=== PATIENT | female | born 1935 | race American Indian/Alaskan Native ===

== ENCOUNTER 2019-06-20 10:15 | Observation (INO) | payer MEDICARE ==
[2019-06-20] MEDS ORDERED: IPRATROPIUM 0.02% NEBU 2.5 ML IH ONE (10:55)
[2019-06-20] MEDS ORDERED: ALBUTEROL 2.5 MG/3 ML NEBU IH ONE ×2 (10:55→14:11)
[2019-06-20] MEDS ORDERED: methylPREDNISolone Sod Succinate 125 MG/2 ML INJ IV ONE (10:56)
[2019-06-20] MEDS ORDERED: MAGNESIUM SULFATE 2 GM/50 ML BAG IV ONE (10:56)
--- NOTE | 2019-06-20 10:58 | XRay Report ---
CHEST 2 VIEWS INDICATION: Short of breath. COMPARISON: None FINDINGS: Support devices: None. Heart: Mild cardiomegaly Lungs/pleura: No acute air space or interstitial disease. No pneumothorax. Additional findings: None. IMPRESSION: Cardiomegaly. Signer Name: Emmett Hernandez Jr, MD Signed: 06/20/2019 10:54 AM Workstation Name: [id number]
--- NOTE | 2019-06-20 11:00 | Emergency Department Report ---
ED Shortness of Breath HPI - General Chief Complaint: Dyspnea/Respdistress Stated Complaint: SOB Time Seen by Provider: 06/20/19 10:51 Source: patient, old records reviewed (No previous record in [facility] available for review) Mode of arrival: Ambulatory Limitations: No Limitations - History of Present Illness Initial Comments: 84-year-old female the past medical history of okf-zctdqtt-qkrsndule diabetes presents to the hospital complains of with wheezing and shortness of breath worsening today. Of last month patient has had intermittent wheezing shortness of breath and was diagnosed with bronchitis by her primary care doctor. She completed a course of 5 days of antibiotics with last dose 4 days ago. Patient continues to have cough productive of clear sputum, wheezing, shortness of breath, but denies fever, leg edema, chest pain, or recent travel. She does not think she was recently prescribed steroids. Patient denies chronic heart or l feroz disease. - Related Data Allergies Allergy/AdvReac Type Severity Reaction Status Date / Time No Known Allergies Allergy Verified 06/20/19 10:21 ED Review of Systems ROS: Stated complaint: SOB Other details as noted in HPI Comment: All other systems reviewed and negative ED Past Medical Hx - Past Medical History Hx Diabetes: Yes - Surgical History Past Surgical History?: No - Social History Smoking Status: Never Smoker Substance Use Type: None ED Physical Exam - General Limitations: No Limitations - Other Other exam information: General: No acute distress Head: Atraumatic Eyes: normal appearance ENT: Moist mucous membranes Neck: Normal appearance, no midline tenderness Chest: Bilateral wheezing, accessory muscle use or tachypnea, intermittent coughing CV: Mildly tachycardic regular rhythm Abdomen: Soft, normal bowel sounds, nontender, nondistended, no rebound or guarding Back: Normal inspection Extremity: Normal inspection, full range of motion, no calf tenderness or leg edema Neuro: Alert O x 3, no facial asymmetry, speech clear, no gross motor sensory deficit Psych: Appropriate behavior Skin: No rash ED Course Vital Signs 06/20/19 06/20/19 06/20/19 10:24 11:02 11:05 Temperature 98.5 F Pulse Rate 102 H Pulse Rate [ 93 H Bilateral] Respiratory 16 Rate Respiratory 16 Rate [Bilateral ] Blood Pressure 166/77 Blood Pressure [Right] O2 Sat by Pulse 95 98 Oximetry 03/13/20 03/13/20 03/13/20 11:15 11:29 11:30 Temperature Pulse Rate 91 H 86 Pulse Rate [ Bilateral] Respiratory 19 18 18 Rate Respiratory Rate [Bilateral ] Blood Pressure 136/65 131/64 Blood Pressure [Right] O2 Sat by Pulse 93 100 93 Oximetry 06/20/19 06/20/19 06/20/19 11:31 11:45 12:00 Temperature 98.2 F Pulse Rate 86 87 88 Pulse Rate [ Bilateral] Respiratory 19 19 18 Rate Respiratory Rate [Bilateral ] Blood Pressure 140/68 134/67 Blood Pressure 136/65 [Right] O2 Sat by Pulse 96 95 93 Oximetry 06/20/19 06/20/19 06/20/19 12:15 12:30 12:45 Temperature Pulse Rate 88 88 85 Pulse Rate [ Bilateral] Respiratory 19 17 17 Rate Respiratory Rate [Bilateral ] Blood Pressure 127/69 135/71 129/71 Blood Pressure [Right] O2 Sat by Pulse 90 92 96 Oximetry 06/20/19 06/20/19 06/20/19 13:05 13:15 13:30 Temperature Pulse Rate 105 H 97 H 103 H Pulse Rate [ Bilateral] Respiratory 21 16 16 Rate Respiratory Rate [Bilateral ] Blood Pressure 129/71 129/71 177/86 Blood Pressure [Right] O2 Sat by Pulse 98 97 Oximetry 06/20/19 14:40 Temperature Pulse Rate Pulse Rate [ 93 H Bilateral] Respiratory Rate Respiratory 16 Rate [Bilateral ] Blood Pressure Blood Pressure [Right] O2 Sat by Pulse Oximetry ED Medical Decision Making - Lab Data Result diagrams: 06/20/19 11:05 06/20/19 11:05 Lab Results 06/20/19 06/20/19 06/20/19 Range/Units 11:05 11:05 11:05 WBC 7.0 (4.5-11.0) K/mm3 RBC 4.41 (3.65-5.03) M/mm3 Hgb 12.9 (10.1-14.3) gm/dl Hct 38.5 (30.3-42.9) % MCV 87 (79-97) fl MCH 29 (28-32) pg MCHC 33 (30-34) % RDW 16.2 H (13.2-15.2) % Plt Count 244 (140-440) K/mm3 [place] % (Auto) Proposal Specialist Add Manual Diff Complete Total Counted 100 Seg Neuts % (Manual) 58.0 (40.0-70.0) % Band Neutrophils % 0 % Lymphocytes % (Manual) 17.0 (13.4-35.0) % Reactive Lymphs % (Man) 0 % Monocytes % (Manual) 20.0 H (0.0-7.3) % Eosinophils % (Manual) 5.0 H (0.0-4.3) % Basophils % (Manual) 0 (0.0-1.8) % Metamyelocytes % 0 % Myelocytes % 0 % Promyelocytes % 0 % Blast Cells % 0 % Nucleated RBC % Not Reportable Seg Neutrophils # Man 4.1 (1.8-7.7) K/mm3 Band Neutrophils # 0.0 K/mm3 Lymphocytes # (Manual) 1.2 (1.2-5.4) K/mm3 Abs React Lymphs (Man) 0.0 K/mm3 Monocytes # (Manual) 1.4 H (0.0-0.8) K/mm3 Eosinophils # (Manual) 0.4 (0.0-0.4) K/mm3 Basophils # (Manual) 0.0 (0.0-0.1) K/mm3 Metamyelocytes # 0.0 K/mm3 Myelocytes # 0.0 K/mm3 Promyelocytes # 0.0 K/mm3 Blast Cells # 0.0 K/mm3 WBC Morphology Not Reportable Hypersegmented Neuts Not Reportable Hyposegmented Neuts Not Reportable Hypogranular Neuts Not Reportable Smudge Cells Not Reportable Toxic Granulation Not Reportable Toxic Vacuolation Not Reportable Dohle Bodies Not Reportable Pelger-Huet Anomaly Not Reportable Cindy Rods Not Reportable Platelet Estimate Consistent w auto Clumped Platelets Not Reportable Plt Clumps, EDTA Not Reportable Large Platelets Not Reportable Giant Platelets Not Reportable Platelet Satelliting Not Reportable Plt Morphology Comment Not Reportable RBC Morphology Not Reportable Dimorphic RBCs Not Reportable Polychromasia Not Reportable Hypochromasia Not Reportable Poikilocytosis Not Reportable Anisocytosis Not Reportable Microcytosis Not Reportable Macrocytosis Not Reportable Spherocytes Not Reportable Pappenheimer Bodies Not Reportable Sickle Cells Not Reportable Target Cells Not Reportable Tear Drop Cells Not Reportable Ovalocytes Not Reportable Helmet Cells Not Reportable [place] Bodies Not Reportable [place] Not Reportable [place] Cells Not Reportable Bite Cells Not Reportable Crenated Cell Not Reportable Elliptocytes Not Reportable Acanthocytes (Spur) Not Reportable Rouleaux Not Reportable Hemoglobin C Crystals Not Reportable Schistocytes Not Reportable Malaria parasites Not Reportable Hitesh Bodies Not Reportable Hem Pathologist Commnt No Sodium 138 (137-145) mmol/L Potassium 4.4 (3.6-5.0) mmol/L Chloride 103.3 (98-107) mmol/L Carbon Dioxide 20 L (22-30) mmol/L Anion Gap 19 mmol/L BUN 7 (7-17) mg/dL Creatinine 0.9 (0.7-1.2) mg/dL Estimated GFR > 60 ml/min BUN/Creatinine Ratio 8 % Glucose 142 H (65-100) mg/dL Calcium 9.1 (8.4-10.2) mg/dL Troponin T (0.00-0.029) ng/mL NT-Pro-B Natriuret Pep 54.38 (0-900) pg/mL 06/20/19 Range/Units 11:05 WBC (4.5-11.0) K/mm3 RBC (3.65-5.03) M/mm3 Hgb (10.1-14.3) gm/dl Hct (30.3-42.9) % MCV (79-97) fl MCH (28-32) pg MCHC (30-34) % RDW (13.2-15.2) % Plt Count (140-440) K/mm3 [place] % (Auto) Add Manual Diff Total Counted Seg Neuts % (Manual) (40.0-70.0) % Band Neutrophils % % Lymphocytes % (Manual) (13.4-35.0) % Reactive Lymphs % (Man) % Monocytes % (Manual) (0.0-7.3) % Eosinophils % (Manual) (0.0-4.3) % Basophils % (Manual) (0.0-1.8) % Metamyelocytes % % Myelocytes % % Promyelocytes % % Blast Cells % % Nucleated RBC % Seg Neutrophils # Man (1.8-7.7) K/mm3 Band Neutrophils # K/mm3 Lymphocytes # (Manual) (1.2-5.4) K/mm3 Abs React Lymphs (Man) K/mm3 Monocytes # (Manual) (0.0-0.8) K/mm3 Eosinophils # (Manual) (0.0-0.4) K/mm3 Basophils # (Manual) (0.0-0.1) K/mm3 Metamyelocytes # K/mm3 Myelocytes # K/mm3 Promyelocytes # K/mm3 Blast Cells # K/mm3 WBC Morphology Hypersegmented Neuts Hyposegmented Neuts Hypogranular Neuts Smudge Cells Toxic Granulation Toxic Vacuolation Dohle Bodies Pelger-Huet Anomaly Cindy Rods Platelet Estimate Clumped Platelets Plt Clumps, EDTA Large Platelets Giant Platelets Platelet Satelliting Plt Morphology Comment RBC Morphology Dimorphic RBCs Polychromasia Hypochromasia Poikilocytosis Anisocytosis Microcytosis Macrocytosis Spherocytes Pappenheimer Bodies Sickle Cells Target Cells Tear Drop Cells Ovalocytes Helmet Cells [place] Bodies [place] Cells Bite Cells Crenated Cell Elliptocytes Acanthocytes (Spur) Rouleaux Hemoglobin C Crystals Schistocytes Malaria parasites Hitesh Bodies Hem Pathologist Commnt Sodium (137-145) mmol/L Potassium (3.6-5.0) mmol/L Chloride (98-107) mmol/L Carbon Dioxide (22-30) mmol/L Anion Gap mmol/L BUN (7-17) mg/dL Creatinine (0.7-1.2) mg/dL Estimated GFR ml/min BUN/Creatinine Ratio % Glucose (65-100) mg/dL Calcium (8.4-10.2) mg/dL Troponin T < 0.010 (0.00-0.029) ng/mL NT-Pro-B Natriuret Pep (0-900) pg/mL - EKG Data -: EKG Interpreted by Me (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 COMPARISON: None FINDINGS: Support devices: None. Heart: Mild cardiomegaly Lungs/pleura: No acute air space or inte rstitial disease. No pneumothorax. Additional findings: None. IMPRESSION: Cardiomegaly. - Medical Decision Making Patient treated in the ED for several hours and received 2 rounds of continuous nebs, steroids, and magnesium and still has significant wheezing and shortness of breath. O2 sat ranges between 93 to 97% on room air. Patient also was recently treated with a Z-Isaiah without improvement and only has an inhaler at home which is not helping with her symptoms. Patient will be admitted to the hospital for further treatment of acute bronchitis with wheezing and shortness of breath. No infiltrate identified on x-ray - Differential Diagnosis Asthma, CHF, bronchitis Critical Care Time: No Critical care attestation.: If time is entered above; I have spent that time in minutes in the direct care of this critically ill patient, excluding procedure time. ED Disposition Clinical Impression: Acute bronchitis, Wheezing, Failure of outpatient treatment Disposition: OP ADMIT IP TO THIS HOSP Is pt being admited?: Yes Condition: Stable Time of Disposition: 15:36 (Dr. Thomas/hospitalist)
[2019-06-20 11:33] LABS: Hematocrit 38.5 % (30.3-42.9); Hemoglobin 12.9 gm/dl (10.1-14.3); Mean Corpuscular HGB Conc 33 % (30-34); Mean Corpuscular Volume 87 fl (79-97); Platelet Count 244 K/mm3 (140-440); Red Blood Count 4.41 M/mm3 (3.65-5.03); Red Cell Distribution Width 16.2 % (13.2-15.2)
[2019-06-20 11:44] LABS: BUN/Creatinine Ratio 8; Blood Urea Nitrogen 7 mg/dL (7-17); Calcium 9.1 mg/dL (8.4-10.2); Hemolysis Index 3
[2019-06-20 13:19] LABS: Basophils % (Manual) 0 % (0.0-1.8); Total Cells Counted 100
[2019-06-20 13:20] LABS: Platelet Estimate Consistent w Auto
[2019-06-20] MEDS ORDERED: BENZONATATE 100 MG CAP PO ONE (14:10)
--- NOTE | 2019-06-20 23:07 | History and Physical Report ---
History of Present Illness Date of examination: 06/20/19 Date of admission: 06/20/19 15:37 Chief complaint: Cough and wheezing for 5 days History of present illness: 84-year-old female the past medical history of jkj-jixalto-gnoqrxnkk diabetes presents to the hospital complains of with wheezing and shortness of breath worsening today. Of last month patient has had intermittent wheezing shortness of breath and was diagnosed with bronchitis by her primary care doctor. She completed a course of 5 days of antibiotics with last dose 4 days ago. Patient continues to have cough productive of clear sputum, wheezing, shortness of breath, but denies fever, leg edema, chest pain, or recent travel. She does not think she was recently prescribed steroids. Patient denies chronic heart or lung disease. No exposure to [place] virus No exposure to foreign travelrs No exposure to quarantined patients Past Medical History Diabetes HTN HLD Surgical History Past Surgical History?: No Social History Smoking Status: Never Smoker Substance Use Type: None Family History Htn Review of Systems ROS: Stated complaint: SOB Other details as noted in HPI Comment: All other systems reviewed and negative Medications and Allergies Allergies Allergy/AdvReac Type Severity Reaction Status Date / Time No Known Allergies Allergy Verified 06/20/19 10:21 Home Medications Medication Instructions Recorded Confirmed Last Taken Type Loratadine 10 mg DAILY 06/20/19 06/20/19 06/20/19 08:00 History Lumigan 0.01% 1 drop OU HS 06/20/19 06/20/19 06/19/19 21:00 History Pravastatin [Pravachol] 20 mg PO DAILY 06/20/19 06/20/19 06/20/19 08:00 History amLODIPine 10 mg PO DAILY 06/20/19 06/20/19 06/20/19 08:00 History glipiZIDE [Glucotrol] 5 mg PO DAILY 06/20/19 06/20/19 06/20/19 08:00 History predniSONE [Deltasone] 40 mg AD DAILY 06/20/19 06/20/19 06/20/19 08:00 History Exam - Constitutional Vitals: Temp Pulse Resp BP Pulse Ox 98.2 F 105 H 19 172/76 94 06/20/19 11:31 06/20/19 18:31 06/20/19 20:00 06/20/19 20:00 06/20/19 20:00 General appearance: Present: no acute distress, well-nourished - EENT Eyes: Present: PERRL ENT: hearing intact, clear oral mucosa - Neck Neck: Present: supple, normal ROM - Respiratory Respiratory effort: normal Respiratory: bilateral: rhonchi, wheezing - Cardiovascular Heart rate: 78 Rhythm: regular Heart Sounds: Present: S1 & S2. Absent: rub, click - Extremities Extremities: no ischemia, pulses intact, pulses symmetrical, No edema Peripheral Pulses: within normal limits - Abdominal General gastrointestinal: Present: soft, non-tender, non-distended, normal bowel sounds Female genitourinary: Present: normal - Rectal Rectal Exam: deferred - Integumentary Integumentary: Present: clear, warm, dry - Musculoskeletal Musculoskeletal: gait normal, strength equal bilaterally - Psychiatric Psychiatric: appropriate mood/affect, intact judgment & insight - Neurologic Neurologic: CNII-XII intact, moves all extremities - Allied Health Allied health notes reviewed: nursing, case management Results - Labs CBC & Chem 7: 06/21/19 05:26 06/21/19 05:26 Labs: Laboratory Last Values WBC 7.0 K/mm3 (4.5-11.0) 06/20/19 11:05 RBC 4.41 M/mm3 (3.65-5.03) 06/20/19 11:05 Hgb 12.9 gm/dl (10.1-14.3) 06/20/19 11:05 Hct 38.5 % (30.3-42.9) 06/20/19 11:05 MCV 87 fl (79-97) 06/20/19 11:05 MCH 29 pg (28-32) 06/20/19 11:05 MCHC 33 % (30-34) 06/20/19 11:05 RDW 16.2 % (13.2-15.2) H 06/20/19 11:05 Plt Count 244 K/mm3 (140-440) 06/20/19 11:05 Jay % (Auto) Deicer Tester 06/20/19 11:05 Add Manual Diff Complete 06/20/19 11:05 Total Counted 100 06/20/19 11:05 Seg Neuts % (Manual) 58.0 % (40.0-70.0) 06/20/19 11:05 Band Neutrophils % 0 % 06/20/19 11:05 Lymphocytes % (Manual) 17.0 % (13.4-35.0) 06/20/19 11:05 Reactive Lymphs % (Man) 0 % 06/20/19 11:05 Monocytes % (Manual) 20.0 % (0.0-7.3) H 06/20/19 11:05 Eosinophils % (Manual) 5.0 % (0.0-4.3) H 06/20/19 11:05 Basophils % (Manual) 0 % (0.0-1.8) 06/20/19 11:05 Metamyelocytes % 0 % 06/20/19 11:05 Myelocytes % 0 % 06/20/19 11:05 Promyelocytes % 0 % 06/20/19 11:05 Blast Cells % 0 % 06/20/19 11:05 Nucleated RBC % Not Reportable 06/20/19 11:05 Seg Neutrophils # Man 4.1 K/mm3 (1.8-7.7) 06/20/19 11:05 Band Neutrophils # 0.0 K/mm3 06/20/19 11:05 Lymphocytes # (Manual) 1.2 K/mm3 (1.2-5.4) 06/20/19 11:05 Abs React Lymphs (Man) 0.0 K/mm3 06/20/19 11:05 Monocytes # (Manual) 1.4 K/mm3 (0.0-0.8) H 06/20/19 11:05 Eosinophils # (Manual) 0.4 K/mm3 (0.0-0.4) 06/20/19 11:05 Basophils # (Manual) 0.0 K/mm3 (0.0-0.1) 06/20/19 11:05 Metamyelocytes # 0.0 K/mm3 06/20/19 11:05 Myelocytes # 0.0 K/mm3 06/20/19 11:05 Promyelocytes # 0.0 K/mm3 06/20/19 11:05 Blast Cells # 0.0 K/mm3 06/20/19 11:05 WBC Morphology Not Reportable 06/20/19 11:05 Hypersegmented Neuts Not Reportable 06/20/19 11:05 Hyposegmented Neuts Not Reportable 06/20/19 11:05 Hypogranular Neuts Not Reportable 06/20/19 11:05 Smudge Cells Not Reportable 06/20/19 11:05 Toxic Granulation Not Reportable 06/20/19 11:05 Toxic Vacuolation Not Reportable 06/20/19 11:05 Dohle Bodies Not Reportable 06/20/19 11:05 Pelger-Huet Anomaly Not Reportable 06/20/19 11:05 Cindy Rods Not Reportable 06/20/19 11:05 Platelet Estimate Consistent w auto 06/20/19 11:05 Clumped Platelets Not Reportable 06/20/19 11:05 Plt Clumps, EDTA Not Reportable 06/20/19 11:05 Large Platelets Not Reportable 06/20/19 11:05 Giant Platelets Not Reportable 06/20/19 11:05 Platelet Satelliting Not Reportable 06/20/19 11:05 Plt Morphology Comment Not Reportable 06/20/19 11:05 RBC Morphology Not Reportable 06/20/19 11:05 Dimorphic RBCs Not Reportable 06/20/19 11:05 Polychromasia Not Reportable 06/20/19 11:05 Hypochromasia Not Reportable 06/20/19 11:05 Poikilocytosis Not Reportable 06/20/19 11:05 Anisocytosis Not Reportable 06/20/19 11:05 Microcytosis Not Reportable 06/20/19 11:05 Macrocytosis Not Reportable 06/20/19 11:05 Spherocytes Not Reportable 06/20/19 11:05 Pappenheimer Bodies Not Reportable 06/20/19 11:05 Sickle Cells Not Reportable 06/20/19 11:05 Target Cells Not Reportable 06/20/19 11:05 Tear Drop Cells Not Reportable 06/20/19 11:05 Ovalocytes Not Reportable 06/20/19 11:05 Helmet Cells Not Reportable 06/20/19 11:05 [place] Bodies Not Reportable 06/20/19 11:05 [place] Rings Not Reportable 06/20/19 11:05 [place] Cells Not Reportable 06/20/19 11:05 Bite Cells Not Reportable 06/20/19 11:05 Crenated Cell Not Reportable 06/20/19 11:05 Elliptocytes Not Reportable 06/20/19 11:05 Acanthocytes (Spur) Not Reportable 06/20/19 11:05 Rouleaux Not Reportable 06/20/19 11:05 Hemoglobin C Crystals Not Reportable 06/20/19 11:05 Schistocytes Not Reportable 06/20/19 11:05 Malaria parasites Not Reportable 06/20/19 11:05 Hitesh Bodies Not Reportable 06/20/19 11:05 Hem Pathologist Commnt No 06/20/19 11:05 Sodium 138 mmol/L (137-145) 06/20/19 11:05 Potassium 4.4 mmol/L (3.6-5.0) 06/20/19 11:05 Chloride 103.3 mmol/L (98-107) 06/20/19 11:05 Carbon Dioxide 20 mmol/L (22-30) L 06/20/19 11:05 Anion Gap 19 mmol/L 06/20/19 11:05 BUN 7 mg/dL (7-17) 06/20/19 11:05 Creatinine 0.9 mg/dL (0.7-1.2) 06/20/19 11:05 Estimated GFR > 60 ml/min 06/20/19 11:05 BUN/Creatinine Ratio 8 % 06/20/19 11:05 Glucose 142 mg/dL (65-100) H 06/20/19 11:05 Calcium 9.1 mg/dL (8.4-10.2) 06/20/19 11:05 Troponin T < 0.010 ng/mL (0.00-0.029) 06/20/19 11:05 NT-Pro-B Natriuret Pep 54.38 pg/mL (0-900) 06/20/19 11:05 - Imaging and Cardiology EKG: report reviewed (NSR,99/min RBBB and LAFB) Chest x-ray: report reviewed Imaging and Cardiology: CXR IMPRESSION: Cardiomegaly. Light/IV: IV Catheter Type [Right INT / Saline Lock Forearm] Assessment and Plan Advance Directives: Yes (Full code) VTE prophylaxis?: Chemical Plan of care discussed with patient/family: Yes - Patient Problems (1) Acute bronchitis Current Visit: Yes Status: Acute Qualifiers: Bronchitis organism: unspecified organism Qualified Code(s): J20.9 - Acute bronchitis, unspecified Plan to address problem: Failure to outpatient treatment IV abx IV steroids and Duonebs rtc and prn/ Bipap if nedcesary (2) Failure of outpatient treatment Current Visit: Yes Status: Acute Plan to address problem: patient admitted because of failure to out patient treatment. (3) HTN (hypertension) Current Visit: Yes Status: Chronic Qualifiers: Hypertension type: essential hypertension Qualified Code(s): I10 - Essential (primary) hypertension Plan to address problem: Cont antihypertensives (4) T2DM (type 2 diabetes mellitus) Current Visit: Yes Status: Chronic Qualifiers: Diabetes mellitus fdc insulin use: unspecified fdc insulin use status Plan to address problem: COnt oral hypoglycemics and coverage (5) HLD (hyperlipidemia) Current Visit: Yes Status: Chronic Qualifiers: Hyperlipidemia type: mixed hyperlipidemia Qualified Code(s): E78.2 - Mixed hyperlipidemia Plan to address problem: COnt statins (6) DVT prophylaxis Current Visit: Yes Status: Acute Plan to address problem: On Heparin Sq and GI prophylaxis
[2019-06-20] MEDS ORDERED: ACETAMINOPHEN 325 MG TAB PO PRN (23:09)
[2019-06-20] MEDS ORDERED: oxyCODONE /ACETAMINOPHEN 5-325MG TAB PO PRN (23:09)
[2019-06-20] MEDS ORDERED: MAGNESIUM HYDROXIDE (MOM) ORAL LIQD UDC PO PRN (23:09)
[2019-06-20] MEDS ORDERED: METOCLOPRAMIDE 10 MG/2 ML INJ IV PRN (23:09)
[2019-06-20] MEDS ORDERED: ONDANSETRON 4 MG/2 ML INJ IV PRN (23:09)
[2019-06-20] MEDS ORDERED: HYDROmorphone 1 MG/1 ML INJ IV PRN (23:09)
[2019-06-20] MEDS ORDERED: ALUM-MAG HYDROXIDE-SIMETHICONE 200-200-20MG/5ML ORAL LIQD 30 ML PO PRN (23:09)
[2019-06-20] MEDS ORDERED: IPRATROPIUM/ALBUTEROL SULFATE 3 ML AMPUL.NEB IH PRN (23:17)
[2019-06-20] MEDS ORDERED: ALBUTEROL 2.5 MG/3 ML NEBU IH PRN (23:29)
[2019-06-20] MEDS ORDERED: methylPREDNISolone Sod Succinate 125 MG/2 ML INJ IV SCH (23:45)
[2019-06-20 23:50] LABS: Eosinophils # (Auto) 0.4 K/mm3 (0.0-0.4); Eosinophils % (Auto) 5.9 % (0.0-4.3); Monocytes # (Auto) 1.1 K/mm3 (0.0-0.8)
[2019-06-21] MEDS: SODIUM CHLORIDE 0.9% 1000 ML 1,000 ML IV SCH (01:30)
[2019-06-21] MEDS: methylPREDNISolone Sod Succinate 125 MG/2 ML INJ IV SCH ×4 (01:43→21:32)
[2019-06-21 06:35] LABS: Basophils % (Auto) 0.1 % (0.0-1.8); Hematocrit 40.1 % (30.3-42.9); Hemoglobin 13.1 gm/dl (10.1-14.3); Lymphocytes # (Auto) 0.9 K/mm3 (1.2-5.4); Lymphocytes % (Auto) 11.6 % (13.4-35.0); Mean Corpuscular HGB Conc 33 % (30-34); Mean Corpuscular Volume 88 fl (79-97); Monocytes # (Auto) 0.5 K/mm3 (0.0-0.8); Monocytes % (Auto) 6.3 % (0.0-7.3); Platelet Count 251 K/mm3 (140-440); Red Blood Count 4.54 M/mm3 (3.65-5.03); Red Cell Distribution Width 16.5 % (13.2-15.2)
[2019-06-21 06:45] LABS: Alanine Aminotransferase 11 units/L (7-56); Albumin 3.8 g/dL (3.9-5); BUN/Creatinine Ratio 19; Blood Urea Nitrogen 13 mg/dL (7-17); Calcium 9.1 mg/dL (8.4-10.2); Hemolysis Index 17
[2019-06-21] MEDS: glipiZIDE 5 MG TAB PO SCH (08:30)
[2019-06-21] MEDS: IPRATROPIUM/ALBUTEROL SULFATE 3 ML AMPUL.NEB IH SCH ×4 (09:09→21:11)
[2019-06-21] MEDS: PRAVASTATIN 20 MG TAB PO SCH (09:54)
[2019-06-21] MEDS: amLODIPine 10 MG TAB PO SCH (09:54)
[2019-06-21] MEDS ORDERED: NON-FORMULARY EACH (Amlodipine 10 MG) PO SCH (10:00)
[2019-06-21] MEDS ORDERED: ONDANSETRON 4 MG/2 ML INJ IV PRN (11:48)
[2019-06-21] MEDS ORDERED: ACETAMINOPHEN 325 MG TAB PO PRN (11:48)
[2019-06-21] MEDS: FAMOTIDINE 20 MG TAB PO SCH ×2 (12:09→21:31)
--- NOTE | 2019-06-21 15:03 | Consultation ---
History of Present Illness Consult date: 06/21/19 Requesting physician: HECTOR RIGGINS Reason for consult: COPD History of present illness: PULMONARY/CCM CONSULT NOTE (Full dictation # [id number]) Please see dictated notes for full details - Rapid flu testing also Medications and Allergies Allergies Allergy/AdvReac Type Severity Reaction Status Date / Time No Known Allergies Allergy Verified 06/20/19 10:21 Home Medications Medication Instructions Recorded Confirmed Last Taken Type Loratadine 10 mg DAILY 06/20/19 06/20/19 06/20/19 08:00 History Lumigan 0.01% 1 drop OU HS 06/20/19 06/20/19 06/19/19 21:00 History Pravastatin [Pravachol] 20 mg PO DAILY 06/20/19 06/20/19 06/20/19 08:00 History amLODIPine 10 mg PO DAILY 06/20/19 06/20/19 06/20/19 08:00 History glipiZIDE [Glucotrol] 5 mg PO DAILY 06/20/19 06/20/19 06/20/19 08:00 History predniSONE [Deltasone] 40 mg AD DAILY 06/20/19 06/20/19 06/20/19 08:00 History Active Meds: Active Medications Acetaminophen (Tylenol) 650 mg PO Q4H PRN PRN Reason: Pain MILD(1-3)/Fever >100.5/JIMENES Al Hydrox/Mg Hydrox/Simethicone (Alum-Mag Hydrox-Simeth 119-701-40hb/5ml) 30 ml PO Q4H PRN PRN Reason: Indigestion Last Admin: 06/21/19 01:30 Dose: 30 ml Documented by: Albuterol (Proventil) 2.5 mg IH Q3HRT PRN PRN Reason: Wheezing Albuterol/Ipratropium (Duoneb *Not For Prn Use*) 1 ampul IH QIDRT REPLACED BY [facility] Last Admin: 06/21/19 11:45 Dose: 1 ampul Documented by: Amlodipine Besylate (Amlodipine) 10 mg PO DAILY REPLACED BY [facility] Last Admin: 06/21/19 09:54 Dose: 10 mg Documented by: Famotidine (Pepcid) 20 mg PO BID REPLACED BY [facility] Last Admin: 06/21/19 12:09 Dose: 20 mg Documented by: Glipizide (Glucotrol) 5 mg PO DAILY@0800 REPLACED BY [facility] Last Admin: 06/21/19 08:30 Dose: 5 mg Documented by: Hydromorphone HCl (Dilaudid) 0.5 mg IV Q3H PRN PRN Reason: Pain , Severe (7-10) Sodium Chloride (Nacl 0.9% 1000 Ml) 1,000 mls @ 75 mls/hr IV DIRECT REPLACED BY [facility] Last Admin: 06/21/19 01:30 Dose: 75 mls/hr Documented by: Levofloxacin/Dextrose (Levaquin 750mg/150ml) 750 mg in 150 mls @ 100 mls/hr IV Q48HR REPLACED BY [facility]; Protocol Last Admin: 06/21/19 09:54 Dose: 100 mls/hr Documented by: Latanoprost (Latanoprost 0.005%) 1 drops OU QHS BRITTANI Magnesium Hydroxide (Milk Of Magnesia) 30 ml PO Q4H PRN PRN Reason: Constipation Methylprednisolone Sodium Succinate (Solu-Medrol) 60 mg IV Q8HR REPLACED BY [facility] Last Admin: 06/21/19 07:53 Dose: 60 mg Documented by: Metoclopramide HCl (Reglan) 10 mg IV Q6H PRN PRN Reason: Nausea And Vomiting Ondansetron HCl (Zofran) 4 mg IV Q8H PRN PRN Reason: Nausea And Vomiting Oxycodone/Acetaminophen (Percocet 5/325) 1 tab PO Q6H PRN PRN Reason: Pain, Moderate (4-6) Pravastatin Sodium (Pravachol) 20 mg PO DAILY REPLACED BY [facility] Last Admin: 06/21/19 09:54 Dose: 20 mg Documented by: Sodium Chloride (Sodium Chloride Flush Syringe 10 Ml) 10 ml IV PRN PRN PRN Reason: LINE FLUSH Sodium Chloride (Sodium Chloride Flush Syringe 10 Ml) 10 ml IV BID REPLACED BY [facility] Physical Examination Vital signs: Vital Signs Temp Pulse Resp BP Pulse Ox 98.5 F 102 H 16 166/77 95 06/20/19 10:24 06/20/19 10:24 06/20/19 10:24 06/20/19 10:24 06/20/19 10:24 Results - Laboratory Findings CBC and BMP: 06/21/19 05:26 06/21/19 05:26 Abnormal lab findings: Abnormal Labs 06/20/19 06/20/19 06/20/19 11:05 11:05 11:05 RDW 16.2 H Lymph % (Auto) Eos % (Auto) 5.9 H Lymph # [place] # 1.1 H Seg Neutrophils % Monocytes % (Manual) 20.0 H Eosinophils % (Manual) 5.0 H Monocytes # (Manual) 1.4 H Sodium Carbon Dioxide 20 L Glucose 142 H POC Glucose Hemoglobin A1c 6.9 H Albumin 06/21/19 06/21/19 06/21/19 05:26 05:26 08:01 RDW 16.5 H Lymph % (Auto) 11.6 L Eos % (Auto) Lymph # 0.9 L [place] # Seg Neutrophils % 82.0 H Monocytes % (Manual) Eosinophils % (Manual) Monocytes # (Manual) Sodium 134 L Carbon Dioxide 20 L Glucose 192 H POC Glucose 202 H Hemoglobin A1c Albumin 3.8 L 06/21/19 11:35 RDW Lymph % (Auto) Eos % (Auto) Lymph # [place] # Seg Neutrophils % Monocytes % (Manual) Eosinophils % (Manual) Monocytes # (Manual) Sodium Carbon Dioxide Glucose POC Glucose 219 H Hemoglobin A1c Albumin
[2019-06-21] MEDS: FUROSEMIDE 20 MG/2 ML INJ IV SCH (21:28)
[2019-06-21] MEDS: ENOXAPARIN 40 MG/0.4 ML INJ SUB-Q SCH (21:31)
[2019-06-21 21:34] LABS: ABG Base Excess -2.7 mmol/L (-2.0-3.0); ABG HCO3 21.5 mmol/L (20.0-26.0); ABG Methemoglobin 0.6 % (0.0-1.5); ABG Oxygen Saturation 95.7 % (95.0-99.0); ABG PCO2 35.5 mm Hg; ABG PH 7.399 pH Units (7.350-7.450); ABG PO2 74.4 mm Hg (80.0-90.0)
[2019-06-21] MEDS ORDERED: LUMIGAN 0.01% OU SCH (22:00)
[2019-06-21] MEDS: LATANOPROST 0.005% OPHTH SOLN 2.5 ML OU SCH (22:43)
--- NOTE | 2019-06-22 00:30 | Consultation ---
PULMONARY CONSULTATION NOTE CONSULTING PHYSICIAN: Dr. Thomas. REASON FOR CONSULTATION: Obstructive lung disease. CHIEF COMPLAINT AND HISTORY OF PRESENT ILLNESS: The patient is a pleasant 84-year-old -[place] female with past medical history significant amongst other things for a diagnosis of ocx-vcbmgbf-[id number] diabetes, who came into the Emergency Room complaining of wheezing and shortness of breath that was getting worse on the day of presentation. It had been going on and off for about a week. She was seen by her primary care physician, treated with antibiotics as outpatient. She also had a cough productive of clear phlegm at times, but today occasionally blood streaked. She described increasing dyspnea on exertion. She denied any orthopnea. She denied any leg pain or swelling, either unilaterally or bilaterally. She denies any sick contacts. She is compliant with her flu vaccination and got one last year. Because her symptoms were not improving, she came into the Emergency Room for evaluation. In the Emergency Room, she was evaluated and amongst other things, was diagnosed with a possible bronchitis, CHF. We are asked to assist with management. When I stopped by to see her, she was resting in bed. She will occasionally cough. She states that it is hard to get it out at times. She denies any significant tobacco use or abuse history and does not document a history of significant secondhand exposures. She also denies occupational exposures to known pulmonary toxins or fumes. This really is as much of the history of presentation as I have. PAST MEDICAL HISTORY: Significant for: 1. Diabetes. 2. She is obese. PAST SURGICAL HISTORY: Unknown. MEDICATIONS: She was on at the time I stopped by to see her were reviewed, pertinent medications include the following: Tylenol 650 mg p.o. q. 4 hours p.r.n. mild pain or fever, DuoNeb nebulizer treatments nebulized q.i.d., amlodipine 10 mg p.o. daily, Pepcid 20 mg p.o. b.i.d., glipizide 5 mg p.o. daily, Dilaudid 0.5 mg IV q. 3 hours p.r.n. severe pain, latanoprost 0.005% eyedrops to affected eyes at bedtime, Levaquin 750 mg IV q. 48 hours, Solu-Medrol 60 mg IV q.8 hours, p.r.n. milk of magnesia, Reglan 10 mg IV q. 6 hours p.r.n. nausea and vomiting, Zofran 4 mg IV q. 8 hours p.r.n. nausea and vomiting, p.r.n. Percocet, Pravachol 20 mg p.o. daily. ALLERGIES: No known drug allergies. DIET: Obese lady. Denies acute weight loss or gain in the preceding few weeks to months. FAMILY AND SOCIAL HISTORY: Lives in the community. Denies a history of alcohol, tobacco, or illicit drug use or abuse. Family history is otherwise unknown. REVIEW OF SYSTEMS: No loss of consciousness. No new-onset seizures. No new-onset focal weakness. No gross hematochezia or melena. No gross hematuria. She has the streaky hemoptysis today. Also, denies dysuria. She denies any arthralgias. She denies heat or cold intolerance. Denies polydipsia. Denies polyuria. Complete 13-system review of systems is obtained. Pertinent positives and/or negatives as in body of the history above, otherwise noncontributory. Of note, she denies travel out of the [place] or recent long distance travel. This really is as much of the history of presentation as I have. PHYSICAL EXAMINATION: VITAL SIGNS: On examination at presentation in the Emergency Room, afebrile, temperature 98.5 degrees Fahrenheit, pulse of 102, respiratory rate of 16, blood pressure 166/97, O2 sats were 99%. Inspired oxygen concentration at that time was not recorded. When I stopped by to see her, O2 sats were 95% that was on 2 liters nasal cannula. GENERAL: Elderly looking, -[place] female, normocephalic, atraumatic, talking to me with slightly increased respiratory effort at rest. HEAD, EYES, EARS, NOSE, AND THROAT: She is anicteric. No conjunctival erythema. Oropharynx was moist. Mallampati #3 oropharynx. No gross jugular venous distention, no thyromegaly. She does have a large thick neck circumference. Grossly, there were no palpable lymph nodes in the supraclavicular or submandibular lymph node chains. She had mild intermittent jugular venous distention that disappeared below the clavicle on its own. LUNGS: Auscultation of both lung wood significant for bilateral rhonchi and occasional faint expiratory wheezes with prolonged expiratory phase. No accessory muscle use. HEART: Heart sounds 1 and 2 are heard. They were regular in rate and rhythm at the time of my evaluation without overt rubs or murmurs. ABDOMEN: Soft, full, protuberant, but not distended. Bowel sounds are positive and nontender. No palpable hepatosplenomegaly. EXTREMITIES: Without overt digital clubbing or cyanosis, no pedal edema. Pedal pulses are 2+ bilaterally. NEUROLOGIC: Pupils are equal, round, about 4 mm, reactive to light. Extraocular muscle movements are intact. She moves all 4 extremities spontaneously. SKIN: Normal turgor without overt cellulitis or rash. PSYCHIATRIC: Her mood was normal and affect was appropriate. LABORATORY DATA: From my review are as follows: Admission white cell count 7000, hemoglobin 12.9, hematocrit 38.5, platelet count 244. No band forms were reported. Serum sodium 138, potassium 4.4, chloride 103, bicarbonate 20, BUN 7, creatinine 0.9, glucose was 142. Hemoglobin A1c was 6.9. BNP was within normal limits. No microbiology studies. A PA chest x-ray was done. I have reviewed it as well as the radiologist's interpretation. There is borderline cardiomegaly. I cannot rule out small bilateral pleural effusions, possible mild plate-like basilar atelectasis. No gross pneumothorax, no gross bony fractures, no overt pulmonary edema. ASSESSMENT: 1. Acute respiratory failure. 2. Possible obstructive lung disease, new-onset asthma versus chronic obstructive pulmonary disease. 3. Obesity. 4. Mild metabolic acidosis. 5. History of diabetes. PLAN: We do agree with current medical treatment, it is empiric treatment for community-acquired pneumonia, systemic steroids that will be tapered over the next couple of days or so. We will continue short-acting bronchodilators. I will, however, make it b.i.d. I will add long-acting bronchodilators as well as inhaled corticosteroids. I will get an arterial blood gas just to evaluate for possible element of hypercapnia. We will watch her closely in terms of the mild metabolic acidosis/low serum bicarbonates. I will get a lactic acid level to better evaluate the acidosis. Glycemic control will be continued with sliding scale insulin for target blood sugars of less than 180 mg/dL acutely. I do feel she will benefit from a trial of diuretics, we will just do low-dose Lasix in the short term, just for the cardiomegaly and the possible small pleural effusions. She may benefit from Cardiology evaluation. I will order a 2D echo to better evaluate the cardiomegaly and evaluate for systolic or diastolic dysfunction. She is appropriately on GI prophylaxis. I will put her on DVT prophylaxis with Lovenox. Flu and pneumonia vaccination will be addressed per protocol. Thank you very much for the consult Dr. Thomas. We will follow along. We will make further recommendations as picture progresses/becomes clearer. JOB# [id number] MONICA/CONCHITA BREEN
[2019-06-22] MEDS: SODIUM CHLORIDE 0.9% 1000 ML 1,000 ML IV SCH ×2 (05:53→18:03)
[2019-06-22] MEDS: methylPREDNISolone Sod Succinate 125 MG/2 ML INJ IV SCH ×3 (05:53→21:45)
--- NOTE | 2019-06-22 06:28 | Progress Note ---
Assessment and Plan - Patient Problems (1) Acute bronchitis Current Visit: Yes Status: Acute Qualifiers: Bronchitis organism: unspecified organism Qualified Code(s): J20.9 - Acute bronchitis, unspecified Plan to address problem: Failure to outpatient treatment IV abx IV steroids and Duonebs rtc and prn/ Bipap if nedcesary Interval improement present Probable dischare tomorrow if better In Observation status Change to inpatient service if nor discharged (2) Failure of outpatient treatment Current Visit: Yes Status: Acute Plan to address problem: patient admitted because of failure to out patient treatment. (3) HTN (hypertension) Current Visit: Yes Status: Chronic Qualifiers: Hypertension type: essential hypertension Qualified Code(s): I10 - Essential (primary) hypertension Plan to address problem: Cont antihypertensives (4) T2DM (type 2 diabetes mellitus) Current Visit: Yes Status: Chronic Qualifiers: Diabetes mellitus buttermaker helper insulin use: unspecified buttermaker helper insulin use status Plan to address problem: COnt oral hypoglycemics and coverage (5) HLD (hyperlipidemia) Current Visit: Yes Status: Chronic Qualifiers: Hyperlipidemia type: mixed hyperlipidemia Qualified Code(s): E78.2 - Mixed hyperlipidemia Plan to address problem: COnt statins (6) DVT prophylaxis Current Visit: Yes Status: Acute Plan to address problem: On Heparin Sq and GI prophylaxis Subjective Date of service: 06/22/19 Principal diagnosis: Acute bronchitis not responding to out patient therpy Interval history: 84-year-old female the past medical history of dhn-igdgefc-ivreulbwp diabetes presents to the hospital complains of with wheezing and shortness of breath worsening today. Of last month patient has had intermittent wheezing shortness of breath and was diagnosed with bronchitis by her primary care doctor. She completed a course of 5 days of antibiotics with last dose 4 days ago. Patient continues to have cough productive of clear sputum, wheezing, shortness of breath, but denies fever, leg edema, chest pain, or recent travel. She does not think she was recently prescribed steroids. Patient denies chronic heart or lung disease. No exposure to [place] virus No exposure to foreign travelrs No exposure to quarantined patients Inter improment present Overnite events noted Objective - Constitutional Vitals: Vital Signs - 12hr 06/21/19 06/21/19 06/21/19 20:30 20:31 21:17 Temperature 99.2 F Pulse Rate 86 83 Pulse Rate [ 82 Anterior Bilateral Throughout] Respiratory 20 Rate Respiratory 20 Rate [Anterior Bilateral Throughout] Blood Pressure 189/80 Blood Pressure [Left] O2 Sat by Pulse 90 96 Oximetry 06/22/19 06/22/19 06/22/19 00:30 03:30 03:31 Temperature 98.9 F 97.3 F L Pulse Rate 85 81 82 Pulse Rate [ Anterior Bilateral Throughout] Respiratory 20 18 Rate Respiratory Rate [Anterior Bilateral Throughout] Blood Pressure 175/90 Blood Pressure 139/65 [Left] O2 Sat by Pulse 94 100 100 Oximetry 06/22/19 03:46 Temperature Pulse Rate Pulse Rate [ Anterior Bilateral Throughout] Respiratory Rate Respiratory Rate [Anterior Bilateral Throughout] Blood Pressure 169/71 Blood Pressure [Left] O2 Sat by Pulse Oximetry General appearance: Present: mild distress, well-nourished - EENT Eyes: PERRL, EOM intact ENT: hearing intact, clear oral mucosa Ears: bilateral: normal - Neck Neck: supple, normal ROM - Respiratory Respiratory effort: normal Respiratory: bilateral: CTA - Breasts Breasts: normal - Cardiovascular Heart rate: 78 Rhythm: regular Heart Sounds: Present: S1 & S2. Absent: gallop, rub Extremities: pulses intact, No edema, normal color, Full ROM - Gastrointestinal General gastrointestinal: Present: soft, non-tender, non-distended, normal bowel sounds - Genitourinary Female genitourinary: normal - Integumentary Integumentary: clear, warm, dry - Musculoskeletal Musculoskeletal: 1, strength equal bilaterally - Neurologic Neurologic: moves all extremities - Psychiatric Psychiatric: memory intact, appropriate mood/affect, intact judgment & insight - Allied health notes Allied health notes reviewed: nursing, case management - Labs CBC & Chem 7: 06/21/19 05:26 06/21/19 05:26 Labs: Abnormal lab results 06/21/19 06/21/19 06/21/19 Range/Units 05:26 05:26 08:01 RDW 16.5 H (13.2-15.2) % Lymph % (Auto) 11.6 L (13.4-35.0) % Lymph # 0.9 L (1.2-5.4) K/mm3 Seg Neutrophils % 82.0 H (40.0-70.0) % ABG pO2 (80.0-90.0) mm Hg ABG Base Excess (-2.0-3.0) mmol/L Oxyhemoglobin (95.0-99.0) % Sodium 134 L (137-145) mmol/L Carbon Dioxide 20 L (22-30) mmol/L Glucose 192 H (65-100) mg/dL POC Glucose 202 H (70-105) Lactic Acid (0.7-2.0) mmol/L Albumin 3.8 L (3.9-5) g/dL 06/21/19 06/21/19 06/21/19 Range/Units 11:35 16:54 19:42 RDW (13.2-15.2) % Lymph % (Auto) (13.4-35.0) % Lymph # (1.2-5.4) K/mm3 Seg Neutrophils % (40.0-70.0) % ABG pO2 (80.0-90.0) mm Hg ABG Base Excess (-2.0-3.0) mmol/L Oxyhemoglobin (95.0-99.0) % Sodium (137-145) mmol/L Carbon Dioxide (22-30) mmol/L Glucose (65-100) mg/dL POC Glucose 219 H 126 H (70-105) Lactic Acid 2.60 H* (0.7-2.0) mmol/L Albumin (3.9-5) g/dL 06/21/19 06/21/19 06/21/19 Range/Units 21:22 22:16 23:19 RDW (13.2-15.2) % Lymph % (Auto) (13.4-35.0) % Lymph # (1.2-5.4) K/mm3 Seg Neutrophils % (40.0-70.0) % ABG pO2 74.4 L (80.0-90.0) mm Hg ABG Base Excess -2.7 L (-2.0-3.0) mmol/L Oxyhemoglobin 93.8 L (95.0-99.0) % Sodium (137-145) mmol/L Carbon Dioxide (22-30) mmol/L Glucose (65-100) mg/dL POC Glucose 307 H (70-105) Lactic Acid 3.20 H* (0.7-2.0) mmol/L Albumin (3.9-5) g/dL
[2019-06-22] MEDS: IPRATROPIUM/ALBUTEROL SULFATE 3 ML AMPUL.NEB IH SCH ×4 (08:12→20:33)
[2019-06-22] MEDS: amLODIPine 10 MG TAB PO SCH (09:15)
[2019-06-22] MEDS: FAMOTIDINE 20 MG TAB PO SCH ×2 (09:15→21:45)
[2019-06-22] MEDS: PRAVASTATIN 20 MG TAB PO SCH (09:16)
[2019-06-22] MEDS: glipiZIDE 5 MG TAB PO SCH (09:16)
[2019-06-22] MEDS: FUROSEMIDE 20 MG/2 ML INJ IV SCH (09:16)
[2019-06-22] MEDS: INSULIN LISPRO 100 UNIT/ML SUB-Q SCH ×5 (09:17→22:00)
--- NOTE | 2019-06-22 10:59 | Progress Note ---
Subjective Date of service: 06/22/19 Principal diagnosis: Acute bronchitis not responding to out patient therpy Interval history: Patient is awake and alert, feels better but complains of coughing spell every time she tries to talk Not in any acute distress Denies any chest pain palpitations or dizziness Denies fever or chills States shortness of breath is improving well On examination Alert and oriented Vital signs reviewed HEENT Normocephalic pupils are round reactive to light Throat is clear Neck is supple Lungs bilateral scattered expiratory rhonchi Heart S1-S2 regular rate and rhythm Abdomen benign No leg edema Lab results reviewed Lactic acid trending down and is normal this morning Assessment and plan Acute bronchitis-failed outpatient treatment Continue IV antibiotics and IV steroids Continue neb treatments with DuoNeb solution Possible discharge tomorrow if there is further improvement Type 2 diabetes Continue insulin sliding scale coverage and oral hypoglycemics Hypertension-fair Continue present medications Hyperlipidemia Continue statin Hyponatremia Mild-no need for hyponatremia work-up Repeat serum electrolytes in a.m. Objective - Constitutional Vitals: Vital Signs - 12hr 06/22/19 06/22/19 06/22/19 00:30 03:30 03:31 Temperature 98.9 F 97.3 F L Pulse Rate 85 81 82 Pulse Rate [ From Monitor] Respiratory 20 18 Rate Blood Pressure 175/90 Blood Pressure 139/65 [Left] O2 Sat by Pulse 94 100 100 Oximetry 06/22/19 06/22/19 06/22/19 03:46 07:35 10:25 Temperature 98.7 F Pulse Rate 71 Pulse Rate [ 71 From Monitor] Respiratory 20 20 Rate Blood Pressure 169/71 146/62 Blood Pressure [Left] O2 Sat by Pulse 92 92 Oximetry - Labs CBC & Chem 7: 06/21/19 05:26 06/21/19 05:26 Labs: Abnormal lab results 06/21/19 06/21/19 06/21/19 Range/Units 11:35 16:54 19:42 ABG pO2 (80.0-90.0) mm Hg ABG Base Excess (-2.0-3.0) mmol/L Oxyhemoglobin (95.0-99.0) % POC Glucose 219 H 126 H (70-105) Lactic Acid 2.60 H* (0.7-2.0) mmol/L 06/21/19 06/21/19 06/21/19 Range/Units 21:22 22:16 23:19 ABG pO2 74.4 L (80.0-90.0) mm Hg ABG Base Excess -2.7 L (-2.0-3.0) mmol/L Oxyhemoglobin 93.8 L (95.0-99.0) % POC Glucose 307 H (70-105) Lactic Acid 3.20 H* (0.7-2.0) mmol/L 06/22/19 Range/Units 07:43 ABG pO2 (80.0-90.0) mm Hg ABG Base Excess (-2.0-3.0) mmol/L Oxyhemoglobin (95.0-99.0) % POC Glucose 158 H (70-105) Lactic Acid (0.7-2.0) mmol/L
--- NOTE | 2019-06-22 14:39 | Progress Note ---
Assessment and Plan Acute respiratory failure. Possible obstructive lung disease (New-onset asthma vs COPD) Obesity. Mild metabolic acidosis. H/O diabetes. - gentle hydration re: lactic acidosis - continue to wean supplemental oxygen to keep O2 sats > 90% - continue Bronchodilators (STEW & LABA) with pulm hygiene per RT - continue systemic steroids with slow taper - continue inhaled corticosteroids - continue to avoid nephrotoxins, renally dose all medications - continue mobility protocols to prevent pressure ulcers - PT/OT as tolerated - Wound care per RN/WCT - continue accuchecks with glycemic control per SSI for target blood glucose < 180 mg/dL - Smoking cessation strongly counseled at the bedside - home oxygen evaluation at discharge - GI & VTE prophylaxis - Flu & pneumovax per protocol - Pulmonary out patient follow up for PFTs and optimization of respiratory status - continue other care per attending / other consultants - prn analgesia per pain score ... re-evaluate in am & prn Subjective Date of service: 06/22/19 Principal diagnosis: Acute bronchitis not responding to out patient therpy Interval history: Patient is seen today for: Acute respiratory failure; Possible obstructive lung disease (New-onset asthma vs COPD); Obesity; Mild metabolic acidosis; H/O diabetes. Seen and examined at bedside; 24hour events reviewed; nursing and respiratory care staff consulted; no adverse overnight events reported to me; resting pe acefully in bed; still with intermittent coughing spells; no hemoptysis; No N/V/F/C Objective Vital Signs - 12hr 06/22/19 06/22/19 06/22/19 03:30 03:31 03:46 Temperature 97.3 F L Pulse Rate 81 82 Pulse Rate [ Anterior Bilateral Throughout] Pulse Rate [ Anterior Bilateral] Pulse Rate [ From Monitor] Respiratory 18 Rate Respiratory Rate [Anterior Bilateral Throughout] Respiratory Rate [Anterior Bilateral] Blood Pressure 175/90 169/71 O2 Sat by Pulse 100 100 Oximetry 06/22/19 06/22/19 06/22/19 07:35 10:25 11:54 Temperature 98.7 F Pulse Rate 71 Pulse Rate [ 92 H Anterior Bilateral Throughout] Pulse Rate [ 88 Anterior Bilateral] Pulse Rate [ 71 From Monitor] Respiratory 20 20 Rate Respiratory 18 Rate [Anterior Bilateral Throughout] Respiratory 18 Rate [Anterior Bilateral] Blood Pressure 146/62 O2 Sat by Pulse 92 92 Oximetry 06/22/19 13:07 Temperature 97.6 F Pulse Rate 81 Pulse Rate [ Anterior Bilateral Throughout] Pulse Rate [ Anterior Bilateral] Pulse Rate [ From Monitor] Respiratory 20 Rate Respiratory Rate [Anterior Bilateral Throughout] Respiratory Rate [Anterior Bilateral] Blood Pressure 132/67 O2 Sat by Pulse 92 Oximetry Constitutional: no acute distress, alert, other (elderly looking obese AAF, normocephalic with mil;dly increased resp effort at rest) Eyes: non-icteric ENT: oropharynx moist Neck: supple, no lymphadenopathy, no JVD Effort: mildly labored Ascultation: Bilateral: diminished breath sounds, rhonchi (scant in base) Percussion: Bilateral: not dull Cardiovascular: regular rate and rhythm Gastrointestinal: normoactive bowel sounds, soft, non-tender, non-distended Integumentary: normal Extremities: no cyanosis, no edema, pulses normal, no ischemia or petechiae Neurologic: normal mental status, non-focal exam (grossly), pupils equal and round, CN II-XII normal, motor strength normal and Psychiatric: mood appropriate, affect normal CBC and BMP: 06/21/19 05:26 06/21/19 05:26 ABG, PT/INR, D-dimer: ABG ABG pH 7.399 pH Units (7.350-7.450) 06/21/19 21:22 ABG pCO2 35.5 mm Hg 06/21/19 21:22 ABG pO2 74.4 mm Hg (80.0-90.0) L 06/21/19 21:22 ABG O2 Saturation 95.7 % (95.0-99.0) 06/21/19 21:22 Abnormal lab findings: Abnormal Labs 06/20/19 06/20/19 06/20/19 11:05 11:05 11:05 RDW 16.2 H Lymph % (Auto) Eos % (Auto) 5.9 H Lymph # [place] # 1.1 H Seg Neutrophils % Monocytes % (Manual) 20.0 H Eosinophils % (Manual) 5.0 H Monocytes # (Manual) 1.4 H ABG pO2 ABG Base Excess Oxyhemoglobin Sodium Carbon Dioxide 20 L Glucose 142 H POC Glucose Hemoglobin A1c 6.9 H Lactic Acid Albumin 06/21/19 06/21/19 06/21/19 05:26 05:26 08:01 RDW 16.5 H Lymph % (Auto) 11.6 L Eos % (Auto) Lymph # 0.9 L [place] # Seg Neutrophils % 82.0 H Monocytes % (Manual) Eosinophils % (Manual) Monocytes # (Manual) ABG pO2 ABG Base Excess Oxyhemoglobin Sodium 134 L Carbon Dioxide 20 L Glucose 192 H POC Glucose 202 H Hemoglobin A1c Lactic Acid Albumin 3.8 L 06/21/19 06/21/19 06/21/19 11:35 16:54 19:42 RDW Lymph % (Auto) Eos % (Auto) Lymph # [place] # Seg Neutrophils % Monocytes % (Manual) Eosinophils % (Manual) Monocytes # (Manual) ABG pO2 ABG Base Excess Oxyhemoglobin Sodium Carbon Dioxide Glucose POC Glucose 219 H 126 H Hemoglobin A1c Lactic Acid 2.60 H* Albumin 06/21/19 06/21/19 06/21/19 21:22 22:16 23:19 RDW Lymph % (Auto) Eos % (Auto) Lymph # [place] # Seg Neutrophils % Monocytes % (Manual) Eosinophils % (Manual) Monocytes # (Manual) ABG pO2 74.4 L ABG Base Excess -2.7 L Oxyhemoglobin 93.8 L Sodium Carbon Dioxide Glucose POC Glucose 307 H Hemoglobin A1c Lactic Acid 3.20 H* Albumin 06/22/19 06/22/19 07:43 11:40 RDW Lymph % (Auto) Eos % (Auto) Lymph # [place] # Seg Neutrophils % Monocytes % (Manual) Eosinophils % (Manual) Monocytes # (Manual) ABG pO2 ABG Base Excess Oxyhemoglobin Sodium Carbon Dioxide Glucose POC Glucose 158 H 135 H Hemoglobin A1c Lactic Acid Albumin Chest x-ray: image reviewed
[2019-06-22] MEDS: ENOXAPARIN 40 MG/0.4 ML INJ SUB-Q SCH (21:45)
[2019-06-22] MEDS: LATANOPROST 0.005% OPHTH SOLN 2.5 ML OU SCH (21:46)
[2019-06-23] MEDS: methylPREDNISolone Sod Succinate 125 MG/2 ML INJ IV SCH ×2 (05:09→14:27)
[2019-06-23] MEDS: SODIUM CHLORIDE 0.9% 1000 ML 1,000 ML IV SCH (05:10)
[2019-06-23] MEDS: IPRATROPIUM/ALBUTEROL SULFATE 3 ML AMPUL.NEB IH SCH ×3 (07:36→18:14)
--- NOTE | 2019-06-23 09:23 | Progress Note ---
Assessment and Plan Assessment and plan: --Hypertensive urgency; blood pressure more than 200 systolic Add hydralazine 25 mg 3 times a day, IV hydralazine 20 mg 1 dose now Closely monitor blood pressures and adjust as needed --Acute bronchitis-failed outpatient treatment Continue IV antibiotics and IV steroids Continue neb treatments with DuoNeb solution Possible discharge tomorrow if there is further improvement --Type 2 diabetes Continue insulin sliding scale coverage and oral hypoglycemics --Hypertension uncontrolled Continue present medications --Hyperlipidemia Continue statin --Hyponatremia Mild-no need for hyponatremia work-up Repeat serum electrolytes in a.m. Hospitalist Physical - Constitutional Vitals: Temp Pulse Resp BP Pulse Ox 98.9 F 64 20 200/83 93 06/23/19 07:40 06/23/19 07:40 06/23/19 07:40 06/23/19 07:40 06/23/19 07:40 General appearance: Present: mild distress, well-nourished Results - Labs CBC & Chem 7: 06/21/19 05:26 06/21/19 05:26 Labs: Laboratory Last Values WBC 7.3 K/mm3 (4.5-11.0) 06/21/19 05:26 RBC 4.54 M/mm3 (3.65-5.03) 06/21/19 05:26 Hgb 13.1 gm/dl (10.1-14.3) 06/21/19 05:26 Hct 40.1 % (30.3-42.9) 06/21/19 05:26 MCV 88 fl (79-97) 06/21/19 05:26 MCH 29 pg (28-32) 06/21/19 05:26 MCHC 33 % (30-34) 06/21/19 05:26 RDW 16.5 % (13.2-15.2) H 06/21/19 05:26 Plt Count 251 K/mm3 (140-440) 06/21/19 05:26 Lymph % (Auto) 11.6 % (13.4-35.0) L 06/21/19 05:26 [place] % (Auto) 6.3 % (0.0-7.3) 06/21/19 05:26 Eos % (Auto) 0.0 % (0.0-4.3) 06/21/19 05:26 Baso % (Auto) 0.1 % (0.0-1.8) 06/21/19 05: Lymph # 0.9 K/mm3 (1.2-5.4) L 06/21/19 05: [place] # 0.5 K/mm3 (0.0-0.8) 06/21/19 05: Eos # 0.0 K/mm3 (0.0-0.4) 06/21/19 05: Baso # 0.0 K/mm3 (0.0-0.1) 06/21/19 05:26 Add Manual Diff Complete 06/20/19 11:05 Total Counted 100 06/20/19 11:05 Seg Neutrophils % 82.0 % (40.0-70.0) H 06/21/19 05:26 Seg Neuts % (Manual) 58.0 % (40.0-70.0) 06/20/19 11:05 Band Neutrophils % 0 % 06/20/19 11:05 Lymphocytes % (Manual) 17.0 % (13.4-35.0) 06/20/19 11:05 Reactive Lymphs % (Man) 0 % 06/20/19 11:05 Monocytes % (Manual) 20.0 % (0.0-7.3) H 06/20/19 11:05 Eosinophils % (Manual) 5.0 % (0.0-4.3) H 06/20/19 11:05 Basophils % (Manual) 0 % (0.0-1.8) 06/20/19 11:05 Metamyelocytes % 0 % 06/20/19 11:05 Myelocytes % 0 % 06/20/19 11:05 Promyelocytes % 0 % 06/20/19 11:05 Blast Cells % 0 % 06/20/19 11:05 Nucleated RBC % Not Reportable 06/20/19 11:05 Seg Neutrophils # 6.0 K/mm3 (1.8-7.7) 06/21/19 05:26 Seg Neutrophils # Man 4.1 K/mm3 (1.8-7.7) 06/20/19 11:05 Band Neutrophils # 0.0 K/mm3 06/20/19 11:05 Lymphocytes # (Manual) 1.2 K/mm3 (1.2-5.4) 06/20/19 11:05 Abs React Lymphs (Man) 0.0 K/mm3 06/20/19 11:05 Monocytes # (Manual) 1.4 K/mm3 (0.0-0.8) H 06/20/19 11:05 Eosinophils # (Manual) 0.4 K/mm3 (0.0-0.4) 06/20/19 11:05 Basophils # (Manual) 0.0 K/mm3 (0.0-0.1) 06/20/19 11:05 Metamyelocytes # 0.0 K/mm3 06/20/19 11:05 Myelocytes # 0.0 K/mm3 06/20/19 11:05 Promyelocytes # 0.0 K/mm3 06/20/19 11:05 Blast Cells # 0.0 K/mm3 06/20/19 11:05 WBC Morphology Not Reportable 06/20/19 11:05 Hypersegmented Neuts Not Reportable 06/20/19 11:05 Hyposegmented Neuts Not Reportable 06/20/19 11:05 Hypogranular Neuts Not Reportable 06/20/19 11:05 Smudge Cells Not Reportable 06/20/19 11:05 Toxic Granulation Not Reportable 06/20/19 11:05 Toxic Vacuolation Not Reportable 06/20/19 11:05 Dohle Bodies Not Reportable 06/20/19 11:05 Pelger-Huet Anomaly Not Reportable 06/20/19 11:05 Cindy Rods Not Reportable 06/20/19 11:05 Platelet Estimate Consistent w auto 06/20/19 11:05 Clumped Platelets Not Reportable 06/20/19 11:05 Plt Clumps, EDTA Not Reportable 06/20/19 11:05 Large Platelets Not Reportable 06/20/19 11:05 Giant Platelets Not Reportable 06/20/19 11:05 Platelet Satelliting Not Reportable 06/20/19 11:05 Plt Morphology Comment Not Reportable 06/20/19 11:05 RBC Morphology Not Reportable 06/20/19 11:05 Dimorphic RBCs Not Reportable 06/20/19 11:05 Polychromasia Not Reportable 06/20/19 11:05 Hypochromasia Not Reportable 06/20/19 11:05 Poikilocytosis Not Reportable 06/20/19 11:05 Anisocytosis Not Reportable 06/20/19 11:05 Microcytosis Not Reportable 06/20/19 11:05 Macrocytosis Not Reportable 06/20/19 11:05 Spherocytes Not Reportable 06/20/19 11:05 Pappenheimer Bodies Not Reportable 06/20/19 11:05 Sickle Cells Not Reportable 06/20/19 11:05 Target Cells Not Reportable 06/20/19 11:05 Tear Drop Cells Not Reportable 06/20/19 11:05 Ovalocytes Not Reportable 06/20/19 11:05 Helmet Cells Not Reportable 06/20/19 11:05 [place] Bodies Not Reportable 06/20/19 11:05 [place] Rings Not Reportable 06/20/19 11:05 [place] Cells Not Reportable 06/20/19 11:05 Bite Cells Not Reportable 06/20/19 11:05 Crenated Cell Not Reportable 06/20/19 11:05 Elliptocytes Not Reportable 06/20/19 11:05 Acanthocytes (Spur) Not Reportable 06/20/19 11:05 Rouleaux Not Reportable 06/20/19 11:05 Hemoglobin C Crystals Not Reportable 06/20/19 11:05 Schistocytes Not Reportable 06/20/19 11:05 Malaria parasites Not Reportable 06/20/19 11:05 Hitesh Bodies Not Reportable 06/20/19 11:05 Hem Pathologist Commnt No 06/20/19 11:05 ABG pH 7.399 pH Units (7.350-7.450) 06/21/19 21: ABG pCO2 35.5 mm Hg 06/21/19 21: ABG pO2 74.4 mm Hg (80.0-90.0) L 06/21/19 21: ABG HCO3 21.5 mmol/L (20.0-26.0) 06/21/19 21: ABG O2 Saturation 95.7 % (95.0-99.0) 06/21/19 21: ABG O2 Content 17.0 (0.0-44) 06/21/19 21: ABG Base Excess -2.7 mmol/L (-2.0-3.0) L 06/21/19 21: ABG Hemoglobin 12.9 gm/dl (12.0-16.0) 06/21/19 21:22 ABG Carboxyhemoglobin 1.3 % (0.0-5.0) 06/21/19 21:22 ABG Methemoglobin 0.6 % (0.0-1.5) 06/21/19 21:22 Oxyhemoglobin 93.8 % (95.0-99.0) L 06/21/19 21:22 FiO2 21 % 06/21/19 21:22 Sodium 134 mmol/L (137-145) L 06/21/19 05:26 Potassium 4.9 mmol/L (3.6-5.0) 06/21/19 05:26 Chloride 99.8 mmol/L (98-107) 06/21/19 05:26 Carbon Dioxide 20 mmol/L (22-30) L 06/21/19 05:26 Anion Gap 19 mmol/L 06/21/19 05:26 BUN 13 mg/dL (7-17) 06/21/19 05:26 Creatinine 0.7 mg/dL (0.7-1.2) 06/21/19 05:26 Estimated GFR > 60 ml/min 06/21/19 05:26 BUN/Creatinine Ratio 19 % 06/21/19 05:26 Glucose 192 mg/dL (65-100) H 06/21/19 05:26 POC Glucose 180 (70-105) H 06/23/19 07:52 Hemoglobin A1c 6.9 % (4-6) H 06/20/19 11:05 Lactic Acid 1.80 mmol/L (0.7-2.0) 06/22/19 04:20 Calcium 9.1 mg/dL (8.4-10.2) 06/21/19 05:26 Total Bilirubin 0.20 mg/dL (0.1-1.2) 06/21/19 05:26 AST 18 units/L (5-40) 06/21/19 05:26 ALT 11 units/L (7-56) 06/21/19 05:26 Alkaline Phosphatase 68 units/L (35-129) 06/21/19 05:26 Troponin T < 0.010 ng/mL (0.00-0.029) 06/20/19 11:05 NT-Pro-B Natriuret Pep 54.38 pg/mL (0-900) 06/20/19 11:05 Total Protein 7.9 g/dL (6.3-8.2) 06/21/19 05:26 Albumin 3.8 g/dL (3.9-5) L 06/21/19 05:26 Albumin/Globulin Ratio 0.9 % 06/21/19 05:26 Light/IV: Voiding Method Toilet IV Catheter Type [Right INT / Saline Lock Forearm] Active Medications - Current Medications Current Medications: Generic Name Dose Route Start Last Admin Trade Name Freq PRN Reason Stop Dose Admin Acetaminophen 650 mg 06/21/19 11:48 Tylenol PO Q4H PRN Pain MILD(1-3)/Fever >100.5/JIMENES Al Hydrox/Mg Hydrox/Simethicone 30 ml 06/20/19 23:09 06/21/19 01:30 Alum-Mag Hydrox-Simeth 721-678-63nl/5ml PO 30 ml Q4H PRN Administration Indigestion Albuterol 2.5 mg 06/20/19 23:29 Proventil IH Q3HRT PRN Wheezing Albuterol/Ipratropium 1 ampul 06/21/19 08:00 06/23/19 07:36 Duoneb *Not For Prn Use* IH 1 ampul QIDRT BRITTANI Administration Amlodipine Besylate 10 mg 06/21/19 10:00 06/22/19 09:15 Amlodipine PO 10 mg DAILY BRITTANI Administration Enoxaparin Sodium 40 mg 06/21/19 22:00 06/22/19 21:45 Enoxaparin SUB-Q 40 mg QDAY@2200 BRITTANI Administration Famotidine 20 mg 06/21/19 12:00 06/22/19 21:45 Pepcid PO 20 mg BID BRITTANI Administration Glipizide 5 mg 06/21/19 08:00 06/22/19 09:16 Glucotrol PO 5 mg DAILY@0800 BRITTANI Administration Hydromorphone HCl 0.5 mg 06/20/19 23:09 Dilaudid IV Q3H PRN Pain , Severe (7-10) Sodium Chloride 1,000 mls @ 75 mls/hr 06/20/19 23:15 06/23/19 05:10 Nacl 0.9% 1000 Ml IV 75 mls/hr DIRECT BRITTANI Administration Insulin Human Lispro 0 unit 06/22/19 07:30 06/22/19 22:00 Humalog SUB-Q Not Given ACHS [facility] Protocol Latanoprost 1 drops 06/21/19 22:00 06/22/19 21:46 Latanoprost 0.005% OU 1 drops QHS BRITTANI Administration Levofloxacin 750 mg 06/23/19 10:00 Levaquin PO Q48HR BRITTANI Magnesium Hydroxide 30 ml 06/20/19 23:09 Milk Of Magnesia PO Q4H PRN Constipation Methylprednisolone Sodium Succinate 60 mg 06/20/19 23:45 06/23/19 05:09 Solu-Medrol IV 60 mg Q8HR [facility] Administration Metoclopramide HCl 10 mg 06/20/19 23:09 Reglan IV Q6H PRN Nausea And Vomiting Ondansetron HCl 4 mg 06/21/19 11:48 Zofran IV Q8H PRN Nausea And Vomiting Oxycodone/Acetaminophen 1 tab 06/20/19 23:09 Percocet 5/325 PO Q6H PRN Pain, Moderate (4-6) Pravastatin Sodium 20 mg 06/21/19 10:00 06/22/19 09:16 Pravachol PO 20 mg DAILY BRITTANI Administration Sodium Chloride 10 ml 06/20/19 23:09 Sodium Chloride Flush Syringe 10 Ml IV PRN PRN LINE FLUSH Sodium Chloride 10 ml 06/21/19 22:00 06/22/19 21:46 Sodium Chloride Flush Syringe 10 Ml IV 10 ml BID BRITTANI Administration
[2019-06-23] MEDS: FAMOTIDINE 20 MG TAB PO SCH (09:40)
[2019-06-23] MEDS: glipiZIDE 5 MG TAB PO SCH (09:41)
[2019-06-23] MEDS ORDERED: levoFLOXacin 750 MG TAB PO SCH (10:00)
[2019-06-23] MEDS: amLODIPine 10 MG TAB PO SCH (10:00)
[2019-06-23] MEDS: INSULIN LISPRO 100 UNIT/ML SUB-Q SCH ×3 (10:01→17:24)
[2019-06-23] MEDS: PRAVASTATIN 20 MG TAB PO SCH (10:07)
[2019-06-23] MEDS ORDERED: hydrALAZINE 20 MG/1 ML INJ IV NR (11:00)
--- NOTE | 2019-06-23 12:38 | Progress Note ---
Assessment and Plan Acute respiratory failure. Possible obstructive lung disease (New-onset asthma vs COPD) Obesity. Mild metabolic acidosis. H/O diabetes. - ordered prn antitussives - gentle hydration re: lactic acidosis - continue to wean supplemental oxygen to keep O2 sats > 90% - continue Bronchodilators (STEW & LABA) with pulm hygiene per RT - continue systemic steroids with slow taper - continue inhaled corticosteroids - continue to avoid nephrotoxins, renally dose all medications - continue mobility protocols to prevent pressure ulcers - PT/OT as tolerated - Wound care per RN/WCT - continue accuchecks with glycemic control per SSI for target blood glucose < 180 mg/dL - Smoking cessation strongly counseled at the bedside - home oxygen evaluation at discharge - GI & VTE prophylaxis - Flu & pneumovax per protocol - Pulmonary out patient follow up for PFTs and optimization of respiratory status - continue other care per attending / other consultants - prn analgesia per pain score ... re-evaluate in am & prn Subjective Date of service: 06/23/19 Principal diagnosis: Ac resp failure; New-onset asthma vs COPD; Obesity; lactic acidosis; DM II Interval history: Patient is seen today for: Acute respiratory failure; Possible obstructive lung disease (New-onset asthma vs COPD); Obesity; Mild metabolic acidosis; H/O diabetes. Seen and examined at bedside; 24hour events reviewed; nursing and respiratory care staff consulted; no adverse overnight events reported to me; resting peacefully in bed; Objective Vital Signs - 12hr 06/23/19 06/23/19 06/23/19 02:15 02:17 02:20 Temperature 98.7 F Pulse Rate 79 Pulse Rate [ Anterior Bilateral] Respiratory Rate Respiratory Rate [Anterior Bilateral] Blood Pressure 173/88 152/63 O2 Sat by Pulse 95 Oximetry 06/23/19 06/23/19 07:40 10:00 Temperature 98.9 F Pulse Rate 64 61 Pulse Rate [ 64 Anterior Bilateral] Respiratory 20 Rate Respiratory 20 Rate [Anterior Bilateral] Blood Pressure 200/83 138/69 O2 Sat by Pulse 93 Oximetry Constitutional: no acute distress, alert, other (elderly looking obese AAF, normocephalic with mil;dly increased resp effort at rest) Eyes: non-icteric ENT: oropharynx moist Neck: supple, no lymphadenopathy, no JVD Effort: mildly labored Ascultation: Bilateral: diminished breath sounds, rhonchi (scant in base) Percussion: Bilateral: not dull Cardiovascular: regular rate and rhythm Gastrointestinal: normoactive bowel sounds, soft, non-tender, non-distended Integumentary: normal Extremities: no cyanosis, no edema, pulses normal, no ischemia or petechiae Neurologic: normal mental status, non-focal exam (grossly), pupils equal and round, CN II-XII normal, motor strength normal and Psychiatric: mood appropriate, affect normal CBC and BMP: 06/21/19 05:26 06/21/19 05:26 ABG, PT/INR, D-dimer: ABG ABG pH 7.399 pH Units (7.350-7.450) 06/21/19 21: ABG pCO2 35.5 mm Hg 06/21/19 21: ABG pO2 74.4 mm Hg (80.0-90.0) L 06/21/19 21: ABG O2 Saturation 95.7 % (95.0-99.0) 06/21/19 21: Abnormal lab findings: Abnormal Labs 06/20/19 06/20/19 06/20/19 11:05 11:05 11:05 RDW 16.2 H Lymph % (Auto) Eos % (Auto) 5.9 H Lymph # [place] # 1.1 H Seg Neutrophils % Monocytes % (Manual) 20.0 H Eosinophils % (Manual) 5.0 H Monocytes # (Manual) 1.4 H ABG pO2 ABG Base Excess Oxyhemoglobin Sodium Carbon Dioxide 20 L Glucose 142 H POC Glucose Hemoglobin A1c 6.9 H Lactic Acid Albumin 06/21/19 06/21/19 06/21/19 05:26 05:26 08:01 RDW 16.5 H Lymph % (Auto) 11.6 L Eos % (Auto) Lymph # 0.9 L [place] # Seg Neutrophils % 82.0 H Monocytes % (Manual) Eosinophils % (Manual) Monocytes # (Manual) ABG pO2 ABG Base Excess Oxyhemoglobin Sodium 134 L Carbon Dioxide 20 L Glucose 192 H POC Glucose 202 H Hemoglobin A1c Lactic Acid Albumin 3.8 L 06/21/19 06/21/19 06/21/19 11:35 16:54 19:42 RDW Lymph % (Auto) Eos % (Auto) Lymph # [place] # Seg Neutrophils % Monocytes % (Manual) Eosinophils % (Manual) Monocytes # (Manual) ABG pO2 ABG Base Excess Oxyhemoglobin Sodium Carbon Dioxide Glucose POC Glucose 219 H 126 H Hemoglobin A1c Lactic Acid 2.60 H* Albumin 06/21/19 06/21/19 06/21/19 21:22 22:16 23:19 RDW Lymph % (Auto) Eos % (Auto) Lymph # [place] # Seg Neutrophils % Monocytes % (Manual) Eosinophils % (Manual) Monocytes # (Manual) ABG pO2 74.4 L ABG Base Excess -2.7 L Oxyhemoglobin 93.8 L Sodium Carbon Dioxide Glucose POC Glucose 307 H Hemoglobin A1c Lactic Acid 3.20 H* Albumin 06/22/19 06/22/19 06/22/19 07:43 11:40 16:54 RDW Lymph % (Auto) Eos % (Auto) Lymph # [place] # Seg Neutrophils % Monocytes % (Manual) Eosinophils % (Manual) Monocytes # (Manual) ABG pO2 ABG Base Excess Oxyhemoglobin Sodium Carbon Dioxide Glucose POC Glucose 158 H 135 H 149 H Hemoglobin A1c Lactic Acid Albumin 06/22/19 06/23/19 21:50 07:52 RDW Lymph % (Auto) Eos % (Auto) Lymph # [place] # Seg Neutrophils % Monocytes % (Manual) Eosinophils % (Manual) Monocytes # (Manual) ABG pO2 ABG Base Excess Oxyhemoglobin Sodium Carbon Dioxide Glucose POC Glucose 231 H 180 H Hemoglobin A1c Lactic Acid Albumin
[2019-06-23] MEDS ORDERED: hydrALAZINE 25 MG TAB PO SCH (14:00)
[2019-06-23] MEDS ORDERED: hydrALAZINE 20 MG/1 ML INJ IV PRN (14:00)
[2019-06-23 14:16] VITALS: BP 147/79
[2019-06-23] MEDS ORDERED: HYDROcodone/HOMATROPINE 5-1.5MG /5 ML ORAL LIQD UNIT DOSE PO PRN (14:53)
--- NOTE | 2019-06-23 16:11 | Discharge Summary ---
Providers - Providers Date of Admission: 06/23/19 09:29 Date of discharge: 06/23/19 Attending physician: AKOSUA HANNON 06/20/19 23:09 Consult to Physician [CONS] Routine Comment: called answ. serv. machuca Consulting Provider: CRISTIANA HERNANDEZ Physician Instructions: Reason For Exam: Obstructive airway disease Primary care physician: DEVONTE MORRISON Hospitalization Condition: Stable Hospital course: --Hypertensive urgency; blood pressure more than 200 systolic Add hydralazine 25 mg 3 times a day, IV hydralazine 20 mg 1 dose now Closely monitor blood pressures and adjust as needed --Acute bronchitis-failed outpatient treatment Continue IV antibiotics and IV steroids Continue neb treatments with DuoNeb solution Possible discharge tomorrow if there is further improvement --Type 2 diabetes Continue insulin sliding scale coverage and oral hypoglycemics --Hypertension uncontrolled Continue present medications --Hyperlipidemia Continue statin --Hyponatremia Mild-no need for hyponatremia work-up Repeat serum electrolytes in a.m. Disposition: DC- TO HOME OR SELFCARE Time spent for discharge: 32 min Core Measure Documentation - Palliative Care Palliative Care/ Comfort Measures: Not Applicable - Core Measures Any of the following diagnoses?: none Exam - Constitutional Vitals: Temp Pulse Resp BP Pulse Ox 98.0 F 77 18 147/79 97 06/23/19 13:53 06/23/19 14:27 06/23/19 14:00 06/23/19 14:27 06/23/19 13:53 General appearance: Present: no acute distress, well-nourished, obese - EENT Eyes: Present: PERRL, EOM intact - Neck Neck: Present: supple, normal ROM - Respiratory Respiratory effort: normal Respiratory: bilateral: diminished, negative: rales, rhonchi, wheezing - Cardiovascular Rhythm: regular Heart Sounds: Present: S1 & S2 - Extremities Extremities: no ischemia, No edema - Abdominal General gastrointestinal: Present: soft, non-tender, non-distended, normal bowel sounds - Integumentary Integumentary: Present: clear, warm - Musculoskeletal Musculoskeletal: strength equal bilaterally - Psychiatric Psychiatric: appropriate mood/affect, cooperative - Neurologic Neurologic: CNII-XII intact, moves all extremities Plan Activity: advance as tolerated, fall precautions Diet: diabetic Additional Instructions: Advised to see primary commercial mortgage broker[lung doctor] in 1 week Follow up with: TAMELA COVINGTONWILLIS MD BRYCE [Referring] - 3-5 Days Prescriptions: levoFLOXacin [Levaquin TAB] 500 mg PO QDAY #7 tablet Prednisone [predniSONE 10 mg (6-Day Pack, 21 Tabs)] 10 mg PO .TAPER #1 tab.ds.pk Albuterol INH(or & Nicu Only) [ProAir HFA Inhaler] 2 puff IH QID PRN #8.5 gram PRN Reason: Shortness Of Breath guaiFENesin/DEXTROMETHORPHAN [Robitussin Cough-Chest Dm Liq] 10 ml PO QID PRN #1 bottle PRN Reason: Cough
== END 2019-06-23 17:40 | disposition home or self-care (01) ==
LOC: ED 10:15 → 2B-ACE 15:37 → INTOOBSV 06-23 09:29 → OBSVTOIN 06-23 09:29
PROVIDERS: ADMIT Internal Medicine; ATTEND Internal Medicine
DX: J96.00 Acute respiratory failure, unspecified whether with hypoxia or hypercapnia (principal); J20.9 Acute bronchitis, unspecified; E87.2 Acidosis; I16.0 Hypertensive urgency; E11.9 Type 2 diabetes mellitus without complications; E66.9 Obesity, unspecified; E87.1 Hypo-osmolality and hyponatremia; E78.5 Hyperlipidemia, unspecified; Z53.9 Procedure and treatment not carried out, unspecified reason; Z68.36 Body mass index [BMI] 36.0-36.9, adult
CPT/HCPCS: 36415; 36600; 71046; 80048; 80053; 82140; 82803; 82962; 83036; 83880; 84484; 85007; 85025; 93005; 93010; 93306; 94640; 94644; 96365; 96367; 96372; 96375; 96376; 99285; A9270; G0378; J1650; J1940; J1956; J2930; J3475; J7030; 96374; J1815

== ENCOUNTER 2021-01-17 14:48 | Inpatient (IN) | payer MEDICARE ==
--- NOTE | 2021-01-17 15:51 | Event Note ---
ED Screening Note Date of service: 01/17/21 Time: 15:47 ED Screening Note: 85-year-old -[place]yp[place] female presents to the emergency room for 1 week history of shortness of breath. Patient states that she has seen her provider and was given a inhaler. She does admit that she is vaccinated. Has a past medical history of diabetes and high blood pressure but does not know her medications. She denies any fever chills no nausea no vomiting no chest pain. This initial assessment/diagnostic orders/clinical plan/treatment(s) is/are subject to change based on patients health status, clinical progression and re- assessment by fellow clinical providers in the ED. Further treatment and workup at subsequent clinical providers discretion. Patient/guardian urged not to elope from the ED as their condition may be serious if not clinically assessed and managed. Initial orders include: CBC CMP EKG troponin chest x-ray and
[2021-01-17] MEDS ORDERED: IPRATROPIUM/ALBUTEROL SULFATE 3 ML AMPUL.NEB IH ONE (16:29)
[2021-01-17] MEDS ORDERED: ASPIRIN 81 MG TAB CHEW PO ONE (16:29)
--- NOTE | 2021-01-17 16:31 | XRay Report ---
CHEST 2 VIEWS INDICATION / CLINICAL INFORMATION: sob,cough and rales. COMPARISON: 06/20/2019 FINDINGS: SUPPORT DEVICES: None. HEART / MEDIASTINUM: No significant abnormality. LUNGS / PLEURA: Mild interstitial prominence most pronounced in the lung bases. Mild peribronchial th ickening. Bilateral blunting of the costophrenic angles may represent trace pleural effusions versus atelectasis. No focal lung consolidation. ADDITIONAL FINDINGS: No significant additional findings. IMPRESSION: 1. Mild interstitial prominence and peribronchial thickening in the lung bases is nonspecific but can be seen with bronchiolitis and/or pulmonary edema. 2. Blunting of the bilateral costophrenic angles may represent small pleural effusions versus atelect asis. Signer Name: Felix Salamanca MD Signed: 01/17/2021 4:27 PM Workstation Name: [id number]
--- NOTE | 2021-01-17 16:32 | Emergency Department Report ---
ED Shortness of Breath HPI - General Chief Complaint: Dyspnea/Respdistress Stated Complaint: SHORT OF BREATH Time Seen by Provider: 01/17/21 16:20 Source: patient Mode of arrival: Ambulatory Limitations: No Limitations - History of Present Illness Initial Comments: Patient presents with a 2 to 3-day history of exertional shortness of breath. She states she just does not feel well. Symptoms have actually been going on longer, but she states that they have worsened over the last couple of days. She been seen previously and told that this was her bronchitis acting up. Her doctor treated her but never did any testing. She is here today because she is not getting any better. There has been a dry cough. She states that she feels short of breath with exertion. While she is sitting and resting she also feels dyspneic, but it is magnified by exertion. She does not describe to orthopnea or PND. She has had no fevers or chills. There has been no known coronavirus exposure. She is vaccinated. She has not noticed worsening pedal edema. - Related Data Home Medications Medication Instructions Recorded Confirmed Last Taken Loratadine 10 mg DAILY 06/20/19 06/20/19 06/20/19 08:00 Lumigan 0.01% 1 drop OU HS 06/20/19 06/20/19 06/19/19 21:00 Pravastatin [Pravachol] 20 mg PO DAILY 06/20/19 06/20/19 06/20/19 08:00 amLODIPine 10 mg PO DAILY 06/20/19 06/20/19 06/20/19 08:00 glipiZIDE [Glucotrol] 5 mg PO DAILY 06/20/19 06/20/19 06/20/19 08:00 Previous Rx's Medication Instructions Recorded Last Taken Type Prednisone [predniSONE 10 mg 10 mg PO .TAPER #1 tab.ds.pk 06/23/19 Unknown Rx (6-Day Pack, 21 Tabs)] guaiFENesin/DEXTROMETHORPHAN 10 ml PO QID PRN #1 bottle 06/23/19 Unknown Rx [Robitussin Cough-Chest Dm Liq] levoFLOXacin [Levaquin TAB] 500 mg PO QDAY #7 tablet 06/23/19 Unknown Rx Albuterol Mdi (or & Nicu Only) 2 puff IH QID PRN #8.5 gram 01/17/21 Unknown Rx [ProAir HFA Inhaler] Allergies Allergy/AdvReac Type Severity Reaction Status Date / Time No Known Allergies Allergy Verified 06/20/19 10:21 ED Review of Systems ROS: Stated complaint: SHORT OF BREATH Other details as noted in HPI Comment: All other systems reviewed and negative Constitutional: denies: fever Eyes: denies: vision change ENT: denies: throat pain Respiratory: see HPI Cardiovascular: chest pain Endocrine: denies: unexplained weight loss Gastrointestinal: denies: abdominal pain Genitourinary: denies: dysuria Musculoskeletal: denies: back pain Skin: denies: rash Neurological: denies: headache Hematological/Lymphatic: denies: easy bruising ED Past Medical Hx - Past Medical History Hx Hypertension: Yes Hx Diabetes: Yes - Family History Family history: hypertension - Social History Smoking Status: Never Smoker - Medications Home Medications: Home Medications Medication Instructions Recorded Confirmed Last Taken Type Loratadine 10 mg DAILY 06/20/19 06/20/19 06/20/19 08:00 History Lumigan 0.01% 1 drop OU HS 06/20/19 06/20/19 06/19/19 21:00 History Pravastatin [Pravachol] 20 mg PO DAILY 06/20/19 06/20/19 06/20/19 08:00 History amLODIPine 10 mg PO DAILY 06/20/19 06/20/19 06/20/19 08:00 History glipiZIDE [Glucotrol] 5 mg PO DAILY 06/20/19 06/20/19 06/20/19 08:00 History Prednisone [predniSONE 10 mg 10 mg PO .TAPER #1 tab.ds.pk 06/23/19 Unknown Rx (6-Day Pack, 21 Tabs)] guaiFENesin/DEXTROMETHORPHAN 10 ml PO QID PRN #1 bottle 06/23/19 Unknown Rx [Robitussin Cough-Chest Dm Liq] levoFLOXacin [Levaquin TAB] 500 mg PO QDAY #7 tablet 06/23/19 Unknown Rx Albuterol Mdi (or & Nicu Only) 2 puff IH QID PRN #8.5 gram 01/17/21 Unknown Rx [ProAir HFA Inhaler] ED Physical Exam - General Limitations: No Limitations, Other ( Pulse ox is noted and normal. She is not hypoxic) General appearance: alert, in distress ( mild), obese - Head Head exam: Present: atraumatic, normocephalic, normal inspection - Eye Eye exam: Present: normal appearance, EOMI. Absent: scleral icterus - ENT ENT exam: Present: normal exam, normal orophraynx, normal external ear exam - Neck Neck exam: Present: normal inspection. Absent: meningismus - Respiratory Respiratory exam: Present: normal lung sounds bilaterally. Absent: respiratory distress - Cardiovascular Cardiovascular Exam: Present: regular rate, normal rhythm - GI/Abdominal GI/Abdominal exam: Present: soft. Absent: distended, tenderness - Extremities Exam Extremities exam: Present: normal capillary refill. Absent: pedal edema - Back Exam Back exam: Absent: CVA tenderness (R), CVA tenderness (L) - Neurological Exam Neurological exam: Present: alert, oriented X3, CN II-XII intact, normal gait. Absent: motor sensory deficit - Psychiatric Psychiatric exam: Present: normal affect, normal mood - Skin Skin exam: Present: warm, dry ED Course Vital Signs 01/17/21 01/17/21 01/17/21 15:49 15:53 16:57 Temperature 98.0 F 98.9 F 98.4 F Pulse Rate 79 77 70 Respiratory 16 16 18 Rate Blood Pressure 152/70 Blood Pressure 163/66 175/65 [Right] O2 Sat by Pulse 97 95 100 Oximetry - Reevaluation(s) Reevaluation #1: 01/17/21 16:31 IV and labs have been ordered. EKG was noted. Reevaluation #2: 01/17/21 19:34 Labs have been reviewed. At this time, patient does not have evidence of STEMI or NSTEMI. ED Medical Decision Making - Lab Data Result diagrams: 01/17/21 15:51 - EKG Data -: EKG Interpreted by Me - EKG Data 01/17/21 16:31 EKG shows a normal sinus rhythm at 78. Intervals demonstrate a right bundle branch block with a QRS of 151. QT corrected is normal at 192. MD is on the cusp of prolonged at 220. Patient has no ST elevation to suggest STEMI. There is no concordance suggestive of STEMI. There does not appear to be any change from old EKG. Critical Care Time: No Critical care attestation.: If time is entered above; I have spent that time in minutes in the direct care of this critically ill patient, excluding procedure time. ED Disposition Clinical Impression: Short of breath on exertion Disposition: 01 HOME / SELF CARE / HOMELESS Is pt being admited?: No Condition: Stable Instructions: Shortness of Breath, Adult Additional Instructions: Drink plenty of water. Return for problems. Follow-up with your regular doctor. Continue home medication. Follow-up with your appeals representative. Prescriptions: Albuterol Mdi (or & Nicu Only) [ProAir HFA Inhaler] 2 puff IH QID PRN #8.5 gram PRN Reason: Shortness Of Breath Referrals: PRIMARY CARE,MD [Referring] - 3-5 Days
[2021-01-17 16:34] LABS: Alanine Aminotransferase 6 units/L (7-56); Albumin 3.4 g/dL (3.9-5); BUN/Creatinine Ratio 9; Blood Urea Nitrogen 7 mg/dL (7-17); Calcium 8.9 mg/dL (8.4-10.2); Hemolysis Index 4
[2021-01-17 19:47] LABS: Hematocrit 22.9 % (30.3-42.9); Mean Corpuscular Volume 71 fl (79-97); Red Blood Count 3.22 M/mm3 (3.65-5.03)
[2021-01-17 19:48] LABS: Mean Corpuscular HGB Conc 31 % (30-34); Platelet Count 40.6 K/mm3 (140-440); Red Cell Distribution Width 20.5 % (13.2-15.2)
--- NOTE | 2021-01-17 20:17 | Emergency Department Report ---
ED General Adult HPI - General Chief complaint: Dyspnea/Respdistress Stated complaint: SHORT OF BREATH PUI?: No Time Seen by Provider: 01/17/21 16:20 Source: patient, old records reviewed Mode of arrival: Ambulatory Limitations: No Limitations, Physical Limitation - History of Present Illness Initial comments: The patient was evaluated in the emergency department for symptoms described in the history of present illness. He/she was evaluated in the context of the global COVID-19 pandemic, which necessitated consideration that the patient might be at risk for infection with the virus that causes COVID-19. Institutional protocols and algorithms that pertain to the evaluation of patients at risk for COVID-19 are in a state of rapid change based on information released by regulatory bodies including the CDC and federal and state organizations. These policies and algorithms were followed during the patient's care in the emergency department. Please note that these policies, procedures and recommendations changed on a rapid basis. This patient is an 85-year-old female. Her past medical history includes obstructive air disease, [id number] diabetes, hypertension, bronchitis and hyperlipidemia. She is COVID-19 vaccinated. She was seen by my colleague earlier on today, with a complaint of shortness of breath on exertion. The patient was set up for discharge, and became very symptomatic, and desaturated to 85%. The patient was brought to my attention. I went to evaluate the patient. The patient tells me that she is having shortness of breath. She denies physical pain. The patient denies hematemesis and bright red blood per rectum. She denies travel, surgery, DVT and pulmonary embolism risk factors. She denies hematemesis and bright red blood per rectum. To the best of her recollection, she has not had a colonoscopy or an endoscopy. Shortness of breath worsens with physical exertion. It decreases with rest. She is COVID-19 vaccinated, and denies loss of taste and smell. -: Gradual, days(s) Severity scale (0 -10): 2 Consistency: constant Improves with: rest Worsens with: movement - Related Data Home Medications Medication Instructions Recorded Confirmed Last Taken Loratadine 10 mg DAILY 06/20/19 06/20/19 06/20/19 08:00 Lumigan 0.01% 1 drop OU HS 06/20/19 06/20/19 06/19/19 21:00 Pravastatin [Pravachol] 20 mg PO DAILY 06/20/19 06/20/19 06/20/19 08:00 amLODIPine 10 mg PO DAILY 06/20/19 06/20/19 06/20/19 08:00 glipiZIDE [Glucotrol] 5 mg PO DAILY 06/20/19 06/20/19 06/20/19 08:00 Previous Rx's Medication Instructions Recorded Last Taken Type Prednisone [predniSONE 10 mg 10 mg PO .TAPER #1 tab.ds.pk 06/23/19 Unknown Rx (6-Day Pack, 21 Tabs)] guaiFENesin/DEXTROMETHORPHAN 10 ml PO QID PRN #1 bottle 06/23/19 Unknown Rx [Robitussin Cough-Chest Dm Liq] levoFLOXacin [Levaquin TAB] 500 mg PO QDAY #7 tablet 06/23/19 Unknown Rx Albuterol Mdi (or & Nicu Only) 2 puff IH QID PRN #8.5 gram 01/17/21 Unknown Rx [ProAir HFA Inhaler] Ferrous Sulfate [Ferrous Sulfate 324 mg PO DAILY #30 tablet.dr 01/17/21 Unknown Rx 324 MG] Allergies Allergy/AdvReac Type Severity Reaction Status Date / Time No Known Allergies Allergy Verified 06/20/19 10:21 ED Review of Systems ROS: Stated complaint: SHORT OF BREATH Other details as noted in HPI Constitutional: malaise, weakness. denies: fever Eyes: denies: eye discharge ENT: denies: epistaxis Respiratory: shortness of breath Cardiovascular: denies: chest pain Gastrointestinal: denies: abdominal pain, nausea, vomiting, hematemesis, melena, hematochezia Neurological: weakness Hematological/Lymphatic: denies: easy bleeding ED Past Medical Hx - Past Medical History Hx Hypertension: Yes Hx Diabetes: Yes - Social History Smoking Status: Never Smoker - Medications Home Medications: Home Medications Medication Instructions Recorded Confirmed Last Taken Type Loratadine 10 mg DAILY 06/20/19 06/20/19 06/20/19 08:00 History Lumigan 0.01% 1 drop OU HS 06/20/19 06/20/19 06/19/19 21:00 History Pravastatin [Pravachol] 20 mg PO DAILY 06/20/19 06/20/19 06/20/19 08:00 History amLODIPine 10 mg PO DAILY 0306/20/19 06/20/19 08:00 History glipiZIDE [Glucotrol] 5 mg PO DAILY 06/20/19 06/20/19 06/20/19 08:00 History Prednisone [predniSONE 10 mg 10 mg PO .TAPER #1 tab.ds.pk 06/23/19 Unknown Rx (6-Day Pack, 21 Tabs)] guaiFENesin/DEXTROMETHORPHAN 10 ml PO QID PRN #1 bottle 06/23/19 Unknown Rx [Robitussin Cough-Chest Dm Liq] levoFLOXacin [Levaquin TAB] 500 mg PO QDAY #7 tablet 06/23/19 Unknown Rx Albuterol Mdi (or & Nicu Only) 2 puff IH QID PRN #8.5 gram 01/17/21 Unknown Rx [ProAir HFA Inhaler] Ferrous Sulfate [Ferrous Sulfate 324 mg PO DAILY #30 tablet. 01/17/21 Unknown Rx 324 MG] ED Physical Exam - General Limitations: Physical Limitation General appearance: alert, anxious - Head Head exam: Present: atraumatic, normocephalic - Eye Eye exam: Present: normal appearance, EOMI. Absent: nystagmus - ENT ENT exam: Present: normal exam, normal orophraynx, mucous membranes moist, normal external ear exam - Neck Neck exam: Present: normal inspection, full ROM. Absent: tenderness, meningismus - Respiratory Respiratory exam: Present: normal lung sounds bilaterally, respiratory distress, accessory muscle use. Absent: decreased breath sounds - Cardiovascular Cardiovascular Exam: Present: regular rate, normal rhythm, normal heart sounds. Absent: bradycardia, tachycardia, irregular rhythm, systolic murmur, diastolic murmur, rubs, gallop - GI/Abdominal GI/Abdominal exam: Present: soft. Absent: distended, tenderness, guarding, rebound, rigid, pulsatile mass - Rectal Rectal exam: Present: normal inspection, normal rectal tone, heme (+) stool, other (Chaperoned by sales engineer Macho Antoine). Absent: heme (-) stool - Extremities Exam Extremities exam: Present: normal inspection, full ROM, other (2+ pulses noted in the bilateral upper and lower extremities. There is no palpable cord. negative Homans sign. Muscular compartments are soft. The pelvis is stable.). Absent: pedal edema, calf tenderness - Back Exam Back exam: Present: normal inspection, full ROM. Absent: tenderness, CVA tenderness (R), CVA tenderness (L), paraspinal tenderness, vertebral tenderness - Neurological Exam Neurological exam: Present: alert, oriented X3, normal gait, other (No facial droop. Tongue midline. Extraocular movements intact bilaterally. Facial sensation intact to light touch in V1, V2, V3 distribution bilaterally. 5 and a 5 strength in 4 extremities. Sensation intact to light touch in 4 extremities.). Absent: motor sensory deficit - Psychiatric Psychiatric exam: Present: anxious - Skin Skin exam: Present: warm, dry, intact, normal color. Absent: rash ED Course Vital Signs 01/17/21 01/17/21 01/17/21 15:49 15:53 16:57 Temperature 98.0 F 98.9 F 98.4 F Pulse Rate 79 77 70 Respiratory 16 16 18 Rate Blood Pressure 152/70 Blood Pressure 163/66 175/65 [Right] O2 Sat by Pulse 97 95 100 Oximetry - Reevaluation(s) Reevaluation #1: 01/17/21 21:31 Differential diagnosis, including but not limited to: Anemia, GI bleed, thrombocytopenia, myelodysplastic syndrome, occult malignancy, CHF, COPD Assessment and plan: 85-year-old female with a known history of reactive airways disease. She presents today with a complaint of acute onset shortness of breath over the past few days. Hemoglobin and hematocrit, as well as platelet count are dramatically decreased when compared to prior values. She has brown stool that is strongly guaiac positive in my rectal examination. Lung sounds are clear, she denies travel, surgery, immobilization, DVT and pulmonary embol ism risk factors. Do not appreciate crackles or rales, therefore, I think CHF is less likely. Elevated proBNP is likely secondary to underlying COPD. Patient is agreeable to packed red blood cell transfusion. She has not had a colonoscopy or an endoscopy in the past that she can recall. Contacted GI on-call, Dr. Franklin Paz. Discussed the patient's history, physical, laboratory studies and clinical impression. GI will follow in consultation. Hematology is not available for ER consultation, but inpatient team has access to remote/tele-hematology consultation during normal business hours. Have therefore placed hematology consultation in the computer, and will defer to inpatient team to follow this up. Patient meets criteria for admission and hospitalization, secondary to symptomatic microcytic anemia, evidence of GI bleed, and O2 desaturation to 85% with trial of ambulation. Patient is agreeable to admission hospitalization. The patient is agreeable to packed red blood cell transfusion. Hospital physician, Dr. Wen Alcazar to admit to [facility] ED Medical Decision Making - Lab Data Result diagrams: 01/17/21 15:51 01/17/21 15:51 Vital Signs 01/17/21 01/17/21 01/17/21 15:49 15:53 16:57 Temperature 98.0 F 98.9 F 98.4 F Pulse Rate 79 77 70 Respiratory 16 16 18 Rate Blood Pressure 152/70 Blood Pressure 163/66 175/65 [Right] O2 Sat by Pulse 97 95 100 Oximetry Lab Results 01/17/21 01/17/21 01/17/21 Range/Units 15:51 15:51 20:40 WBC 10.4 (4.5-11.0) K/mm3 RBC 3.22 L (3.65-5.03) M/mm3 Hgb 7.0 L (10.1-14.3) gm/dl Hct 22.9 L (30.3-42.9) % MCV 71 L (79-97) fl MCH 22 L (28-32) pg MCHC 31 (30-34) % RDW 20.5 H (13.2-15.2) % Plt Count 40.6 L (140-440) K/mm3 Lymph % (Auto) Condenser Tester Graves % (Auto) Condenser Tester Eos % (Auto) Condenser Tester Baso % (Auto) Condenser Tester Lymph # (Auto) Condenser Tester Graves # (Auto) Condenser Tester Eos # (Auto) Condenser Tester Baso # (Auto) Condenser Tester Seg Neutrophils % Condenser Tester Seg Neutrophils # Condenser Tester PT (12.2-14.9) Sec. INR (0.87-1.13) APTT (24.2-36.6) Sec. Sodium 140 (137-145) mmol/L Potassium 4.0 (3.6-5.0) mmol/L Chloride 106.7 (98-107) mmol/L Carbon Dioxide 19 L (22-30) mmol/L Anion Gap 18 mmol/L BUN 7 (7-17) mg/dL Creatinine 0.8 (0.6-1.2) mg/dL Estimated GFR > 60 ml/min BUN/Creatinine Ratio 9 % Glucose 123 H (65-100) mg/dL Calcium 8.9 (8.4-10.2) mg/dL Magnesium (1.7-2.3) mg/dL Total Bilirubin 0.20 (0.1-1.2) mg/dL AST 13 (5-40) units/L ALT 6 L (7-56) units/L Alkaline Phosphatase 79 (35-129) units/L Total Creatine Kinase (30-135) units/L Troponin T < 0.010 (0.00-0.029) ng/mL NT-Pro-B Natriuret Pep (0-900) pg/mL Total Protein 7.0 (6.3-8.2) g/dL Albumin 3.4 L (3.9-5) g/dL Albumin/Globulin Ratio 0.9 % Blood Type A POSITIVE Crossmatch See Detail 01/17/21 01/17/21 Range/Units 20:43 20:43 WBC (4.5-11.0) K/mm3 RBC (3.65-5.03) M/mm3 Hgb (10.1-14.3) gm/dl Hct (30.3-42.9) % MCV (79-97) fl MCH (28-32) pg MCHC (30-34) % RDW (13.2-15.2) % Plt Count (140-440) K/mm3 Lymph % (Auto) Graves % (Auto) Eos % (Auto) Baso % (Auto) Lymph # (Auto) Graves # (Auto) Eos # (Auto) Baso # (Auto) Seg Neutrophils % Seg Neutrophils # PT 14.9 (12.2-14.9) Sec. INR 1.11 (0.87-1.13) APTT 32.5 (24.2-36.6) Sec. Sodium (137-145) mmol/L Potassium (3.6-5.0) mmol/L Chloride (98-107) mmol/L Carbon Dioxide (22-30) mmol/L Anion Gap mmol/L BUN (7-17) mg/dL Creatinine (0.6-1.2) mg/dL Estimated GFR ml/min BUN/Creatinine Ratio % Glucose (65-100) mg/dL Calcium (8.4-10.2) mg/dL Magnesium 2.20 (1.7-2.3) mg/dL Total Bilirubin (0.1-1.2) mg/dL AST (5-40) units/L ALT (7-56) units/L Alkaline Phosphatase (35-129) units/L Total Creatine Kinase 43 (30-135) units/L Troponin T (0.00-0.029) ng/mL NT-Pro-B Natriuret Pep 2631 H (0-900) pg/mL Total Protein (6.3-8.2) g/dL Albumin (3.9-5) g/dL Albumin/Globulin Ratio % Blood Type Crossmatch - EKG Data -: EKG Interpreted by Ri - EKG Data 01/17/21 21:29 EKG today is interpreted at 16: 18 This is a sinus rhythm, with a rate of 78 bpm. Left axis deviation, left anterior fascicular block, right bundle branch block, left ventricular hypertrophy, abnormal EKG, not a STEMI. Unchanged from prior EKG from 06/20/2019 There is a first-degree AV block. - Radiology Data Radiology results: pending, report reviewed, image reviewed CHEST 2 VIEWS INDICATION / CLINICAL INFORMATION: sob,cough and rales. COMPARISON: 06/20/2019 FINDINGS: SUPPORT DEVICES: None. HEART / MEDIASTINUM: No significant abnormality. LUNGS / PLEURA: Mild interstitial prominence most p ronounced in the lung bases. Mild peribronchial thickening. Bilateral blunting of the costophrenic angles may represent trace pleural effusions versus atelectasis. No focal lung consolidation. ADDITIONAL FINDINGS: No significant additional findings. IMPRESSION: 1. Mild interstitial prominence and peribronchial thickening in the lung bases is nonspecific but can be seen with bronchiolitis and/or pulmonary edema. 2. Blunting of the bilateral costophrenic angles may represent small pleural effusions versus atelectasis. Signer Name: Felix Salamanca MD Signed: 01/17/2021 3:27 PM Workstation Name: [email or web address] Critical Care Time: Yes Critical care time in (mins) excluding proc time.: 35 Critical care attestation.: If time is entered above; I have spent that time in minutes in the direct care of this critically ill patient, excluding procedure time. ED Disposition Clinical Impression: Microcytic anemia, Thrombocytopenia, Short of breath on exertion, Guaiac positive stools Disposition: ADMITTED INPATIENT Is pt being admited?: Yes Does the pt Need Aspirin: No Condition: Fair Instructions: Shortness of Breath, Adult Additional Instructions: Drink plenty of water. Return for problems. Follow-up with your regular doctor. Continue home medication. Follow-up with your chef teacher. Prescriptions: Ferrous Sulfate [Ferrous Sulfate 324 MG] 324 mg PO DAILY #30 tablet.dr Jacksonuteralis Pinedai (or & Nicu Only) [ProAir HFA Inhaler] 2 puff IH QID PRN #8.5 gram PRN Reason: Shortness Of Breath Referrals: PRIMARY CARE, [Referring] - 3-5 Days
[2021-01-17] MEDS ORDERED: PANTOPRAZOLE 40 MG INJ IV ONE (20:39)
[2021-01-17] MEDS ORDERED: SODIUM CHLORIDE 0.9% 500 ML 500 ML IV ONE (20:39)
[2021-01-17 21:23] LABS: INR 1.11 (0.87-1.13)
[2021-01-17 21:24] LABS: Partial Thromboplastin Time 32.5 Sec. (24.2-36.6)
[2021-01-17] MEDS ORDERED: MAGNESIUM HYDROXIDE (MOM) ORAL LIQD UDC PO PRN (23:05)
[2021-01-17] MEDS ORDERED: MORPHINE 4 MG/1 ML INJ IV PRN (23:05)
[2021-01-17] MEDS ORDERED: ACETAMINOPHEN 325 MG TAB PO PRN (23:05)
[2021-01-17] MEDS ORDERED: MORPHINE 2 MG/1 ML INJ IV PRN (23:05)
[2021-01-17] MEDS ORDERED: DEXTROSE 50% IN WATER (25GM) 50 ML SYRINGE IV PRN (23:05)
[2021-01-17] MEDS ORDERED: ONDANSETRON 4 MG/2 ML INJ IV PRN (23:05)
--- NOTE | 2021-01-17 23:21 | History and Physical Report ---
History of Present Illness Date of examination: 01/17/21 Date of admission: 01/17/21 21:34 Chief complaint: Shortness of Breath History of present illness: 85-year-old female with known history of hypertension and diabetes mellitus presenting in the emergency room today complaining of shortness of breath. Shortness of breath has been ongoing for the past few days. She was seen by her primary care physician and was signed informed that she might be having bronc hitis. Patient states she has not been feeling better and has had some dry cough. She denies any fever or chills, no nausea vomiting, no headache or dizziness and no diaphoresis. Shortness of breath has been worse on exertion. She denies any diarrhea, no bright red blood per rectum and no melena. She has had some minimal swelling of her lower extremities. Patient denies any sick contacts and no recent travel. Denies any contact with anyone with COVID-19. She has been fully vaccinated against COVID-19. Work-up in the emergency room today reveals hemoglobin of 7.0, platelet count of 40.6, BNP of 2631. Stool Hemoccult was positive. Past History Past Medical History: diabetes, hypertension, hyperlipidemia Past Surgical History: No surgical history Social history: no significant social history Family history: no significant family history Medications and Allergies Allergies Allergy/AdvReac Type Severity Reaction Status Date / Time No Known Allergies Allergy Verified 06/20/19 10:21 Home Medications Medication Instructions Recorded Confirmed Last Taken Type Loratadine 10 mg DAILY 06/20/19 06/20/19 06/20/19 08:00 History Lumigan 0.01% 1 drop OU HS 06/20/19 06/20/19 06/19/19 21:00 History Pravastatin [Pravachol] 20 mg PO DAILY 06/20/19 06/20/19 06/20/19 08:00 History amLODIPine 10 mg PO DAILY 06/20/19 06/20/19 06/20/19 08:00 History glipiZIDE [Glucotrol] 5 mg PO DAILY 06/20/19 06/20/19 06/20/19 08:00 History Prednisone [predniSONE 10 mg 10 mg PO .TAPER #1 tab.ds.pk 06/23/19 Unknown Rx (6-Day Pack, 21 Tabs)] guaiFENesin/DEXTROMETHORPHAN 10 ml PO QID PRN #1 bottle 06/23/19 Unknown Rx [Robitussin Cough-Chest Dm Liq] levoFLOXacin [Levaquin TAB] 500 mg PO QDAY #7 tablet 06/23/19 Unknown Rx Albuterol Mdi (or & Nicu Only) 2 puff IH QID PRN #8.5 gram 01/17/21 Unknown Rx [ProAir HFA Inhaler] Ferrous Sulfate [Ferrous Sulfate 324 mg PO DAILY #30 tablet. 01/17/21 Unknown Rx 324 MG] Active Meds: Active Medications Acetaminophen (Acetaminophen 325 Mg Tab) 650 mg PO Q4H PRN PRN Reason: Pain MILD(1-3)/Fever >100.5/JIMENES Dextrose (Dextrose 50% In Water (25gm) 50 Ml Syringe) 50 ml IV Q30MIN PRN; Protocol PRN Reason: Hypoglycemia Furosemide (Furosemide 20 Mg/2 Ml Inj) 40 mg IV BID@0600,1800 [facility] Insulin Human Lispro (Insulin Lispro 100 Unit/Ml) 0 unit SUB-Q ACHS BRITTANI; Protocol Magnesium Hydroxide (Magnesium Hydroxide (Mom) Oral Liqd Udc) 30 ml PO Q4H PRN PRN Reason: Constipation Morphine Sulfate (Morphine 2 Mg/1 Ml Inj) 2 mg IV Q4H PRN PRN Reason: Pain, Moderate (4-6) Morphine Sulfate (Morphine 4 Mg/1 Ml Inj) 4 mg IV Q4H PRN PRN Reason: Pain , Severe (7-10) Ondansetron HCl (Ondansetron 4 Mg/2 Ml Inj) 4 mg IV Q8H PRN PRN Reason: Nausea And Vomiting Sodium Chloride (Sodium Chloride 0.9% 10 Ml Flush Syringe) 10 ml IV BID BRITTANI Sodium Chloride (Sodium Chloride 0.9% 10 Ml Flush Syringe) 10 ml IV PRN PRN PRN Reason: LINE FLUSH Review of Systems Constitutional: no fever, no chills Ears, nose, mouth and throat: no nasal congestion, no sore throat Cardiovascular: no chest pain, no palpitations Respiratory: cough, shortness of breath Gastrointestinal: no abdominal pain, no nausea, no vomiting, no diarrhea Genitourinary Female: no pelvic pain, no flank pain, no dysuria, no hematuria Musculoskeletal: no neck pain, no low back pain Integumentary: no rash, no pruritis Neurological: no headaches, no confusion Psychiatric: no anxiety, no depression Endocrine: no polyphagia, no polydipsia, no polyuria, no nocturia Exam - Constitutional Vitals: Temp Pulse Resp BP Pulse Ox 98.4 F 70 18 152/70 100 01/17/21 16:57 01/17/21 16:57 01/17/21 16:57 01/17/21 16:57 01/17/21 16:57 General appearance: Present: no acute distress, well-nourished, other (Moderate pallor) - EENT Eyes: Present: PERRL, EOM intact. Absent: scleral icterus ENT: hearing intact, clear oral mucosa, dentition normal - Neck Neck: Present: supple, normal ROM - Respiratory Respiratory effort: normal Respiratory: bilateral: rales (Few rales in lung bases.) - Cardiovascular Rhythm: regular Heart Sounds: Present: S1 & S2. Absent: gallop, systolic murmur, diastolic murmur, rub, click - Extremities Extremities: no ischemia, pulses intact, pulses symmetrical, normal temperature, normal color, Full ROM Extremity abnormal: edema (Trace bilateral ankle edema) Peripheral Pulses: within normal limits - Abdominal General gastrointestinal: Present: soft, non-tender, non-distended, normal bowel sounds. Absent: mass - Integumentary Integumentary: Present: clear, warm, dry, normal turgor. Absent: rash - Musculoskeletal Musculoskeletal: strength equal bilaterally - Psychiatric Psychiatric: appropriate mood/affect, intact judgment & insight, memory intact, cooperative - Neurologic Neurologic: CNII-XII intact, no focal deficits, moves all extremities HEART Score - HEART Score Troponin: Troponin T < 0.010 ng/mL (0.00-0.029) 01/17/21 15:51 Results - Labs CBC & Chem 7: 01/17/21 15:51 01/17/21 15:51 Labs: Abnormal lab results 01/17/21 01/17/21 01/17/21 Range/Units 15:51 15:51 20:40 RBC 3.22 L (3.65-5.03) M/mm3 Hgb 7.0 L (10.1-14.3) gm/dl Hct 22.9 L (30.3-42.9) % MCV 71 L (79-97) fl MCH 22 L (28-32) pg RDW 20.5 H (13.2-15.2) % Plt Count 40.6 L (140-440) K/mm3 Carbon Dioxide 19 L (22-30) mmol/L Glucose 123 H (65-100) mg/dL ALT 6 L (7-56) units/L NT-Pro-B Natriuret Pep (0-900) pg/mL Albumin 3.4 L (3.9-5) g/dL Crossmatch See Detail 01/17/21 Range/Units 20:43 RBC (3.65-5.03) M/mm3 Hgb (10.1-14.3) gm/dl Hct (30.3-42.9) % MCV (79-97) fl MCH (28-32) pg RDW (13.2-15.2) % Plt Count (140-440) K/mm3 Carbon Dioxide (22-30) mmol/L Glucose (65-100) mg/dL ALT (7-56) units/L NT-Pro-B Natriuret Pep 2631 H (0-900) pg/mL Albumin (3.9-5) g/dL Crossmatch Assessment and Plan - Patient Problems (1) GI bleed Current Visit: Yes Status: Acute Plan to address problem: Patient has been scheduled for blood transfusion. Consult placed to clinical audiologist for evaluation. She has also been placed on proton pump inhibitor. (2) Microcytic anemia Current Visit: Yes Status: Acute Plan to address problem: Possibly secondary to GI loss. Will monitor CBC. (3) Thrombocytopenia Current Visit: Yes Status: Acute Plan to address problem: We will continue to monitor CBC. We will await evaluation and recommendations from heme-onc (4) CHF (congestive heart failure) Current Visit: Yes Status: Acute Plan to address problem: We will place patient on diuretics and monitor inputs and outputs. We will schedule for echocardiogram. We will also request evaluation by cardiology. (5) DVT prophylaxis Current Visit: No Status: Acute Plan to address problem: Patient placed on sequential compression device. (6) Full code status Current Visit: Yes Status: Acute Plan to address problem: Patient is full code.
[2021-01-17] MEDS ORDERED: ALBUTEROL 2.5 MG/3 ML NEBU IH PRN (23:27)
[2021-01-18] MEDS ORDERED: SODIUM CHLORIDE 0.9% 500 ML 500 ML ONE (04:25)
[2021-01-18] MEDS ORDERED: FUROSEMIDE 20 MG/2 ML INJ IV SCH (06:00)
[2021-01-18] MEDS: FUROSEMIDE 40 MG/4 ML INJ IV SCH ×2 (06:10→17:52)
[2021-01-18] MEDS: INSULIN LISPRO 100 UNIT/ML SUB-Q SCH ×4 (08:10→22:03)
[2021-01-18 08:46] LABS: Basophils # (Auto) 0.1 K/mm3 (0.0-0.1); Basophils % (Auto) 1.1 % (0.0-1.8); Eosinophils # (Auto) 0.2 K/mm3 (0.0-0.4); Eosinophils % (Auto) 2.4 % (0.0-4.3); Hematocrit 31.9 % (30.3-42.9); Lymphocytes # (Auto) 0.7 K/mm3 (1.2-5.4); Lymphocytes % (Auto) 7.2 % (13.4-35.0); Mean Corpuscular HGB Conc 31 % (30-34); Mean Corpuscular Volume 74 fl (79-97); Monocytes # (Auto) 0.7 K/mm3 (0.0-0.8); Monocytes % (Auto) 6.6 % (0.0-7.3); Platelet Count 447 K/mm3 (140-440); Red Blood Count 4.34 M/mm3 (3.65-5.03)
[2021-01-18 08:56] LABS: INR 1.11 (0.87-1.13)
--- NOTE | 2021-01-18 08:56 | Hem/Onc Consultation ---
History of Present Illness - Reason for Consult Consult date: 01/18/21 anemia, thrombocytopenia - History of Present Illness Heme consult note video unavailable --televisit via [employer] CPT: 51793 Dx: anemia This is an 85yo female who presents to the ED with shortness of breath Recently seen by PCP and was diagnosed with bronchitis Past medical history of hypertension and diabetes Noted to have minimal swelling of bilateral lower extremities Labs reveal hgb 7 yesterday Positive fecal occult blood As per nurse, patient with delayed mentation DATA REVIEWED BELOW WBC 10.4 Hgb 10 Hct 31.9 MCV 74 Plts 447 IMP: Presumed iron deficiency based on low MCV appears like chronic bleeding GI tract malignancy is a possibility REC/PLAN: 1 unit RBC transfused overnight Transfuse 1 unit PRBC whenever hematocrit<23 AM labs to include daily CBC, retic, ldh Consider GI evaluation while in the hospital, but doubt she is a candidate for antitumor therapy even if cancer were found Laboratory Last Values WBC 10.4 K/mm3 (4.5-11.0) 01/18/21 08:33 RBC 4.34 M/mm3 (3.65-5.03) 01/18/21 08:33 Hgb 10.0 gm/dl (10.1-14.3) L D 01/18/21 08:33 Hct 31.9 % (30.3-42.9) D 01/18/21 08:33 MCV 74 fl (79-97) L 01/18/21 08:33 MCH 23 pg (28-32) L 01/18/21 08:33 MCHC 31 % (30-34) 01/18/21 08:33 RDW 20.6 % (13.2-15.2) H 01/18/21 08:33 Plt Count 447 K/mm3 (140-440) H D 01/18/21 08:33 Lymph % (Auto) 7.2 % (13.4-35.0) L 01/18/21 08:33 [place] % (Auto) 6.6 % (0.0-7.3) 01/18/21 08:33 Eos % (Auto) 2.4 % (0.0-4.3) 01/18/21 08:33 Baso % (Auto) 1.1 % (0.0-1.8) 01/18/21 08:33 Lymph # (Auto) 0.7 K/mm3 (1.2-5.4) L 01/18/21 08:33 [place] # (Auto) 0.7 K/mm3 (0.0-0.8) 01/18/21 08:33 Eos # (Auto) 0.2 K/mm3 (0.0-0.4) 01/18/21 08:33 Baso # (Auto) 0.1 K/mm3 (0.0-0.1) 01/18/21 08:33 Seg Neutrophils % 82.7 % (40.0-70.0) H 01/18/21 08:33 Seg Neutrophils # 8.6 K/mm3 (1.8-7.7) H 01/18/21 08:33 PT 14.9 Sec. (12.2-14.9) 01/18/21 08:33 INR 1.11 (0.87-1.13) 01/18/21 08:33 APTT 32.5 Sec. (24.2-36.6) 01/17/21 20:43 Sodium 139 mmol/L (137-145) 01/18/21 08:33 Potassium 3.9 mmol/L (3.6-5.0) 01/18/21 08:33 Chloride 103.2 mmol/L (98-107) 01/18/21 08:33 Carbon Dioxide 19 mmol/L (22-30) L 01/18/21 08:33 Anion Gap 21 mmol/L 01/18/21 08:33 BUN 7 mg/dL (7-17) 01/18/21 08:33 Creatinine 0.7 mg/dL (0.6-1.2) 01/18/21 08:33 Estimated GFR > 60 ml/min 01/18/21 08:33 BUN/Creatinine Ratio 10 % 01/18/21 08:33 Glucose 132 mg/dL (65-100) H 01/18/21 08:33 POC Glucose 133 mg/dL (70-105) H 01/18/21 08:58 Calcium 9.0 mg/dL (8.4-10.2) 01/18/21 08:33 Magnesium 2.20 mg/dL (1.7-2.3) 01/17/21 20:43 Total Bilirubin 0.20 mg/dL (0.1-1.2) 01/17/21 15:51 AST 13 units/L (5-40) 01/17/21 15:51 ALT 6 units/L (7-56) L 01/17/21 15:51 Alkaline Phosphatase 79 units/L (35-129) 01/17/21 15:51 Total Creatine Kinase 43 units/L (30-135) 01/17/21 20:43 Troponin T < 0.010 ng/mL (0.00-0.029) 01/17/21 15:51 NT-Pro-B Natriuret Pep 2631 pg/mL (0-900) H 01/17/21 20:43 Total Protein 7.0 g/dL (6.3-8.2) 01/17/21 15:51 Albumin 3.4 g/dL (3.9-5) L 01/17/21 15:51 Albumin/Globulin Ratio 0.9 % 01/17/21 15:51 Blood Type A POSITIVE 01/17/21 20:40 Antibody Screen Negative 01/17/21 20:40 Crossmatch See Detail 01/17/21 20:40 Past History Past Medical History: diabetes, hypertension, hyperlipidemia Past Surgical History: No surgical history Social history: no significant social history Family history: no significant family history Medications and Allergies Allergies Allergy/AdvReac Type Severity Reaction Status Date / Time No Known Allergies Allergy Verified 01/18/21 08:25 Home Medications Medication Instructions Recorded Confirmed Last Taken Type Loratadine 10 mg DAILY 06/20/19 06/20/19 06/20/19 08:00 History Lumigan 0.01% 1 drop OU HS 06/20/19 06/20/19 06/19/19 21:00 History Pravastatin [Pravachol] 20 mg PO DAILY 06/20/19 06/20/19 06/20/19 08:00 History amLODIPine 10 mg PO DAILY 06/20/19 06/20/19 06/20/19 08:00 History glipiZIDE [Glucotrol] 5 mg PO DAILY 06/20/19 06/20/19 06/20/19 08:00 History Prednisone [predniSONE 10 mg 10 mg PO .TAPER #1 tab.ds.pk 06/23/19 Unknown Rx (6-Day Pack, 21 Tabs)] guaiFENesin/DEXTROMETHORPHAN 10 ml PO QID PRN #1 bottle 06/23/19 Unknown Rx [Robitussin Cough-Chest Dm Liq] levoFLOXacin [Levaquin TAB] 500 mg PO QDAY #7 tablet 06/23/19 Unknown Rx Albuterol Mdi (or & Nicu Only) 2 puff IH QID PRN #8.5 gram 01/17/21 Unknown Rx [ProAir HFA Inhaler] Ferrous Sulfate [Ferrous Sulfate 324 mg PO DAILY #30 tablet.dr 01/17/21 Unknown Rx 324 MG] Active Meds: Active Medications Acetaminophen (Acetaminophen 325 Mg Tab) 650 mg PO Q4H PRN PRN Reason: Pain MILD(1-3)/Fever >100.5/JIMENES Albuterol (Albuterol 2.5 Mg/3 Ml Nebu) 2.5 mg IH Q4HRT PRN PRN Reason: Shortness Of Breath Dextrose (Dextrose 50% In Water (25gm) 50 Ml Syringe) 50 ml IV Q30MIN PRN; Protocol PRN Reason: Hypoglycemia Furosemide (Furosemide 40 Mg/4 Ml Inj) 40 mg IV BID@0600,1800 BR[facility]ANI Last Admin: 01/18/21 06:10 Dose: 40 mg Documented by: Insulin Human Lispro (Insulin Lispro 100 Unit/Ml) 0 unit SUB-Q ACHS BRITTANI; Protocol Magnesium Hydroxide (Magnesium Hydroxide (Mom) Oral Liqd Udc) 30 ml PO Q4H PRN PRN Reason: Constipation Morphine Sulfate (Morphine 2 Mg/1 Ml Inj) 2 mg IV Q4H PRN PRN Reason: Pain, Moderate (4-6) Morphine Sulfate (Morphine 4 Mg/1 Ml Inj) 4 mg IV Q4H PRN PRN Reason: Pain , Severe (7-10) Ondansetron HCl (Ondansetron 4 Mg/2 Ml Inj) 4 mg IV Q8H PRN PRN Reason: Nausea And Vomiting Pantoprazole Sodium (Pantoprazole 40 Mg Inj) 40 mg IV BID [facility] Sodium Chloride (Sodium Chloride 0.9% 10 Ml Flush Syringe) 10 ml IV BID [facility] Sodium Chloride (Sodium Chloride 0.9% 10 Ml Flush Syringe) 10 ml IV PRN PRN PRN Reason: LINE FLUSH Exam - Constitutional Vitals: Last Vital Signs Temp 97.8 F 01/18/21 06:05 Pulse 73 01/18/21 07:01 Resp 18 01/18/21 07:01 BP 149/62 01/18/21 07:01 Pulse Ox 98 01/18/21 07:01 Results - Labs lab Results: Laboratory Results - last 24 hr 01/17/21 01/17/21 01/17/21 15:51 15:51 20:40 WBC 10.4 RBC 3.22 L Hgb 7.0 L Hct 22.9 L MCV 71 L MCH 22 L MCHC 31 RDW 20.5 H Plt Count 40.6 L Lymph % (Auto) [employer] Cleaner [place] % (Auto) Silverware Cleaner Eos % (Auto) Silverware Cleaner Baso % (Auto) [employer]ware Cleaner Lymph # (Auto) Silverware Cleaner [place] # (Auto) Silverware Cleaner Eos # (Auto) Silverware Cleaner Baso # (Auto) Silverware Cleaner Seg Neutrophils % Silverware Cleaner Seg Neutrophils # Silverware Cleaner PT INR APTT Sodium 140 Potassium 4.0 Chloride 106.7 Carbon Dioxide 19 L Anion Gap 18 BUN 7 Creatinine 0.8 Estimated GFR > 60 BUN/Creatinine Ratio 9 Glucose 123 H Calcium 8.9 Magnesium Total Bilirubin 0.20 AST 13 ALT 6 L Alkaline Phosphatase 79 Total Creatine Kinase Troponin T < 0.010 NT-Pro-B Natriuret Pep Total Protein 7.0 Albumin 3.4 L Albumin/Globulin Ratio 0.9 Blood Type A POSITIVE Antibody Screen Negative Crossmatch See Detail 01/17/21 01/17/21 01/18/21 20:43 20:43 08:33 WBC RBC Hgb Hct MCV MCH MCHC RDW Plt Count Lymph % (Auto) [place] % (Auto) 6.6 Eos % (Auto) 2.4 Baso % (Auto) Lymph # (Auto) [place] # (Auto) 0.7 Eos # (Auto) 0.2 Baso # (Auto) 0.1 Seg Neutrophils % 82.7 H Seg Neutrophils # 8.6 H PT 14.9 INR 1.11 APTT 32.5 Sodium Potassium Chloride Carbon Dioxide Anion Gap BUN Creatinine Estimated GFR BUN/Creatinine Ratio Glucose Calcium Magnesium 2.20 Total Bilirubin AST ALT Alkaline Phosphatase Total Creatine Kinase 43 Troponin T NT-Pro-B Natriuret Pep 2631 H Total Protein Albumin Albumin/Globulin Ratio Blood Type Antibody Screen Crossmatch
[2021-01-18 08:58] LABS: Red Cell Distribution Width 20.6 % (13.2-15.2)
[2021-01-18 09:02] LABS: Blood Urea Nitrogen 7 mg/dL (7-17); Hemolysis Index 33
[2021-01-18 09:04] LABS: BUN/Creatinine Ratio 10
--- NOTE | 2021-01-18 10:37 | Electrocardiograph Report ---
[facility] Test Date: 2021-01-17 Test Time: 16:18:20 Pat Name: DAISY HARLEY Department: Room: [place] [address] Gender: F [employer] Supervisor: CHRISTY : [id number] Requested By: JEN OWEN Order Number: [id number] Reading MD: Craig Zacarias Measurements Intervals [place] Rate: 78 P: 57 GA: 220 QRS: -61 QRSD: 151 T: 64 QT: 432 QTc: 492 Interpretive Statements Sinus rhythm Borderline prolonged GA interval RBBB and LAFB Probable left ventricular hypertrophy No previous ECG available for comparison Electronically Signed On 01-18-2021 10:37:06 EDT by Craig Zacarias
[2021-01-18] MEDS: PANTOPRAZOLE 40 MG INJ IV SCH ×2 (11:32→23:00)
[2021-01-18] MEDS ORDERED: ALBUTEROL 8.5 GM MDI INHALATION IH PRN (12:00)
--- NOTE | 2021-01-18 12:02 | Progress Note ---
Assessment and Plan Assessment and plan: GI bleed Microcytic anemia Thrombocytopenia Acute mild diastolic heart failure exacerbation DVT prophylaxis 01/18/2021. Continue heart failure protocol, GDMT and await cardiology consultation. Patient with echocardiogram in June 2019 that revealed diastolic heart failure. Follow-up echocardiogram this admission. Await GI consultation for GI bleed. Hemoglobin has improved to 10.0 after 1 unit PRBCs. Continue to follow H&H History Interval history: No new issues overnight Hospitalist Physical - Constitutional Vitals: Temp Pulse Resp BP Pulse Ox 98.2 F 160 H 21 150/78 96 01/18/21 10:54 01/18/21 11:01 01/18/21 10:54 01/18/21 11:01 01/18/21 10:54 General appearance: Present: no acute distress, well-nourished, other (Moderate pallor) - EENT Eyes: Present: PERRL, EOM intact ENT: hearing intact, clear oral mucosa, dentition normal - Neck Neck: Present: supple, normal ROM - Respiratory Respiratory effort: normal Respiratory: bilateral: CTA - Cardiovascular Rhythm: regular Heart Sounds: Present: S1 & S2. Absent: gallop, rub - Extremities Extremities: no ischemia, No edema, Full ROM - Abdominal General gastrointestinal: soft, non-tender, non-distended, normal bowel sounds - Integumentary Integumentary: Present: clear, warm, dry - Neurologic Neurologic: CNII-XII intact, moves all extremities HEART Score - HEART Score Troponin: Troponin T < 0.010 ng/mL (0.00-0.029) 01/17/21 15:51 Results - Labs CBC & Chem 7: 01/18/21 08:33 01/18/21 08:33 Labs: Laboratory Last Values WBC 10.4 K/mm3 (4.5-11.0) 01/18/21 08:33 RBC 4.34 M/mm3 (3.65-5.03) 01/18/21 08:33 Hgb 10.0 gm/dl (10.1-14.3) L D 01/18/21 08:33 Hct 31.9 % (30.3-42.9) D 01/18/21 08:33 MCV 74 fl (79-97) L 01/18/21 08:33 MCH 23 pg (28-32) L 01/18/21 08:33 MCHC 31 % (30-34) 01/18/21 08:33 RDW 20.6 % (13.2-15.2) H 01/18/21 08:33 Plt Count 447 K/mm3 (140-440) H D 01/18/21 08:33 Lymph % (Auto) 7.2 % (13.4-35.0) L 01/18/21 08:33 [place] % (Auto) 6.6 % (0.0-7.3) 01/18/21 08:33 Eos % (Auto) 2.4 % (0.0-4.3) 01/18/21 08:33 Baso % (Auto) 1.1 % (0.0-1.8) 01/18/21 08:33 Lymph # (Auto) 0.7 K/mm3 (1.2-5.4) L 01/18/21 08:33 [place] # (Auto) 0.7 K/mm3 (0.0-0.8) 01/18/21 08:33 Eos # (Auto) 0.2 K/mm3 (0.0-0.4) 01/18/21 08:33 Baso # (Auto) 0.1 K/mm3 (0.0-0.1) 01/18/21 08:33 Seg Neutrophils % 82.7 % (40.0-70.0) H 01/18/21 08:33 Seg Neutrophils # 8.6 K/mm3 (1.8-7.7) H 01/18/21 08:33 PT 14.9 Sec. (12.2-14.9) 01/18/21 08:33 INR 1.11 (0.87-1.13) 01/18/21 08:33 APTT 32.5 Sec. (24.2-36.6) 01/17/21 20:43 Sodium 139 mmol/L (137-145) 01/18/21 08:33 Potassium 3.9 mmol/L (3.6-5.0) 01/18/21 08:33 Chloride 103.2 mmol/L (98-107) 01/18/21 08:33 Carbon Dioxide 19 mmol/L (22-30) L 01/18/21 08:33 Anion Gap 21 mmol/L 01/18/21 08:33 BUN 7 mg/dL (7-17) 01/18/21 08:33 Creatinine 0.7 mg/dL (0.6-1.2) 01/18/21 08:33 Estimated GFR > 60 ml/min 01/18/21 08:33 BUN/Creatinine Ratio 10 % 01/18/21 08:33 Glucose 132 mg/dL (65-100) H 01/18/21 08:33 POC Glucose 123 mg/dL (70-105) H 01/18/21 11:42 Calcium 9.0 mg/dL (8.4-10.2) 01/18/21 08:33 Magnesium 2.20 mg/dL (1.7-2.3) 01/17/21 20:43 Total Bilirubin 0.20 mg/dL (0.1-1.2) 01/17/21 15:51 AST 13 units/L (5-40) 01/17/21 15:51 ALT 6 units/L (7-56) L 01/17/21 15:51 Alkaline Phosphatase 79 units/L (35-129) 01/17/21 15:51 Total Creatine Kinase 43 units/L (30-135) 01/17/21 20:43 Troponin T < 0.010 ng/mL (0.00-0.029) 01/17/21 15:51 NT-Pro-B Natriuret Pep 2631 pg/mL (0-900) H 01/17/21 20:43 Total Protein 7.0 g/dL (6.3-8.2) 01/17/21 15:51 Albumin 3.4 g/dL (3.9-5) L 01/17/21 15:51 Albumin/Globulin Ratio 0.9 % 01/17/21 15:51 Blood Type A POSITIVE 01/17/21 20:40 Antibody Screen Negative 01/17/21 20:40 Crossmatch See Detail 01/17/21 20:40 Active Medications - Current Medications Current Medications: Generic Name Dose Route Start Last Admin Trade Name Freq PRN Reason Stop Dose Admin Acetaminophen 650 mg 01/17/21 23:05 Acetaminophen 325 Mg Tab PO Q4H PRN Pain MILD(1-3)/Fever >100.5/JIMENES Albuterol 2.5 mg 01/17/21 23:27 Albuterol 2.5 Mg/3 Ml Nebu IH Q4HRT PRN Shortness Of Breath Dextrose 50 ml 01/17/21 23:05 Dextrose 50% In Water (25gm) 50 Ml Syringe IV Q30MIN PRN Hypoglycemia Protocol Furosemide 40 mg 01/18/21 06:00 01/18/21 06:10 Furosemide 40 Mg/4 Ml Inj IV 40 mg BID@0600,1800 BRITTANI Administration Insulin Human Lispro 0 unit 01/18/21 07:30 01/18/21 11:53 Insulin Lispro 100 Unit/Ml SUB-Q Not Given ACHS [facility] Protocol Magnesium Hydroxide 30 ml 01/17/21 23:05 Magnesium Hydroxide (Mom) Oral Liqd Udc PO Q4H PRN Constipation Morphine Sulfate 2 mg 01/17/21 23:05 Morphine 2 Mg/1 Ml Inj IV Q4H PRN Pain, Moderate (4-6) Morphine Sulfate 4 mg 01/17/21 23:05 Morphine 4 Mg/1 Ml Inj IV Q4H PRN Pain , Severe (7-10) Ondansetron HCl 4 mg 01/17/21 23:05 Ondansetron 4 Mg/2 Ml Inj IV Q8H PRN Nausea And Vomiting Pantoprazole Sodium 40 mg 01/18/21 10:00 01/18/21 11:32 Pantoprazole 40 Mg Inj IV 40 mg BID BRITTANI Administration Sodium Chloride 10 ml 01/18/21 10:00 01/18/21 11:55 Sodium Chloride 0.9% 10 Ml Flush Syringe IV 10 ml BID BRITTANI Administration Sodium Chloride 10 ml 01/17/21 23:05 Sodium Chloride 0.9% 10 Ml Flush Syringe IV PRN PRN LINE FLUSH
--- NOTE | 2021-01-18 14:40 | Consultation ---
History of Present Illness Consult date: 01/18/21 Requesting physician: FRACISCO DURAN Consult reason: congestive heart failure History of present illness: Patient is an 85 y/o female with a PMHx of HTN and DM who presented to the ED with a complaint of SOB x 1 week. Patient reports that in the last week she has been SOB, weakness, and noticed LAKE. She states normally she can walk more than 1 block without any SOB but over the last week she can only walk a few feet. She state she saw her PCP who told it she might have bronchitis and was given medication(she did not know what). She reports no improvement. She denies orthopnea, chest pain, PND, or lightheadedness. Of note patient found to be anemic with Hgb of 7 and had positive fecal occult blood. Patient received a1 unit of blood. At time of interview patient reports breathing better after transfusion. The patient is previously unknown to our practice. Cardiology is consulted for new CHF. Past History Past Medical History: diabetes, hypertension, hyperlipidemia Past Surgical History: No surgical history Social history: no significant social history Family history: no significant family history Medications and Allergies Allergies Allergy/AdvReac Type Severity Reaction Status Date / Time No Known Allergies Allergy Verified 01/18/21 08:25 Home Medications Medication Instructions Recorded Confirmed Last Taken Type Lumigan 0.01% 1 drop OU HS 06/20/19 01/18/21 06/19/19 21:00 History glipiZIDE [Glucotrol] 5 mg PO DAILY 06/20/19 01/18/21 06/20/19 08:00 History Albuterol Mdi (or & Nicu Only) 2 puff IH QID PRN 01/18/21 01/18/21 Unknown History [ProAir HFA Inhaler] Chlorpheniramine/Phenyleph/Dm 1 tsp PO HS 01/18/21 01/18/21 Unknown History [Rycontuss Liquid] Combigan 0.2%-0.5% Eye Drops 1 drop OU BID 01/18/21 01/18/21 Unknown History Dorzolamide 2% Eye Drop 1 drop OU BID 01/18/21 01/18/21 Unknown History Om3/Dha/Epa/Cod Liver Oil/A/D3 1 each PO QDAY 01/18/21 01/18/21 Unknown History [Cod Liver Oil Softgel] amLODIPine [Norvasc] 5 mg PO DAILY 01/18/21 01/18/21 Unknown History Active Meds: Active Medications Acetaminophen (Acetaminophen 325 Mg Tab) 650 mg PO Q4H PRN PRN Reason: Pain MILD(1-3)/Fever >100.5/JIMENES Albuterol (Albuterol 2.5 Mg/3 Ml Nebu) 2.5 mg IH Q4HRT PRN PRN Reason: Shortness Of Breath Amlodipine Besylate (Amlodipine 5 Mg Tab) 5 mg PO DAILY [facility] Brimonidine/Timolol ([facility] 1 drops OU Q12HR [facility] Dextrose (Dextrose 50% In Water (25gm) 50 Ml Syringe) 50 ml IV Q30MIN PRN; Protocol PRN Reason: Hypoglycemia Furosemide (Furosemide 40 Mg/4 Ml Inj) 40 mg IV BID@0600,1800 [facility] Last Admin: 01/18/21 06:10 Dose: 40 mg Documented by: Glipizide (Glipizide 5 Mg Tab) 5 mg PO QDDIAB [facility] Insulin Human Lispro (Insulin Lispro 100 Unit/Ml) 0 unit SUB-Q ACHS [facility]; Protocol Last Admin: 01/18/21 11:53 Dose: Not Given Documented by: Magnesium Hydroxide (Magnesium Hydroxide (Mom) Oral Liqd Udc) 30 ml PO Q4H PRN PRN Reason: Constipation Miscellaneous Medication (Dorzolamide 2% Eye Drop) 1 drop OU BID BRITTANI Miscellaneous Medication (Lumigan 0.01%) 1 drop OU HS [facility] Morphine Sulfate (Morphine 2 Mg/1 Ml Inj) 2 mg IV Q4H PRN PRN Reason: Pain, Moderate (4-6) Morphine Sulfate (Morphine 4 Mg/1 Ml Inj) 4 mg IV Q4H PRN PRN Reason: Pain , Severe (7-10) Ondansetron HCl (Ondansetron 4 Mg/2 Ml Inj) 4 mg IV Q8H PRN PRN Reason: Nausea And Vomiting Pantoprazole Sodium (Pantoprazole 40 Mg Inj) 40 mg IV BID [facility] Last Admin: 01/18/21 11:32 Dose: 40 mg Documented by: Sodium Chloride (Sodium Chloride 0.9% 10 Ml Flush Syringe) 10 ml IV BID [facility] Last Admin: 01/18/21 11:55 Dose: 10 ml Documented by: Sodium Chloride (Sodium Chloride 0.9% 10 Ml Flush Syringe) 10 ml IV PRN PRN PRN Reason: LINE FLUSH Review of Systems All systems: negative Constitutional: weakness, no weight loss, no weight gain, no fever, no chills Ears, nose, mouth and throat: no decreased hearing, no nose pain, no nasal congestion, no nasal discharge Cardiovascular: shortness of breath, dyspnea on exertion, no chest pain, no orthopnea, no palpitations, no rapid/irregular heart beat, no paroxysmal nocturnal dyspnea Respiratory: shortness of breath, dyspnea on exertion, no cough, no cough with sputum, no excessive sputum, no hemoptysis Gastrointestinal: no abdominal pain, no nausea, no vomiting, no diarrhea, no melena Musculoskeletal: no neck stiffness, no neck pain, no shooting arm pain, no arm numbness/tingling, no shooting leg pain Integumentary: no rash, no pruritis, no redness, no sores Neurological: no head injury, no transient paralysis, no paralysis, no weakness Psychiatric: no anxiety, no memory loss Endocrine: no cold intolerance, no heat intolerance Hematologic/Lymphatic: no easy bruising, no easy bleeding Physical Examination Last Vital Signs Temp 98.2 F 01/18/21 10:54 Pulse 65 01/18/21 13:01 Resp 22 01/18/21 13:01 BP 201/78 01/18/21 13:01 Pulse Ox 99 01/18/21 13:01 General appearance: no acute distress HEENT: Positive: PERRL Neck: Positive: trachea midline Cardiac: Positive: Reg Rate and Rhythm Lungs: Positive: clear to auscultation, Normal Breath Sounds Neuro: Positive: Grossly Intact Abdomen: Positive: Soft, Active Bowel Sounds Skin: Negative: Rash, Suspicious Lesions, Ulceration Extremities: Present: upper extr. pulses, lower extr. pulses (trace), edema Results 01/18/21 08:33 01/18/21 08:33 Cardiac Enzymes 01/17/21 Range/Units 15:51 AST 13 (5-40) units/L Coagulation 01/17/21 01/18/21 Range/Units 20:43 08:33 PT 14.9 14.9 (12.2-14.9) Sec. INR 1.11 1.11 (0.87-1.13) APTT 32.5 (24.2-36.6) Sec. CBC 01/17/21 01/18/21 Range/Units 15:51 08:33 WBC 10.4 10.4 (4.5-11.0) K/mm3 RBC 3.22 L 4.34 (3.65-5.03) M/mm3 Hgb 7.0 L 10.0 L D (10.1-14.3) gm/dl Hct 22.9 L 31.9 D (30.3-42.9) % Plt Count 40.6 L 447 H D (140-440) K/mm3 Lymph # (Auto) [employer] 0.7 L [place] # (Auto) [employer] 0.7 Eos # (Auto) [employer] 0.2 Baso # (Auto) [employer] 0.1 Comprehensive Metabolic Panel 01/17/21 01/18/21 Range/Units 15:51 08:33 Sodium 140 139 (137-145) mmol/L Potassium 4.0 3.9 (3.6-5.0) mmol/L Chloride 106.7 103.2 (98-107) mmol/L Carbon Dioxide 19 L 19 L (22-30) mmol/L BUN 7 7 (7-17) mg/dL Creatinine 0.8 0.7 (0.6-1.2) mg/dL Glucose 123 H 132 H (65-100) mg/dL Calcium 8.9 9.0 (8.4-10.2) mg/dL AST 13 (5-40) units/L ALT 6 L (7-56) units/L Alkaline Phosphatase 79 (35-129) units/L Total Protein 7.0 (6.3-8.2) g/dL Albumin 3.4 L (3.9-5) g/dL - Imaging and Cardiology Echo: pending EKG: report reviewed, image reviewed EKG interpretations - Telemetry EKG Rhythm: Sinus Rhythm - EKG Sinus rhythms and dysrhythmias: sinus rhythm AV and intraventricular conduction: right bundle branch block Assessment and Plan 85-year-old female with known history of hypertension and diabetes mellitus presenting in the emergency room today complaining of shortness of breath. New Onset CHF? * EKG shows sinus 78 with RBB. No acute ischemic changes. Trops neg x1 * BNP noted to be elevated * Echo 06/21/2019-EF 55 to 60%, abnormal left ventricular diastolic dysfunction is observed, right ventricular systolic function is, left and right atrium are normal in size. * CXR shows bronchiolitis vs pulm edema with atelectasis vs small pleural eff usions HTN * As outpatient on: Amlodipine 5mg QD Anemia * Initial HgB 7->10 after patient received 1unit of blood. * Management per primary team Plan: Echo pending. Agree with Lasix 40mg IV BID. Agree with Amlodipine 5mg QD Patient seen in conjunction with Dr. Lopez who agrees with this plan of care. Will continue to follow. - Patient Problems (1) CHF (congestive heart failure) Current Visit: Yes Status: Acute (2) GI bleed Current Visit: Yes Status: Acute (3) Guaiac positive stools Current Visit: Yes Status: Acute (4) Microcytic anemia Current Visit: Yes Status: Acute (5) Short of breath on exertion Current Visit: Yes Status: Acute (6) Thrombocytopenia Current Visit: Yes Status: Acute (7) HTN (hypertension) Current Visit: No Status: Chronic Qualifiers: Hypertension type: essential hypertension Qualified Code(s): I10 - Essential (primary) hypertension (8) T2DM (type 2 diabetes mellitus) Current Visit: No Status: Chronic Qualifiers: Diabetes mellitus long term acute care registered nurse insulin use: unspecified senior living insulin use status
--- NOTE | 2021-01-18 15:26 | Event Note ---
Date: 01/18/21 Full GI consult dictated - anemia w/ initial low plt's with repeat 447, new onset chf - await repeat cbc (initially plts 40.6 then 447) - egd/colon when cleared by cardiology and other labs stable - will follow
[2021-01-18] MEDS ORDERED: DORZOLAMIDE 2% OU SCH (22:00)
[2021-01-18] MEDS ORDERED: COMBIGAN OU SCH (22:00)
[2021-01-18] MEDS ORDERED: LUMIGAN 0.01% OU SCH (22:00)
[2021-01-18] MEDS ORDERED: EYE OU SCH ×2 (22:00)
[2021-01-18] MEDS: COMBIGAN 0.2-0.5% OPHTH SOLN OU SCH (23:52)
[2021-01-18] MEDS: LATANOPROST 0.005% OPHTH SOLN 2.5 ML OU SCH (23:54)
--- NOTE | 2021-01-19 01:32 | Consultation ---
DATE OF CONSULTATION: 01/18/2021 REFERRING PHYSICIAN: Karri Phelan MD INDICATION: Anemia. HISTORY OF PRESENT ILLNESS: The patient is an 85-year-old black female with history of hypertension, diabetes, came into the Emergency Room complaining of shortness of breath. The patient reports this has been progressive over the last few days and was told that she had bronchitis. The patient reports shortness of breath with exertion. The patient denies any obvious signs of bleeding including bright red blood per rectum or melena. The patient subsequently came to the Emergency Room where she was noted to have heme positive stool. She was admitted and GI consulted. The patient reports she has never had a GI evaluation including colonoscopy in the past. PAST MEDICAL HISTORY: 1. Diabetes. 2. Hypertension. 3. High cholesterol. MEDICATIONS: Reviewed and updated in chart. ALLERGIES: No known drug allergies. SOCIAL HISTORY: Denies alcohol, tobacco or drug abuse. FAMILY HISTORY: Negative for colon cancer, IBD or liver disease. REVIEW OF SYSTEMS: GENERAL: Positive for weakness. HEENT: Denies visual complaints or tinnitus. PULMONARY: Denies shortness of breath. CARDIAC: Denies chest pain. GASTROINTESTINAL: Reports anemia. All points of 13-point review of system otherwise negative. PHYSICAL EXAMINATION: VITAL SIGNS: Temperature of 98.2, pulse 78, respirations 20, blood pressure 181/88. GENERAL: Fairly nourished female in no acute distress. HEENT: Pupils round and reactive. PULMONARY: Clear to auscultation bilaterally. CARDIOVASCULAR: Regular rate and rhythm. Normal S1, S2. ABDOMEN: Positive bowel sounds, soft. SKIN: No obvious rashes. LABORATORY DATA: Pertinent for white count of 10.4, hemoglobin and hematocrit of 7 and 22.9 with a platelet count of 40.6. Coags within normal limits. Chem-7 within normal limits. LFTs within normal limits. ASSESSMENT: An 85-year-old female who presents with progressive shortness of breath, now noted to be anemic and also thrombocytopenic with no obvious signs of GI blood loss. The patient reports she has never had a formal GI evaluation in the past. Management as noted below. PLAN: 1. Agree with both Cardiology and Hematology consultation. 2. Follow hematocrit and transfuse as needed. 3. When cleared by Cardiology and the patient's platelet counts are stable, we will probably proceed with EGD, colonoscopy. 4. We will follow. TID: [id number] RECEIPT: [id number] JERED/CIERRA/NOVA
[2021-01-19] MEDS: FUROSEMIDE 40 MG/4 ML INJ IV SCH (05:46)
[2021-01-19 06:13] LABS: Basophils % (Auto) 0.3 % (0.0-1.8); Eosinophils # (Auto) 0.2 K/mm3 (0.0-0.4); Eosinophils % (Auto) 1.5 % (0.0-4.3); Hematocrit 29.6 % (30.3-42.9); Hemoglobin 9.3 gm/dl (10.1-14.3); Lymphocytes # (Auto) 0.8 K/mm3 (1.2-5.4); Lymphocytes % (Auto) 6.7 % (13.4-35.0); Mean Corpuscular HGB Conc 31 % (30-34); Mean Corpuscular Volume 74 fl (79-97); Monocytes # (Auto) 1.2 K/mm3 (0.0-0.8); Monocytes % (Auto) 9.2 % (0.0-7.3); Platelet Count 426 K/mm3 (140-440); Red Blood Count 3.99 M/mm3 (3.65-5.03); Red Cell Distribution Width 21.4 % (13.2-15.2)
[2021-01-19 06:49] LABS: Blood Urea Nitrogen 10 mg/dL (7-17); Calcium 9.1 mg/dL (8.4-10.2); Hemolysis Index 1
[2021-01-19 06:56] LABS: BUN/Creatinine Ratio 14
[2021-01-19] MEDS: glipiZIDE 5 MG TAB PO SCH (08:00)
[2021-01-19] MEDS: INSULIN LISPRO 100 UNIT/ML SUB-Q SCH ×4 (08:42→22:27)
--- NOTE | 2021-01-19 09:46 | Progress Note ---
Assessment and Plan Assessment and plan: GI bleed Microcytic anemia Thrombocytopenia Acute mild diastolic heart failure exacerbation DVT prophylaxis 01/18/2021. Continue heart failure protocol, GDMT and await cardiology consultation. Patient with echocardiogram in June 2019 that revealed diastolic heart failure. Follow-up echocardiogram this admission. Await GI consultation for GI bleed. Hemoglobin has improved to 10.0 after 1 unit PRBCs. Continue to follow H&H 01/19/2021. Await cardiology recommendations for heart failure. Follow-up echocardiogram. GI to perform EGD/colonoscopy once cleared by cardiology. Hemoglobin remained stable at 9.3. Continue to follow H&H. History Interval history: No new issues overnight Hospitalist Physical - Constitutional Vitals: Temp Pulse Resp BP Pulse Ox 98.7 F 85 22 115/58 94 01/19/21 07:25 01/19/21 04:43 01/19/21 07:25 01/19/21 07:25 01/19/21 04:43 General appearance: Present: no acute distress - EENT Eyes: Present: PERRL, EOM intact ENT: hearing intact, clear oral mucosa, dentition normal - Neck Neck: Present: supple, normal ROM - Respiratory Respiratory effort: normal Respiratory: bilateral: CTA - Cardiovascular Rhythm: regular Heart Sounds: Present: S1 & S2. Absent: gallop, rub - Extremities Extremities: no ischemia, No edema, Full ROM - Abdominal General gastrointestinal: soft, non-tender, non-distended, normal bowel sounds - Integumentary Integumentary: Present: clear, warm, dry - Neurologic Neurologic: CNII-XII intact, moves all extremities HEART Score - HEART Score Troponin: Troponin T < 0.010 ng/mL (0.00-0.029) 01/17/21 15:51 Results - Labs CBC & Chem 7: 01/19/21 05:05 01/19/21 05:05 Labs: Laboratory Last Values WBC 12.6 K/mm3 (4.5-11.0) H 01/19/21 05:05 RBC 3.99 M/mm3 (3.65-5.03) 01/19/21 05:05 Hgb 9.3 gm/dl (10.1-14.3) L 01/19/21 05:05 Hct 29.6 % (30.3-42.9) L 01/19/21 05:05 MCV 74 fl (79-97) L 01/19/21 05:05 MCH 23 pg (28-32) L 01/19/21 05:05 MCHC 31 % (30-34) 01/19/21 05:05 RDW 21.4 % (13.2-15.2) H 01/19/21 05:05 Plt Count 426 K/mm3 (140-440) 01/19/21 05:05 Lymph % (Auto) 6.7 % (13.4-35.0) L 01/19/21 05:05 Mineral % (Auto) 9.2 % (0.0-7.3) H 01/19/21 05:05 Eos % (Auto) 1.5 % (0.0-4.3) 01/19/21 05:05 Baso % (Auto) 0.3 % (0.0-1.8) 01/19/21 05:05 Lymph # (Auto) 0.8 K/mm3 (1.2-5.4) L 01/19/21 05:05 Mineral # (Auto) 1.2 K/mm3 (0.0-0.8) H 01/19/21 05:05 Eos # (Auto) 0.2 K/mm3 (0.0-0.4) 01/19/21 05:05 Baso # (Auto) 0.0 K/mm3 (0.0-0.1) 01/19/21 05:05 Seg Neutrophils % 82.3 % (40.0-70.0) H 01/19/21 05:05 Seg Neutrophils # 10.4 K/mm3 (1.8-7.7) H 01/19/21 05:05 PT 14.9 Sec. (12.2-14.9) 01/18/21 08:33 INR 1.11 (0.87-1.13) 01/18/21 08:33 APTT 32.5 Sec. (24.2-36.6) 01/17/21 20:43 Sodium 133 mmol/L (137-145) L 01/19/21 05:05 Potassium 4.8 mmol/L (3.6-5.0) D 01/19/21 05:05 Chloride 94.6 mmol/L (98-107) L 01/19/21 05:05 Carbon Dioxide 25 mmol/L (22-30) 01/19/21 05:05 Anion Gap 18 mmol/L 01/19/21 05:05 BUN 10 mg/dL (7-17) 01/19/21 05:05 Creatinine 0.7 mg/dL (0.6-1.2) 01/19/21 05:05 Estimated GFR > 60 ml/min 01/19/21 05:05 BUN/Creatinine Ratio 14 % 01/19/21 05:05 Glucose 138 mg/dL (65-100) H 01/19/21 05:05 POC Glucose 95 mg/dL (70-105) 01/18/21 16:59 Calcium 9.1 mg/dL (8.4-10.2) 01/19/21 05:05 Magnesium 2.20 mg/dL (1.7-2.3) 01/17/21 20:43 Total Bilirubin 0.20 mg/dL (0.1-1.2) 01/17/21 15:51 AST 13 units/L (5-40) 01/17/21 15:51 ALT 6 units/L (7-56) L 01/17/21 15:51 Alkaline Phosphatase 79 units/L (35-129) 01/17/21 15:51 Total Creatine Kinase 43 units/L (30-135) 01/17/21 20:43 Troponin T < 0.010 ng/mL (0.00-0.029) 01/17/21 15:51 NT-Pro-B Natriuret Pep 2631 pg/mL (0-900) H 01/17/21 20:43 Total Protein 7.0 g/dL (6.3-8.2) 01/17/21 15:51 Albumin 3.4 g/dL (3.9-5) L 01/17/21 15:51 Albumin/Globulin Ratio 0.9 % 01/17/21 15:51 Blood Type A POSITIVE 01/17/21 20:40 Antibody Screen Negative 01/17/21 20:40 Crossmatch See Detail 01/17/21 20:40 Light/IV: Voiding Method External Female Catheter Active Medications - Current Medications Current Medications: Generic Name Dose Route Start Last Admin Trade Name Freq PRN Reason Stop Dose Admin Acetaminophen 650 mg 01/17/21 23:05 Acetaminophen 325 Mg Tab PO Q4H PRN Pain MILD(1-3)/Fever >100.5/JIMENES Albuterol 2.5 mg 01/17/21 23:27 Albuterol 2.5 Mg/3 Ml Nebu IH Q4HRT PRN Shortness Of Breath Amlodipine Besylate 5 mg 01/19/21 10:00 Amlodipine 5 Mg Tab PO DAILY [facility] Brimonidine/Timolol 1 drops 01/18/21 22:00 01/18/21 23:52 Combigan 0.2-0.5% Ophth Soln OU Not Given Q12HR [facility] Dextrose 50 ml 01/17/21 23:05 Dextrose 50% In Water (25gm) 50 Ml Syringe IV Q30MIN PRN Hypoglycemia Protocol Furosemide 40 mg 01/18/21 06:00 01/19/21 05:46 Furosemide 40 Mg/4 Ml Inj IV 40 mg BID@0600,1800 [facility] Administration Glipizide 5 mg 01/19/21 08:00 Glipizide 5 Mg Tab PO QDDIAB [facility] Insulin Human Lispro 0 unit 01/18/21 07:30 01/18/21 22:03 Insulin Lispro 100 Unit/Ml SUB-Q Not Given ACHS [facility] Protocol Latanoprost 1 drops 01/18/21 22:00 01/18/21 23:54 Latanoprost 0.005% Ophth Soln 2.5 Ml OU Not Given QHS [facility] Magnesium Hydroxide 30 ml 01/17/21 23:05 Magnesium Hydroxide (Mom) Oral Liqd Udc PO Q4H PRN Constipation Miscellaneous Medication 1 drop 01/18/21 22:00 01/18/21 23:53 Dorzolamide 2% Eye Drop OU Not Given BID [facility] Morphine Sulfate 2 mg 01/17/21 23:05 Morphine 2 Mg/1 Ml Inj IV Q4H PRN Pain, Moderate (4-6) Morphine Sulfate 4 mg 01/17/21 23:05 Morphine 4 Mg/1 Ml Inj IV Q4H PRN Pain , Severe (7-10) Ondansetron HCl 4 mg 01/17/21 23:05 Ondansetron 4 Mg/2 Ml Inj IV Q8H PRN Nausea And Vomiting Pantoprazole Sodium 40 mg 01/18/21 10:00 01/18/21 23:00 Pantoprazole 40 Mg Inj IV 40 mg BID BRITTANI Administration Sodium Chloride 10 ml 01/18/21 10:00 01/18/21 23:00 Sodium Chloride 0.9% 10 Ml Flush Syringe IV 10 ml BID BRITTANI Administration Sodium Chloride 10 ml 01/17/21 23:05 Sodium Chloride 0.9% 10 Ml Flush Syringe IV PRN PRN LINE FLUSH Nutrition/Malnutrition Assess - Dietary Evaluation Nutrition/Malnutrition Findings: Nutrition Notes Start: 01/18/21 14:39 Freq: Status: Active Protocol: Document 01/18/21 14:39 SANDEEP (Rec: 01/18/21 15:03 SANDEEP [email or web address]) Nutrition Notes Need for Assessment generated from: Education Initial or Follow up Assessment Current Diagnosis Heart Failure,Respiratory Failure Other Pertinent Diagnosis Dyspnea, GI bleeding Current Diet NPO (since 01/18). Labs/Tests 01/18: CO2 19, Glu 132. Pertinent Medications 01/18: Nutritionally unremarkable. Height 5 ft 2 in Weight 87.09 kg [place] Body Weight (kg) 50.00 BMI 35.1 Weight Status Obese Percent of energy/protein needs met: Pt is on NPO since 01/16. Burn Absent Trauma Absent GI Symptoms None Food Allergy No Skin Integrity/Comment Integumentary; clear, warm, dry. Current % PO Other Minimum of two criteria No physical signs of malnutrition #1 Nutrition Diagnosis No nutrition diagnosis at this time Comments: Pt does not seems to be candidate for nutrition education at the time. Is patient on ventilator? No Is Patient Ambulatory and/or Out of Bed Yes REE-([place]-ambulatory/OOB) [ 1636.895 [id number]] Kcal/Kg value to use for calculation 25 Approximate Energy Requirements Using 2177 kcal/Kg Calculation Used for Recommendations Kcal/kg Additional Notes Pt is currently on NPO. Protein: 0.8-1.0 g/Kg/day; 40- 50 g/day; 160-200 Kcal/day ( from IBW). Fluids: 1.0 ml/Kcal/day, or as per MD. Nutrition Intervention Change Diet Order: Continue NPO, or as per MD. Goal #1 Maintain body weight within +/ -3% of current BWt during LOS. Goal #2 Reach and maintain acceptable chemistry lab values during LOS. Follow-Up By: 01/25/21 Additional Comments Continue monitoring Hydration, and BM.
[2021-01-19] MEDS: PANTOPRAZOLE 40 MG INJ IV SCH ×2 (11:44→21:42)
--- NOTE | 2021-01-19 11:46 | Progress Note ---
Assessment and Plan 85-year-old female with known history of hypertension and diabetes mellitus presenting in the emergency room today complaining of shortness of breath. HFpEF * EKG shows sinus 78 with RBB. No acute ischemic changes. Trops neg x1 * BNP noted to be elevated * Echo 06/21/2019-EF 55 to 60%, abnormal left ventricular diastolic dysfunction is observed, right ventricular systolic function is, left and right atrium are normal in size. * CXR shows bronchiolitis vs pulm edema with atelectasis vs small pleural effusions * Echo 01/17/2021-EF 55 to 60%, mild concentric left ventricular hypertrophy, mild diastolic dysfunction is present impaired relaxation pattern, right ventricular systolic function is normal, left atrium is mildly dilated, right atrium is normal in size, mild to moderate mitral regurgitation eccentric jet posteriorly directed, there is mild pulmonary hypertension, mild tricuspid regurgitation RSVP 44mmHg. HTN * As outpatient on: Amlodipine 5mg QD Anemia * Initial HgB 7->10 after patient received 1unit of blood. * Management per primary team Plan: Stop Lasix 40mg IV BID. Initiate Valsartan 80mg PO BID. No cardiac contraindications for EGD/colonoscopy. Patient is cleared for procedure from cardiac standpoint Patient seen in conjunction with Dr. Lopez who agrees with this plan of care. Will continue to follow. - Patient Problems (1) CHF (congestive heart failure) Current Visit: Yes Status: Acute (2) GI bleed Current Visit: Yes Status: Acute (3) Guaiac positive stools Current Visit: Yes Status: Acute (4) Microcytic anemia Current Visit: Yes Status: Acute (5) Short of breath on exertion Current Visit: Yes Status: Acute (6) Thrombocytopenia Current Visit: Yes Status: Acute (7) HTN (hypertension) Current Visit: No Status: Chronic Qualifiers: Hypertension type: essential hypertension Qualified Code(s): I10 - Essential (primary) hypertension (8) T2DM (type 2 diabetes mellitus) Current Visit: No Status: Chronic 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 Subjective Date of service: 01/19/21 Principal diagnosis: Anemia Interval history: Patient reports improvement with breathing sinus 82 with RBBB and no events on monitor Objective Vital Signs Temp Pulse Resp BP BP Pulse Ox 01/19/21 10:50 98.7 F 20 136/72 01/19/21 07:25 98.7 F 22 115/58 01/19/21 04:43 97.9 F 85 18 166/74 94 01/19/21 04:35 98 01/19/21 04:00 76 01/19/21 00:51 7 L 152/52 01/19/21 00:41 81 28 H 152/52 99 01/19/21 00:31 82 22 152/52 98 01/19/21 00:21 86 25 H 152/52 97 01/19/21 00:11 79 20 152/52 98 01/19/21 00:01 35 H 152/52 97 01/18/21 23:51 87 23 152/52 97 01/18/21 23:41 88 34 H 164/66 87 01/18/21 23:31 76 21 164/66 96 01/18/21 23:21 76 22 164/66 97 01/18/21 23:01 92 H 39 H 164/66 98 01/18/21 22:01 75 21 160/70 97 01/18/21 21:01 74 25 H 177/75 97 01/18/21 20:01 74 19 162/55 99 01/18/21 19:01 76 20 155/124 93 01/18/21 18:01 85 19 157/49 53 L 01/18/21 17:55 97.8 F 67 23 157/49 98 01/18/21 17:01 71 21 212/65 99 01/18/21 16:01 71 18 219/109 99 01/18/21 15:01 81 26 H 173/138 98 01/18/21 14:01 76 23 180/63 100 01/18/21 13:01 65 22 201/78 99 01/18/21 12:00 72 16 177/69 99 - Physical Examination General: No Apparent Distress HEENT: Positive: PERRL Neck: Positive: trachea midline Cardiac: Positive: Reg Rate and Rhythm Lungs: Positive: Normal Breath Sounds Neuro: Positive: Grossly Intact Abdomen: Positive: Soft, Active Bowel Sounds Skin: Negative: Rash, Suspicious Lesions, Ulceration Extremities: Present: upper extr. pulses, lower extr. pulses (trace), edema - Labs and Meds CBC 01/19/21 Range/Units 05:05 WBC 12.6 H (4.5-11.0) K/mm3 RBC 3.99 (3.65-5.03) M/mm3 Hgb 9.3 L (10.1-14.3) gm/dl Hct 29.6 L (30.3-42.9) % Plt Count 426 (140-440) K/mm3 Lymph # (Auto) 0.8 L (1.2-5.4) K/mm3 [place] # (Auto) 1.2 H (0.0-0.8) K/mm3 Eos # (Auto) 0.2 (0.0-0.4) K/mm3 Baso # (Auto) 0.0 (0.0-0.1) K/mm3 Comprehensive Metabolic Panel 01/19/21 Range/Units 05:05 Sodium 133 L (137-145) mmol/L Potassium 4.8 D (3.6-5.0) mmol/L Chloride 94.6 L (98-107) mmol/L Carbon Dioxide 25 (22-30) mmol/L BUN 10 (7-17) mg/dL Creatinine 0.7 (0.6-1.2) mg/dL Glucose 138 H (65-100) mg/dL Calcium 9.1 (8.4-10.2) mg/dL - Imaging and Cardiology EKG: report reviewed, image reviewed Echo: report reviewed - Telemetry EKG Rhythm: Sinus Rhythm - EKG Sinus rhythms and dysrhythmias: sinus rhythm AV and intraventricular conduction: right bundle branch block
--- NOTE | 2021-01-19 13:03 | Hem/Onc Progress Note ---
Subjective Date of service: 01/19/21 Interval history: Heme followup note data review CPT: 89382 Dx: anemia This is an 85yo female who presents to the ED with shortness of breath Recently seen by PCP and was diagnosed with bronchitis Past medical history of hypertension and diabetes Noted to have minimal swelling of bilateral lower extremities As per nurse, patient with delayed mentation Labs reveal hgb 7 on admission Positive fecal occult blood GI planning for EGD/colonscopy Cleared by cardiology DATA REVIEWED BELOW WBC 12.6 Hgb 9.3 Hct 29.6 MCV 74 Plts 426 IMP: Presumed iron deficiency based on low MCV appears like chronic bleeding GI tract malignancy is a possibility Hemoglobin stable REC/PLAN: AM labs to include daily CBC Transfuse 1 unit PRBC whenever hematocrit<23 EGD/colonoscopy planned, but doubt she is a candidate for antitumor therapy even if cancer were found Laboratory Last Values WBC 12.6 K/mm3 (4.5-11.0) H 01/19/21 05:05 RBC 3.99 M/mm3 (3.65-5.03) 01/19/21 05:05 Hgb 9.3 gm/dl (10.1-14.3) L 01/19/21 05:05 Hct 29.6 % (30.3-42.9) L 01/19/21 05:05 MCV 74 fl (79-97) L 01/19/21 05:05 MCH 23 pg (28-32) L 01/19/21 05:05 MCHC 31 % (30-34) 01/19/21 05:05 RDW 21.4 % (13.2-15.2) H 01/19/21 05:05 Plt Count 426 K/mm3 (140-440) 01/19/21 05:05 Lymph % (Auto) 6.7 % (13.4-35.0) L 01/19/21 05:05 [place] % (Auto) 9.2 % (0.0-7.3) H 01/19/21 05:05 Eos % (Auto) 1.5 % (0.0-4.3) 01/19/21 05:05 Baso % (Auto) 0.3 % (0.0-1.8) 01/19/21 05:05 Lymph # (Auto) 0.8 K/mm3 (1.2-5.4) L 01/19/21 05:05 [place] # (Auto) 1.2 K/mm3 (0.0-0.8) H 01/19/21 05:05 Eos # (Auto) 0.2 K/mm3 (0.0-0.4) 01/19/21 05:05 Baso # (Auto) 0.0 K/mm3 (0.0-0.1) 01/19/21 05:05 Seg Neutrophils % 82.3 % (40.0-70.0) H 01/19/21 05:05 Seg Neutrophils # 10.4 K/mm3 (1.8-7.7) H 01/19/21 05:05 PT 14.9 Sec. (12.2-14.9) 01/18/21 08:33 INR 1.11 (0.87-1.13) 01/18/21 08:33 APTT 32.5 Sec. (24.2-36.6) 01/17/21 20:43 Sodium 133 mmol/L (137-145) L 01/19/21 05:05 Potassium 4.8 mmol/L (3.6-5.0) D 01/19/21 05:05 Chloride 94.6 mmol/L (98-107) L 01/19/21 05:05 Carbon Dioxide 25 mmol/L (22-30) 01/19/21 05:05 Anion Gap 18 mmol/L 01/19/21 05:05 BUN 10 mg/dL (7-17) 01/19/21 05:05 Creatinine 0.7 mg/dL (0.6-1.2) 01/19/21 05:05 Estimated GFR > 60 ml/min 01/19/21 05:05 BUN/Creatinine Ratio 14 % 01/19/21 05:05 Glucose 138 mg/dL (65-100) H 01/19/21 05:05 POC Glucose 109 mg/dL (70-105) H 01/19/21 11:08 Calcium 9.1 mg/dL (8.4-10.2) 01/19/21 05:05 Magnesium 2.20 mg/dL (1.7-2.3) 01/17/21 20:43 Total Bilirubin 0.20 mg/dL (0.1-1.2) 01/17/21 15:51 AST 13 units/L (5-40) 01/17/21 15:51 ALT 6 units/L (7-56) L 01/17/21 15:51 Alkaline Phosphatase 79 units/L (35-129) 01/17/21 15:51 Total Creatine Kinase 43 units/L (30-135) 01/17/21 20:43 Troponin T < 0.010 ng/mL (0.00-0.029) 01/17/21 15:51 NT-Pro-B Natriuret Pep 2631 pg/mL (0-900) H 01/17/21 20:43 Total Protein 7.0 g/dL (6.3-8.2) 01/17/21 15:51 Albumin 3.4 g/dL (3.9-5) L 01/17/21 15:51 Albumin/Globulin Ratio 0.9 % 01/17/21 15:51 Blood Type A POSITIVE 01/17/21 20:40 Antibody Screen Negative 01/17/21 20:40 Crossmatch See Detail 01/17/21 20:40 Objective - Constitutional Vitals: Last Vital Signs Temp 98.7 F 01/19/21 10:50 Pulse 85 01/19/21 04:43 Resp 20 01/19/21 10:50 BP 136/72 01/19/21 10:50 Pulse Ox 94 01/19/21 04:43 - Labs Lab Results: Laboratory Results - last 24 hr 01/18/21 01/18/21 01/19/21 13:09 16:59 05:05 WBC 12.6 H RBC 3.99 Hgb 9.3 L Hct 29.6 L MCV 74 L MCH 23 L MCHC 31 RDW 21.4 H Plt Count 426 Lymph % (Auto) 6.7 L [place] % (Auto) 9.2 H Eos % (Auto) 1.5 Baso % (Auto) 0.3 Lymph # (Auto) 0.8 L [place] # (Auto) 1.2 H Eos # (Auto) 0.2 Baso # (Auto) 0.0 Seg Neutrophils % 82.3 H Seg Neutrophils # 10.4 H Sodium Potassium Chloride Carbon Dioxide Anion Gap BUN Creatinine Estimated GFR BUN/Creatinine Ratio Glucose POC Glucose 101 95 Calcium 01/19/21 01/19/21 05:05 11:08 WBC RBC Hgb Hct MCV MCH MCHC RDW Plt Count Lymph % (Auto) [place] % (Auto) Eos % (Auto) Baso % (Auto) Lymph # (Auto) [place] # (Auto) Eos # (Auto) Baso # (Auto) Seg Neutrophils % Seg Neutrophils # Sodium 133 L Potassium 4.8 D Chloride 94.6 L Carbon Dioxide 25 Anion Gap 18 BUN 10 Creatinine 0.7 Estimated GFR > 60 BUN/Creatinine Ratio 14 Glucose 138 H POC Glucose 109 H Calcium 9.1 Medications & Allergies - Medications Allergies/Adverse Reactions: Allergies No Known Allergies Allergy (Verified 01/18/21 08:25) Home Medications: Home Medications Medication Instructions Recorded Confirmed Last Taken Type [place] 0.01% 1 drop OU HS 06/20/19 01/18/21 06/19/19 21:00 History glipiZIDE [Glucotrol] 5 mg PO DAILY 06/20/19 01/18/21 06/20/19 08:00 History Albuterol Mdi (or & Nicu Only) 2 puff IH QID PRN 01/18/21 01/18/21 Unknown History [ProAir HFA Inhaler] Chlorpheniramine/Phenyleph/Dm 1 tsp PO HS 01/18/21 01/18/21 Unknown History [Rycontuss Liquid] Combigan 0.2%-0.5% Eye Drops 1 drop OU BID 01/18/21 01/18/21 Unknown History Dorzolamide 2% Eye Drop 1 drop OU BID 01/18/21 01/18/21 Unknown History Om3/Dha/Epa/Cod Liver Oil/A/D3 1 each PO QDAY 01/18/21 01/18/21 Unknown History [Cod Liver Oil Softgel] amLODIPine [Norvasc] 5 mg PO DAILY 01/18/21 01/18/21 Unknown History Active Medications: Generic Name Dose Route Start Last Admin Trade Name Freq PRN Reason Stop Dose Admin Acetaminophen 650 mg 01/17/21 23:05 Acetaminophen 325 Mg Tab PO Q4H PRN Pain MILD(1-3)/Fever >100.5/JIMENES Albuterol 2.5 mg 01/17/21 23:27 Albuterol 2.5 Mg/3 Ml Nebu IH Q4HRT PRN Shortness Of Breath Amlodipine Besylate 5 mg 01/19/21 10:00 Amlodipine 5 Mg Tab PO DAILY BRITTANI Brimonidine/Timolol 1 drops 01/18/21 22:00 01/18/21 23:52 Combigan 0.2-0.5% Ophth Soln OU Not Given Q12HR [facility] Dextrose 50 ml 01/17/21 23:05 Dextrose 50% In Water (25gm) 50 Ml Syringe IV Q30MIN PRN Hypoglycemia Protocol Glipizide 5 mg 01/19/21 08:00 Glipizide 5 Mg Tab PO QDDIAB [facility] Insulin Human Lispro 0 unit 01/18/21 07:30 01/18/21 22:03 Insulin Lispro 100 Unit/Ml SUB-Q Not Given ACHS [facility] Protocol Latanoprost 1 drops 01/18/21 22:00 01/18/21 23:54 Latanoprost 0.005% Ophth Soln 2.5 Ml OU Not Given QHS [facility] Magnesium Hydroxide 30 ml 01/17/21 23:05 Magnesium Hydroxide (Mom) Oral Liqd Udc PO Q4H PRN Constipation Miscellaneous Medication 1 drop 01/18/21 22:00 01/18/21 23:53 Dorzolamide 2% Eye Drop OU Not Given BID [facility] Morphine Sulfate 2 mg 01/17/21 23:05 Morphine 2 Mg/1 Ml Inj IV Q4H PRN Pain, Moderate (4-6) Morphine Sulfate 4 mg 01/17/21 23:05 Morphine 4 Mg/1 Ml Inj IV Q4H PRN Pain , Severe (7-10) Ondansetron HCl 4 mg 01/17/21 23:05 Ondansetron 4 Mg/2 Ml Inj IV Q8H PRN Nausea And Vomiting Pantoprazole Sodium 40 mg 01/18/21 10:00 01/18/21 23:00 Pantoprazole 40 Mg Inj IV 40 mg BID [facility] Administration Sodium Chloride 10 ml 01/18/21 10:00 01/18/21 23:00 Sodium Chloride 0.9% 10 Ml Flush Syringe IV 10 ml BID BRITTANI Administration Sodium Chloride 10 ml 01/17/21 23:05 Sodium Chloride 0.9% 10 Ml Flush Syringe IV PRN PRN LINE FLUSH Valsartan 80 mg 01/19/21 11:00 Valsartan 40 Mg Tab PO BID [facility]
[2021-01-19] MEDS: VALSARTAN 40 MG TAB PO SCH ×2 (15:00→21:42)
[2021-01-19] MEDS: amLODIPine 5 MG TAB PO SCH (15:00)
--- NOTE | 2021-01-19 16:49 | Gastroenterology Progress Note ---
Assessment and Plan 1. GI: stable w/o signs bleeding - follow h/h, transfuse as needed - plan egd/colonoscopy for am Subjective Date of service: 01/19/21 Principal diagnosis: Anemia Interval history: - no signs bleeding or other GI issues overnight Objective - Constitutional Vitals: Temp Pulse Resp BP Pulse Ox 99.1 F 77 77 H 118/53 96 01/19/21 14:50 01/19/21 14:50 01/19/21 14:50 01/19/21 14:50 01/19/21 14:50 General appearance: no acute distress - EENT Eyes: PERRL - Respiratory Respiratory: bilateral: CTA - Cardiovascular Rhythm: regular Heart Sounds: Present: S1 & S2 - Gastrointestinal General gastrointestinal: Present: soft, non-tender, non-distended - Labs CBC & Chem 7: 01/19/21 05:05 01/19/21 05:05 Labs: Laboratory Results - last 24 hr 01/18/21 01/19/21 01/19/21 16:59 05:05 05:05 WBC 12.6 H RBC 3.99 Hgb 9.3 L Hct 29.6 L MCV 74 L MCH 23 L MCHC 31 RDW 21.4 H Plt Count 426 Lymph % (Auto) 6.7 L [place] % (Auto) 9.2 H Eos % (Auto) 1.5 Baso % (Auto) 0.3 Lymph # (Auto) 0.8 L [place] # (Auto) 1.2 H Eos # (Auto) 0.2 Baso # (Auto) 0.0 Seg Neutrophils % 82.3 H Seg Neutrophils # 10.4 H Sodium 133 L Potassium 4.8 D Chloride 94.6 L Carbon Dioxide 25 Anion Gap 18 BUN 10 Creatinine 0.7 Estimated GFR > 60 BUN/Creatinine Ratio 14 Glucose 138 H POC Glucose 95 Calcium 9.1 01/19/21 01/19/21 11:08 15:10 WBC RBC Hgb Hct MCV MCH MCHC RDW Plt Count Lymph % (Auto) [place] % (Auto) Eos % (Auto) Baso % (Auto) Lymph # (Auto) [place] # (Auto) Eos # (Auto) Baso # (Auto) Seg Neutrophils % Seg Neutrophils # Sodium Potassium Chloride Carbon Dioxide Anion Gap BUN Creatinine Estimated GFR BUN/Creatinine Ratio Glucose POC Glucose 109 H 122 H Calcium
[2021-01-19] MEDS ORDERED: POLYETHYLENE GLYCOL/ELECT SOLN 4000 ML PO NR (18:00)
[2021-01-19] MEDS: COMBIGAN 0.2-0.5% OPHTH SOLN OU SCH ×2 (21:41→21:56)
[2021-01-19] MEDS: LATANOPROST 0.005% OPHTH SOLN 2.5 ML OU SCH (21:43)
[2021-01-20 06:08] LABS: Basophils # (Auto) 0.1 K/mm3 (0.0-0.1); Basophils % (Auto) 0.6 % (0.0-1.8); Eosinophils # (Auto) 0.1 K/mm3 (0.0-0.4); Eosinophils % (Auto) 1.2 % (0.0-4.3); Hematocrit 27.1 % (30.3-42.9); Hemoglobin 8.5 gm/dl (10.1-14.3); Lymphocytes # (Auto) 0.9 K/mm3 (1.2-5.4); Lymphocytes % (Auto) 7.2 % (13.4-35.0); Mean Corpuscular HGB Conc 31 % (30-34); Mean Corpuscular Volume 72 fl (79-97); Monocytes # (Auto) 1.5 K/mm3 (0.0-0.8); Monocytes % (Auto) 12.2 % (0.0-7.3); Platelet Count 414 K/mm3 (140-440); Red Blood Count 3.76 M/mm3 (3.65-5.03)
[2021-01-20 06:22] LABS: Red Cell Distribution Width 22.3 % (13.2-15.2)
[2021-01-20 06:30] LABS: Calcium 8.6 mg/dL (8.4-10.2)
[2021-01-20] MEDS: INSULIN LISPRO 100 UNIT/ML SUB-Q SCH ×4 (08:01→22:03)
--- NOTE | 2021-01-20 08:10 | Discharge Summary ---
Providers - Providers Date of Admission: 01/18/21 16:02 Date of discharge: 01/20/21 Attending physician: KACI BALDWIN 01/17/21 20:39 Consult to Physician [CONS] Urgent Comment: Dr. Olvera spoke with Dr. Paz @ 2052 Consulting Provider: IMAN HERNANDEZ Physician Instructions: Reason For Exam: gi bleed anemia 01/17/21 20:59 Consult to Physician [CONS] Urgent Comment: Consulting Provider: LUIS ENRIQUE TAPIA Physician Instructions: Reason For Exam: anemia, thrombocytopenia 01/17/21 23:06 Consult to Dietitian/Nutrition [CONS] Routine Physician Instructions: Reason For Exam: Reason for Consult: Diet education 01/18/21 05:25 Consult to Cardiology [CONS] Routine Consulting Provider: GAVIN ROTHMAN Reason For Exam: CHF- [place] Primary care physician: CRANE CHASER Hospitalization Reason for admission: SOB Condition: Fair Hospital course: 85-year-old female with past medical history of hypertension diabetes mellitus type 2 who presented through the emergency department with chief complaint of shortness of breath. Patient was recently seen by PCP and was diagnosed with ac [place] bronchitis. On admission, patient was noted to have a hemoglobin of 7 and positive fecal occult blood. Patient was admitted with diagnosis of symptomatic anemia, GI bleed, thrombocytopenia, mild heart failure with preserved EF. The patient was seen by GI in consultation who recommended EGD/colonoscopy. Patient had a previous echocardiogram June 2019 which revealed abnormal left ventricular diastolic dysfunction with a EF of 55 to 60%. Chest x-ray on this admission revealed bronchiolitis versus pulmonary edema with atelectasis and small pleural effusions. Cardiology saw the patient in consultation and initiated Lasix IV twice daily as well as valsartan 80 mg p.o. twice daily. The patient's heart failure resolved. Cardiology cleared the patient for EGD/colonoscopy. Patient received 1 unit PRBCs with significant improvement of hemoglobin to 10.0. Hemoglobin remained stable at 8.5. There have been no reports of active bleeding. Patient has had EGD/colonoscopy today and if found to be negative will discharge home Disposition: 01 HOME / SELF CARE / HOMELESS Final Discharge Diagnosis (Prints w/discharge instructions): symptomatic anemia, GI bleed, thrombocytopenia, mild heart failure with preserved EF. Core Measure Documentation - Palliative Care Palliative Care/ Comfort Measures: Not Applicable - Core Measures Any of the following diagnoses?: none Exam - Constitutional Vitals: Temp Pulse Resp BP Pulse Ox 98.4 F 68 18 121/78 96 01/20/21 04:31 01/20/21 04:31 01/19/21 23:08 01/20/21 04:31 01/20/21 03:32 General appearance: Present: no acute distress, well-nourished - EENT Eyes: Present: PERRL ENT: hearing intact, clear oral mucosa - Neck Neck: Present: supple, normal ROM - Respiratory Respiratory effort: normal Respiratory: bilateral: CTA - Cardiovascular Heart Sounds: Present: S1 & S2. Absent: rub, click - Extremities Extremities: pulses symmetrical, No edema Peripheral Pulses: within normal limits - Abdominal General gastrointestinal: Present: soft, non-tender, non-distended, normal bowel sounds Female genitourinary: Present: normal - Integumentary Integumentary: Present: clear, warm, dry - Musculoskeletal Musculoskeletal: gait normal, strength equal bilaterally - Psychiatric Psychiatric: appropriate mood/affect, intact judgment & insight - Neurologic Neurologic: CNII-XII intact, moves all extremities Plan Activity: advance as tolerated Weight Bearing Status: Weight Bear as Tolerated Diet: regular Follow up with: PRIMARY CARE, [Primary Care Provider] - 3-5 Days SAURABH PAZ MD [Staff Physician] - 7 Days DIETER ALONZO MD [Staff Physician] - 7 Days Prescriptions: amLODIPine 5 mg PO DAILY #30 Valsartan [Diovan] 80 mg PO BID #60 tablet Pantoprazole [Protonix] 40 mg PO QDAY #30 tablet
--- NOTE | 2021-01-20 09:01 | Progress Note ---
Assessment and Plan Discontinue Amlodipine. Continue Valsartan 80mg BID. Awaiting EGD/colonoscopy today. No cardiac contraindications. Pt seen in conjunction with Dr. Lopez, who agrees with the assessment and plan of care. - Patient Problems (1) GI bleed Current Visit: Yes Status: Suspected (2) Anemia Current Visit: Yes Status: Acute (3) Leukocytosis Current Visit: Yes Status: Acute (4) HTN (hypertension) Current Visit: Yes Status: Chronic Qualifiers: Hypertension type: primary hypertension Qualified Code(s): I10 - Essential (primary) hypertension (5) T2DM (type 2 diabetes mellitus) Current Visit: Yes Status: Chronic Qualifiers: Diabetes mellitus exterminator helper termite insulin use: unspecified group home insulin use status Subjective Date of service: 01/20/21 Principal diagnosis: Anemia Interval history: Resting comfortably in bed. No cardiac complaints. SR 60-70s on tele. Objective Last Vital Signs Temp 98.4 F 01/20/21 04:31 Pulse 68 01/20/21 04:31 Resp 18 01/19/21 23:08 BP 121/78 01/20/21 04:31 Pulse Ox 93 01/20/21 09:42 - Physical Examination General: No Apparent Distress HEENT: Positive: EOMI, Normocephaly Neck: Positive: neck supple, trachea midline. Negative: JVD/HJR Cardiac: Positive: Reg Rate and Rhythm, S1/S2 Lungs: Positive: clear to auscultation Neuro: Positive: Grossly Intact Abdomen: Positive: Soft. Negative: Tender Skin: Negative: Rash Musculoskeletal: No Pain Extremities: Present: lower extr. pulses, edema - Labs and Meds CBC 01/20/21 Range/Units 04:00 WBC 12.4 H (4.5-11.0) K/mm3 RBC 3.76 (3.65-5.03) M/mm3 Hgb 8.5 L (10.1-14.3) gm/dl Hct 27.1 L (30.3-42.9) % Plt Count 414 (140-440) K/mm3 Lymph # (Auto) 0.9 L (1.2-5.4) K/mm3 [place] # (Auto) 1.5 H (0.0-0.8) K/mm3 Eos # (Auto) 0.1 (0.0-0.4) K/mm3 Baso # (Auto) 0.1 (0.0-0.1) K/mm3 Comprehensive Metabolic Panel 01/20/21 Range/Units 04:00 Sodium 139 (137-145) mmol/L Potassium 3.5 L D (3.6-5.0) mmol/L Chloride 99.1 (98-107) mmol/L Carbon Dioxide 24 (22-30) mmol/L BUN 15 (7-17) mg/dL Creatinine 1.1 D (0.6-1.2) mg/dL Glucose 159 H (65-100) mg/dL Calcium 8.6 (8.4-10.2) mg/dL - Imaging and Cardiology EKG: report reviewed, image reviewed Echo: report reviewed (01/17/2021 - EF 55-60%, mild LVH, mild diastolic dysfxn, mild-mod MR, mild TR, mild pulm HTN w/RVSP 44mmHg, mild UT) - Telemetry EKG Rhythm: Sinus Rhythm - EKG Sinus rhythms and dysrhythmias: sinus rhythm AV and intraventricular conduction: right bundle branch block, left anterior fascicular
[2021-01-20] MEDS ORDERED: SODIUM CHLORIDE 0.9% 1000 ML 1,000 ML ONE (09:15)
[2021-01-20] MEDS: VALSARTAN 40 MG TAB PO SCH ×2 (10:37→22:02)
[2021-01-20] MEDS: glipiZIDE 5 MG TAB PO SCH (10:37)
[2021-01-20] MEDS: amLODIPine 5 MG TAB PO SCH (10:37)
[2021-01-20] MEDS: PANTOPRAZOLE 40 MG INJ IV SCH ×2 (10:38→22:02)
--- NOTE | 2021-01-20 15:04 | Anesthesia Consultation ---
Anesthesia Consult and Med Hx - Airway Anesthetic Teeth Evaluation: Edentulous ROM Head & Neck: Adequate Mental/Hyoid Distance: Adequate Mallampati Class: Class III Intubation Access Assessment: Probably Good - Pulmonary Exam CTA: Yes - Cardiac Exam Cardiac Exam: RRR - Pre-Operative Health Status ASA Pre-Surgery Classification: ASA3 Proposed Anesthetic Plan: MAC - Pulmonary Hx Smoking: No Hx Asthma: No SOB: Yes (On admission - not currently) COPD: No Hx Sleep Apnea: No - Cardiovascular System Hx Hypertension: Yes (CHF - EF 55-60% on Echo from 2019) Hx Heart Attack/AMI: No - Central Nervous System Hx Neuromuscular Disorder: No - Endocrine Hx Non-Insulin Dependent Diabetes: Yes - Hematic Hx Anemia: Yes - Other Systems Hx Alcohol Use: No Hx Substance Use: No Hx Cancer: No Hx Obesity: Yes (BMI 39) - Additional Comments Anesthesia Medical History Comments: No hx of anesthetic complications
--- NOTE | 2021-01-20 15:05 | Anesthesia Day of Surgery ---
Anesthesia Day of Surgery - Day of Surgery Patient Examined: Yes Patient H&P Reviewed: Yes Patient is NPO: Yes
[2021-01-20] MEDS ORDERED: propofoL 200 MG/20 ML VIAL IV ONE (15:08)
[2021-01-20] MEDS ORDERED: LIDOCAINE MPF (2%) 20 MG/1 ML VIAL 5 ML ONE (15:43)
--- NOTE | 2021-01-20 17:13 | Post Operative Note ---
Pre-op diagnosis: anemia Post-op diagnosis: same Findings: EGD: hiatal hernia - gastritis - negative other Colon: poor prep, completed - internal hemorrhoids - negative other Procedure: EGD/colon Anesthesia: MAC Surgeon: SAURABH GRANDE Estimated blood loss: none Pathology: list Specimen disposition: to lab Condition: stable Disposition: floor
--- NOTE | 2021-01-20 17:27 | Operative Report ---
DATE OF SURGERY: 01/20/2021 PROCEDURE: EGD. INDICATIONS: 1. Anemia. 2. Gastrointestinal bleed. MEDICATIONS: Propofol per STUD DRIVER. COMPLICATIONS: None. DESCRIPTION OF PROCEDURE: The patient was brought to the procedure suite. The patient had the procedure discussed with her at length. All risks, complications, and benefits discussed, which the patient signed for the procedure to be performed. The patient was placed in left lateral decubitus position. Mouth block placed in the patient's oral cavity. After adequate sedation with medication as above, endoscope placed in the mouth and brought to level of second portion of duodenum. Retroflexion view performed. The patient's vital signs remained stable throughout the procedure. FINDINGS: There was a large hiatal hernia approximately 6 cm noted at GE junction. The GE junction was approximately 33 cm from the gums. Esophagus otherwise appeared to be normal. There was mild gastritis noted in the stomach. Stomach otherwise appeared to be normal. Duodenum appeared to be normal. Retroflexion view performed in the stomach showed no other pathology other than noted above. The patient tolerated the procedure well. No complications during this procedure. IMPRESSION: 1. Large hiatal hernia. 2. Mild gastritis. 3. Otherwise, normal esophagogastroduodenoscopy. RECOMMENDATIONS: 1. Follow hematocrit and transfuse as needed. 2. Continue current medications. 3. Colonoscopy to follow. Further recommendation based on colonoscopy results. TID: [id number] RECEIPT: [id number] JERED/SOLOMON
--- NOTE | 2021-01-20 18:13 | Operative Report ---
DATE OF SURGERY: 01/20/2021 PROCEDURE: Colonoscopy INDICATIONS: 1. Anemia. 2. Gastrointestinal bleed. MEDICATIONS: Propofol per KAIWHAKAHAERE. COMPLICATIONS: None. DESCRIPTION OF PROCEDURE: The patient brought to procedure suite. The patient had the procedure discussed with her at length. All risks, complications, and benefits discussed, after which the patient signed for the procedure to be performed. The patient was placed in left lateral decubitus position. Rectal exam performed prior to insertion of the scope. After adequate sedation with medications as above, scope inserted into the rectum and brought to the level of cecum. Ileocecal valve, appendiceal orifice, cecal strap were visualized. Colonoscope was then removed and the mucosa visualized. Prep quality was poor, but procedure was completed. The patient's vital signs remained stable throughout the procedure. FINDINGS: This was a poor prep procedure, but was completed. Cannot rule out very small lesions. There are no obvious mass lesions or polyps noted during this procedure. There were few sigmoid diverticula noted. Retroflexion view performed in the rectum showed small internal hemorrhoids. The patient tolerated the procedure well. No complications during this procedure. IMPRESSION: 1. Internal hemorrhoids. 2. Diverticulosis. 3. Otherwise, normal colonoscopy. RECOMMENDATIONS: 1. High fiber diet. 2. Continue current medication. 3. Advance diet. 4. Follow H and H and transfuse as needed. 5. Okay to discharge from GI standpoint. TID: [id number] RECEIPT: [id number] JERED/TANK
[2021-01-20] MEDS: COMBIGAN 0.2-0.5% OPHTH SOLN OU SCH ×2 (22:01→22:03)
[2021-01-20] MEDS: LATANOPROST 0.005% OPHTH SOLN 2.5 ML OU SCH (22:02)
--- NOTE | 2021-01-21 07:49 | Progress Note ---
Assessment and Plan Assessment and plan: GI bleed Microcytic anemia Thrombocytopenia Acute mild diastolic heart failure exacerbation Mild pulmonary hypertension. DVT prophylaxis 01/18/2021. Continue heart failure protocol, GDMT and await cardiology consultation. Patient with echocardiogram in June 2019 that revealed diastolic heart failure. Follow-up echocardiogram this admission. Await GI consultation for GI bleed. Hemoglobin has improved to 10.0 after 1 unit PRBCs. Continue to follow H&H 01/19/2021. Await cardiology recommendations for heart failure. Follow-up echocardiogram. GI to perform EGD/colonoscopy once cleared by cardiology. Hemoglobin remained stable at 9.3. Continue to follow H&H. 01/20/2021. Cardiology opted to discontinue amlodipine and continue valsartan 80 mg twice daily. Cardiology felt heart failure with preserved EF at resolved. Echocardiogram this admission revealed EF of 55 to 60% with mild concentric left ventricular hypertrophy and mild diastolic dysfunction with impaired relaxation. Right ventricular systolic function normal with left atrium mildly dilated. Patient also noted to have mild pulmonary hypertension with mild tricuspid regurgitation and RSVP 44 mmHg. Lasix discontinued. EGD was completed which revealed hiatal hernia and gastritis. Colonoscopy revealed internal hemorrhoids but otherwise normal. GI had no other recommendations. Patient will be discharged home with Protonix. History Interval history: No new issues overnight Hospitalist Physical - Constitutional Vitals: Temp Pulse Resp BP Pulse Ox 98.2 F 76 16 149/54 92 01/21/21 04:05 01/21/21 04:05 01/21/21 04:05 01/21/21 04:05 01/21/21 04:05 General appearance: Present: no acute distress, well-nourished - EENT Eyes: Present: PERRL, EOM intact ENT: hearing intact, clear oral mucosa, dentition normal - Neck Neck: Present: supple, normal ROM - Respiratory Respiratory effort: normal Respiratory: bilateral: CTA - Cardiovascular Rhythm: regular Heart Sounds: Present: S1 & S2. Absent: gallop, rub - Extremities Extremities: no ischemia, No edema, Full ROM - Abdominal General gastrointestinal: soft, non-tender, non-distended, normal bowel sounds - Integumentary Integumentary: Present: clear, warm, dry - Neurologic Neurologic: CNII-XII intact, moves all extremities HEART Score - HEART Score Troponin: Troponin T < 0.010 ng/mL (0.00-0.029) 01/17/21 15:51 Results - Labs CBC & Chem 7: 01/20/21 04:00 01/20/21 04:00 Labs: Laboratory Last Values WBC 12.4 K/mm3 (4.5-11.0) H 01/20/21 04:00 RBC 3.76 M/mm3 (3.65-5.03) 01/20/21 04:00 Hgb 8.5 gm/dl (10.1-14.3) L 01/20/21 04:00 Hct 27.1 % (30.3-42.9) L 01/20/21 04:00 MCV 72 fl (79-97) L 01/20/21 04:00 MCH 23 pg (28-32) L 01/20/21 04:00 MCHC 31 % (30-34) 01/20/21 04:00 RDW 22.3 % (13.2-15.2) H 01/20/21 04:00 Plt Count 414 K/mm3 (140-440) 01/20/21 04:00 Lymph % (Auto) 7.2 % (13.4-35.0) L 01/20/21 04:00 [place] % (Auto) 12.2 % (0.0-7.3) H 01/20/21 04:00 Eos % (Auto) 1.2 % (0.0-4.3) 01/20/21 04:00 Baso % (Auto) 0.6 % (0.0-1.8) 01/20/21 04:00 Lymph # (Auto) 0.9 K/mm3 (1.2-5.4) L 01/20/21 04:00 [place] # (Auto) 1.5 K/mm3 (0.0-0.8) H 01/20/21 04:00 Eos # (Auto) 0.1 K/mm3 (0.0-0.4) 01/20/21 04:00 Baso # (Auto) 0.1 K/mm3 (0.0-0.1) 01/20/21 04:00 Seg Neutrophils % 78.8 % (40.0-70.0) H 01/20/21 04:00 Seg Neutrophils # 9.7 K/mm3 (1.8-7.7) H 01/20/21 04:00 PT 14.9 Sec. (12.2-14.9) 01/18/21 08:33 INR 1.11 (0.87-1.13) 01/18/21 08:33 APTT 32.5 Sec. (24.2-36.6) 01/17/21 20:43 Sodium 139 mmol/L (137-145) 01/20/21 04:00 Potassium 3.5 mmol/L (3.6-5.0) L D 01/20/21 04:00 Chloride 99.1 mmol/L (98-107) 01/20/21 04:00 Carbon Dioxide 24 mmol/L (22-30) 01/20/21 04:00 Anion Gap 19 mmol/L 01/20/21 04:00 BUN 15 mg/dL (7-17) 01/20/21 04:00 Creatinine 1.1 mg/dL (0.6-1.2) D 01/20/21 04:00 Estimated GFR 57 ml/min 01/20/21 04:00 BUN/Creatinine Ratio 14 % 01/20/21 04:00 Glucose 159 mg/dL (65-100) H 01/20/21 04:00 POC Glucose 123 mg/dL (70-105) H 01/21/21 07:21 Calcium 8.6 mg/dL (8.4-10.2) 01/20/21 04:00 Magnesium 2.20 mg/dL (1.7-2.3) 01/17/21 20:43 Total Bilirubin 0.20 mg/dL (0.1-1.2) 01/17/21 15:51 AST 13 units/L (5-40) 01/17/21 15:51 ALT 6 units/L (7-56) L 01/17/21 15:51 Alkaline Phosphatase 79 units/L (35-129) 01/17/21 15:51 Total Creatine Kinase 43 units/L (30-135) 01/17/21 20:43 Troponin T < 0.010 ng/mL (0.00-0.029) 01/17/21 15:51 NT-Pro-B Natriuret Pep 2631 pg/mL (0-900) H 01/17/21 20:43 Total Protein 7.0 g/dL (6.3-8.2) 01/17/21 15:51 Albumin 3.4 g/dL (3.9-5) L 01/17/21 15:51 Albumin/Globulin Ratio 0.9 % 01/17/21 15:51 Blood Type A POSITIVE 01/17/21 20:40 Antibody Screen Negative 01/17/21 20:40 Crossmatch See Detail 01/17/21 20:40 Light/IV: Voiding Method Bedside Commode Active Medications - Current Medications Current Medications: Generic Name Dose Route Start Last Admin Trade Name Freq PRN Reason Stop Dose Admin Acetaminophen 650 mg 01/17/21 23:05 Acetaminophen 325 Mg Tab PO Q4H PRN Pain MILD(1-3)/Fever >100.5/JIMENES Albuterol 2.5 mg 01/17/21 23:27 Albuterol 2.5 Mg/3 Ml Nebu IH Q4HRT PRN Shortness Of Breath Brimonidine/Timolol 1 drops 01/18/21 22:00 01/20/21 22:03 Combigan 0.2-0.5% Ophth Soln OU Not Given Q12HR BRITTANI Dextrose 50 ml 01/17/21 23:05 Dextrose 50% In Water (25gm) 50 Ml Syringe IV Q30MIN PRN Hypoglycemia Protocol Glipizide 5 mg 01/19/21 08:00 01/20/21 10:37 Glipizide 5 Mg Tab PO Not Given QDDIAB [facility] Insulin Human Lispro 0 unit 01/18/21 07:30 01/20/21 22:03 Insulin Lispro 100 Unit/Ml SUB-Q Not Given ACHS [facility] Protocol Latanoprost 1 drops 01/18/21 22:00 01/20/21 22:02 Latanoprost 0.005% Ophth Soln 2.5 Ml OU 1 drops QHS BRITTANI Administration Magnesium Hydroxide 30 ml 01/17/21 23:05 Magnesium Hydroxide (Mom) Oral Liqd Udc PO Q4H PRN Constipation Miscellaneous Medication 1 drop 01/18/21 22:00 01/18/21 23:53 Dorzolamide 2% Eye Drop OU Not Given BID BRITTANI Morphine Sulfate 2 mg 01/17/21 23:05 Morphine 2 Mg/1 Ml Inj IV Q4H PRN Pain, Moderate (4-6) Morphine Sulfate 4 mg 01/17/21 23:05 Morphine 4 Mg/1 Ml Inj IV Q4H PRN Pain , Severe (7-10) Ondansetron HCl 4 mg 01/17/21 23:05 Ondansetron 4 Mg/2 Ml Inj IV Q8H PRN Nausea And Vomiting Pantoprazole Sodium 40 mg 01/18/21 10:00 01/20/21 22:02 Pantoprazole 40 Mg Inj IV 40 mg BID BRITTANI Administration Sodium Chloride 10 ml 01/18/21 10:00 01/20/21 22:02 Sodium Chloride 0.9% 10 Ml Flush Syringe IV 10 ml BID BRITTANI Administration Sodium Chloride 10 ml 01/17/21 23:05 Sodium Chloride 0.9% 10 Ml Flush Syringe IV PRN PRN LINE FLUSH Valsartan 80 mg 01/19/21 11:00 01/20/21 22:02 Valsartan 40 Mg Tab PO 80 mg BID BRITTANI Administration Nutrition/Malnutrition Assess - Dietary Evaluation Nutrition/Malnutrition Findings: Nutrition Notes Start: 01/18/21 14:39 Freq: Status: Active Protocol: Document 01/18/21 14:39 SANDEEP (Rec: 01/18/21 15:03 SANDEEP [id number]) Nutrition Notes Need for Assessment generated from: Education Initial or Follow up Assessment Current Diagnosis Heart Failure,Respiratory Failure Other Pertinent Diagnosis Dyspnea, GI bleeding Current Diet NPO (since 01/18). Labs/Tests 01/18: CO2 19, Glu 132. Pertinent Medications 01/18: Nutritionally unremarkable. Height 5 ft 2 in Weight 87.09 kg [place] Body Weight (kg) 50.00 BMI 35.1 Weight Status Obese Percent of energy/protein needs met: Pt is on NPO since 01/16. Burn Absent Trauma Absent GI Symptoms None Food Allergy No Skin Integrity/Comment Integumentary; clear, warm, dry. Current % PO Other Minimum of two criteria No physical signs of malnutrition #1 Nutrition Diagnosis No nutrition diagnosis at this time Comments: Pt does not seems to be candidate for nutrition education at the time. Is patient on ventilator? No Is Patient Ambulatory and/or Out of Bed Yes REE-([facility]-ambulatory/OOB) [ 0916.895 [id number]] Kcal/Kg value to use for calculation 25 Approximate Energy Requirements Using 2177 kcal/Kg Calculation Used for Recommendations Kcal/kg Additional Notes Pt is currently on NPO. Protein: 0.8-1.0 g/Kg/day; 40- 50 g/day; 160-200 Kcal/day ( from IBW). Fluids: 1.0 ml/Kcal/day, or as per MD. Nutrition Intervention Change Diet Order: Continue NPO, or as per MD. Goal #1 Maintain body weight within +/ -3% of current BWt during LOS. Goal #2 Reach and maintain acceptable chemistry lab values during LOS. Follow-Up By: 01/25/21 Additional Comments Continue monitoring Hydration, and BM.
[2021-01-21] MEDS: INSULIN LISPRO 100 UNIT/ML SUB-Q SCH ×3 (08:07→17:16)
[2021-01-21 08:10] VITALS: BP 108/43
[2021-01-21] MEDS: glipiZIDE 5 MG TAB PO SCH (08:35)
[2021-01-21] MEDS: PANTOPRAZOLE 40 MG INJ IV SCH (09:06)
[2021-01-21] MEDS: VALSARTAN 40 MG TAB PO SCH (09:06)
[2021-01-21] MEDS: COMBIGAN 0.2-0.5% OPHTH SOLN OU SCH (09:07)
--- NOTE | 2021-01-21 10:01 | Hem/Onc Progress Note ---
Subjective Date of service: 01/21/21 Interval history: Heme followup note Televisit via [facility] CPT: 59476 Dx: anemia This is an 85yo female who presents to the ED with shortness of breath Recently seen by PCP and was diagnosed with bronchitis Past medical history of hypertension and diabetes Noted to have minimal swelling of bilateral lower extremities As per nurse, patient with delayed mentation Pt denies any visual of bleeding Complaints of feeling tired Labs reveal hgb 7 on admission Positive fecal occult blood EGD/colonoscopy completed 01/20/21 EGD: hiatal hernia, gastritis Colon: internal hemorrhoids DATA REVIEWED BELOW WBC 12.4 Hgb 8.5 Hct 27.1 MCV 72 Plts 414 IMP: Presumed iron deficiency based on low MCV appears like chronic bleeding No GI tract malignancy as per egd/colonoscopy Bleeding possible due to internal hemorrhoids Hemoglobin stable REC/PLAN: OK to plan discharge with outpatient GI and primary care follow-up arranged Laboratory Last Values WBC 12.4 K/mm3 (4.5-11.0) H 01/20/21 04:00 RBC 3.76 M/mm3 (3.65-5.03) 01/20/21 04:00 Hgb 8.5 gm/dl (10.1-14.3) L 01/20/21 04:00 Hct 27.1 % (30.3-42.9) L 01/20/21 04:00 MCV 72 fl (79-97) L 01/20/21 04:00 MCH 23 pg (28-32) L 01/20/21 04:00 MCHC 31 % (30-34) 01/20/21 04:00 RDW 22.3 % (13.2-15.2) H 01/20/21 04:00 Plt Count 414 K/mm3 (140-440) 01/20/21 04:00 Lymph % (Auto) 7.2 % (13.4-35.0) L 01/20/21 04:00 [place] % (Auto) 12.2 % (0.0-7.3) H 01/20/21 04:00 Eos % (Auto) 1.2 % (0.0-4.3) 01/20/21 04:00 Baso % (Auto) 0.6 % (0.0-1.8) 01/20/21 04:00 Lymph # (Auto) 0.9 K/mm3 (1.2-5.4) L 01/20/21 04:00 [place] # (Auto) 1.5 K/mm3 (0.0-0.8) H 01/20/21 04:00 Eos # (Auto) 0.1 K/mm3 (0.0-0.4) 01/20/21 04:00 Baso # (Auto) 0.1 K/mm3 (0.0-0.1) 01/20/21 04:00 Seg Neutrophils % 78.8 % (40.0-70.0) H 01/20/21 04:00 Seg Neutrophils # 9.7 K/mm3 (1.8-7.7) H 01/20/21 04:00 PT 14.9 Sec. (12.2-14.9) 01/18/21 08:33 INR 1.11 (0.87-1.13) 01/18/21 08:33 APTT 32.5 Sec. (24.2-36.6) 01/17/21 20:43 Sodium 139 mmol/L (137-145) 01/20/21 04:00 Potassium 3.5 mmol/L (3.6-5.0) L D 01/20/21 04:00 Chloride 99.1 mmol/L (98-107) 01/20/21 04:00 Carbon Dioxide 24 mmol/L (22-30) 01/20/21 04:00 Anion Gap 19 mmol/L 01/20/21 04:00 BUN 15 mg/dL (7-17) 01/20/21 04:00 Creatinine 1.1 mg/dL (0.6-1.2) D 01/20/21 04:00 Estimated GFR 57 ml/min 01/20/21 04:00 BUN/Creatinine Ratio 14 % 01/20/21 04:00 Glucose 159 mg/dL (65-100) H 01/20/21 04:00 POC Glucose 123 mg/dL (70-105) H 01/21/21 07:21 Calcium 8.6 mg/dL (8.4-10.2) 01/20/21 04:00 Magnesium 2.20 mg/dL (1.7-2.3) 01/17/21 20:43 Total Bilirubin 0.20 mg/dL (0.1-1.2) 01/17/21 15:51 AST 13 units/L (5-40) 01/17/21 15:51 ALT 6 units/L (7-56) L 01/17/21 15:51 Alkaline Phosphatase 79 units/L (35-129) 01/17/21 15:51 Total Creatine Kinase 43 units/L (30-135) 01/17/21 20:43 Troponin T < 0.010 ng/mL (0.00-0.029) 01/17/21 15:51 NT-Pro-B Natriuret Pep 2631 pg/mL (0-900) H 01/17/21 20:43 Total Protein 7.0 g/dL (6.3-8.2) 01/17/21 15:51 Albumin 3.4 g/dL (3.9-5) L 01/17/21 15:51 Albumin/Globulin Ratio 0.9 % 01/17/21 15:51 Blood Type A POSITIVE 01/17/21 20:40 Antibody Screen Negative 01/17/21 20:40 Crossmatch See Detail 01/17/21 20:40 Objective - Constitutional Vitals: Last Vital Signs Temp 98.7 F 01/21/21 08:09 Pulse 74 01/21/21 08:09 Resp 20 01/21/21 08:09 BP 108/43 01/21/21 08:09 Pulse Ox 97 01/21/21 08:09 - Labs Lab Results: Laboratory Results - last 24 hr 01/20/21 01/20/21 01/21/21 17:15 21:30 07:21 POC Glucose 115 H 121 H 123 H Medications & Allergies - Medications Allergies/Adverse Reactions: Allergies No Known Allergies Allergy (Verified 01/18/21 08:25) Home Medications: Home Medications Medication Instructions Recorded Confirmed Last Taken Type [place] 0.01% 1 drop OU HS 06/20/19 01/18/21 06/19/19 21:00 History glipiZIDE [Glucotrol] 5 mg PO DAILY 06/20/19 01/18/21 06/20/19 08:00 History Albuterol Mdi (or & Nicu Only) 2 puff IH QID PRN 01/18/21 01/18/21 Unknown History [ProAir HFA Inhaler] Chlorpheniramine/Phenyleph/Dm 1 tsp PO HS 01/18/21 01/18/21 Unknown History [Rycontuss Liquid] Combigan 0.2%-0.5% Eye Drops 1 drop OU BID 01/18/21 01/18/21 Unknown History Dorzolamide 2% Eye Drop 1 drop OU BID 01/18/21 01/18/21 Unknown History Om3/Dha/Epa/Cod Liver Oil/A/D3 1 each PO QDAY 01/18/21 01/18/21 Unknown History [Cod Liver Oil Softgel] Brimonidine/Timolol 0.2-0.5% 1 drops OU Q12HR bottle 01/20/21 Unknown Rx [Combigan 0.2-0.5%] Pantoprazole [Protonix] 40 mg PO QDAY #30 tablet 01/20/21 Unknown Rx Valsartan [Diovan] 80 mg PO BID #60 tablet 01/20/21 Unknown Rx amLODIPine 5 mg PO DAILY #30 01/20/21 Unknown Rx Active Medications: Generic Name Dose Route Start Last Admin Trade Name Freq PRN Reason Stop Dose Admin Acetaminophen 650 mg 01/17/21 23:05 Acetaminophen 325 Mg Tab PO Q4H PRN Pain MILD(1-3)/Fever >100.5/JIMENES Albuterol 2.5 mg 01/17/21 23:27 Albuterol 2.5 Mg/3 Ml Nebu IH Q4HRT PRN Shortness Of Breath Brimonidine/Timolol 1 drops 01/18/21 22:00 01/21/21 09:07 Combigan 0.2-0.5% Ophth Soln OU 1 drops Q12HR BRITTANI Administration Dextrose 50 ml 01/17/21 23:05 Dextrose 50% In Water (25gm) 50 Ml Syringe IV Q30MIN PRN Hypoglycemia Protocol Glipizide 5 mg 01/19/21 08:00 01/21/21 08:35 Glipizide 5 Mg Tab PO 5 mg QDDIAB BRITTANI Administration Insulin Human Lispro 0 unit 01/18/21 07:30 01/21/21 08:07 Insulin Lispro 100 Unit/Ml SUB-Q Not Given ACHS BRITTANI Protocol Latanoprost 1 drops 01/18/21 22:00 01/20/21 22:02 Latanoprost 0.005% Ophth Soln 2.5 Ml OU 1 drops QHS BRITTANI Administration Magnesium Hydroxide 30 ml 01/17/21 23:05 Magnesium Hydroxide (Mom) Oral Liqd Udc PO Q4H PRN Constipation Miscellaneous Medication 1 drop 01/18/21 22:00 01/18/21 23:53 Dorzolamide 2% Eye Drop OU Not Given BID BRITTANI Morphine Sulfate 2 mg 01/17/21 23:05 Morphine 2 Mg/1 Ml Inj IV Q4H PRN Pain, Moderate (4-6) Morphine Sulfate 4 mg 01/17/21 23:05 Morphine 4 Mg/1 Ml Inj IV Q4H PRN Pain , Severe (7-10) Ondansetron HCl 4 mg 01/17/21 23:05 Ondansetron 4 Mg/2 Ml Inj IV Q8H PRN Nausea And Vomiting Pantoprazole Sodium 40 mg 01/18/21 10:00 01/21/21 09:06 Pantoprazole 40 Mg Inj IV 40 mg BID BRITTANI Administration Sodium Chloride 10 ml 01/18/21 10:00 01/21/21 09:06 Sodium Chloride 0.9% 10 Ml Flush Syringe IV 10 ml BID BRITTANI Administration Sodium Chloride 10 ml 01/17/21 23:05 Sodium Chloride 0.9% 10 Ml Flush Syringe IV PRN PRN LINE FLUSH Valsartan 80 mg 01/19/21 11:00 01/21/21 09:06 Valsartan 40 Mg Tab PO 80 mg BID BRITTANI Administration
--- NOTE | 2021-01-21 13:03 | Progress Note ---
Assessment and Plan 85-year-old female with known history of hypertension and diabetes mellitus presenting in the emergency room today complaining of shortness of breath. HFpEF * Echo 06/21/2019-EF 55 to 60%, abnormal left ventricular diastolic dysfunction is observed, right ventricular systolic function is, left and right atrium are normal in size. * CXR shows bronchiolitis vs pulm edema with atelectasis vs small pleural effusions * Echo 01/17/2021-EF 55 to 60%, mild concentric left ventricular hypertrophy, mild diastolic dysfunction is present impaired relaxation pattern, right ventricular systolic function is normal, left atrium is mildly dilated, right atrium is normal in size, mild to moderate mitral regurgitation eccentric jet posteriorly directed, there is mild pulmonary hypertension, mild tricuspid regurgitation RSVP 44mmHg. HTN * As outpatient on: Amlodipine 5mg QD Anemia * Initial HgB 7->10 after patient received 1unit of blood. * Management per primary team Plan: Continue Valsartan 80mg PO BID. Patient is stable and may be discharged from a cardiac standpoint Patient has a follow up with Dr. Lopez, [facility], on 02/04/2021 at 10:00am at our [place] location. Patient seen in conjunction with Dr. Lopez who agrees with this plan of care. Will continue to follow. - Patient Problems (1) CHF (congestive heart failure) Current Visit: Yes Status: Acute (2) GI bleed Current Visit: Yes Status: Suspected (3) Guaiac positive stools Current Visit: Yes Status: Acute (4) Microcytic anemia Current Visit: Yes Status: Acute (5) Short of breath on exertion Current Visit: Yes Status: Acute (6) Thrombocytopenia Current Visit: Yes Status: Acute (7) HTN (hypertension) Current Visit: Yes Status: Chronic Qualifiers: Hypertension type: primary hypertension Qualified Code(s): I10 - Essential (primary) hypertension (8) T2DM (type 2 diabetes mellitus) Current Visit: Yes Status: Chronic Qualifiers: Diabetes mellitus buttermaker helper insulin use: unspecified custodial insulin use status Subjective Date of service: 01/21/21 Principal diagnosis: Anemia Interval history: Patient in no acute distress. no caridac complaints sinus 68 with RBBB and no events on monitor Objective Vital Signs Temp Pulse Pulse Resp BP Pulse Ox 01/21/21 08:09 98.7 F 74 20 108/43 97 01/21/21 08:00 89 17 96 01/21/21 04:05 98.2 F 76 16 149/54 92 01/20/21 23:51 99.1 F 85 18 126/66 100 01/20/21 22:00 99 01/20/21 20:00 96 01/20/21 19:34 97.9 F 69 18 122/47 91 01/20/21 16:12 70 20 135/53 96 01/20/21 16:07 78 20 111/46 97 01/20/21 16:02 75 18 117/51 98 01/20/21 16:00 97 01/20/21 15:57 67 18 102/40 96 01/20/21 15:52 73 18 124/38 97 01/20/21 15:47 73 20 131/56 97 01/20/21 15:42 99 F 83 18 124/55 100 01/20/21 14:53 98.8 F 87 30 H 150/67 98 - Physical Examination General: No Apparent Distress HEENT: Positive: EOMI, Normocephaly Neck: Positive: neck supple, trachea midline. Negative: JVD/HJR Cardiac: Positive: Reg Rate and Rhythm Lungs: Positive: Normal Breath Sounds Neuro: Positive: Grossly Intact Abdomen: Positive: Soft. Negative: Tender Skin: Negative: Rash Musculoskeletal: No Pain Extremities: Present: lower extr. pulses, edema - Imaging and Cardiology EKG: report reviewed, image reviewed Echo: report reviewed (01/17/2021 - EF 55-60%, mild LVH, mild diastolic dysfxn, mild-mod MR, mild TR, mild pulm HTN w/RVSP 44mmHg, mild KS) - Telemetry EKG Rhythm: Sinus Rhythm - EKG Sinus rhythms and dysrhythmias: sinus rhythm AV and intraventricular conduction: right bundle branch block, left anterior fascicular
--- NOTE | 2021-01-21 15:12 | Gastroenterology Progress Note ---
Assessment and Plan GI: anemia w/ noted negative egd/colon - follow h/h - diet as tolerated - consider pill cam as outpt - ok to dc from GI standpoint, will sign off Subjective Date of service: 01/21/21 Principal diagnosis: Anemia Interval history: - no GI issues overnight Objective - Constitutional Vitals: Temp Pulse Resp BP Pulse Ox 98.7 F 74 20 108/43 97 01/21/21 08:09 01/21/21 08:09 01/21/21 08:09 01/21/21 08:09 01/21/21 08:09 General appearance: no acute distress - EENT Eyes: PERRL - Respiratory Respiratory: bilateral: CTA - Cardiovascular Rhythm: regular Heart Sounds: Present: S1 & S2 - Gastrointestinal General gastrointestinal: Present: soft, non-tender, non-distended - Labs CBC & Chem 7: 01/20/21 04:00 01/20/21 04:00 Labs: Laboratory Results - last 24 hr 01/20/21 01/20/21 01/21/21 17:15 21:30 07:21 POC Glucose 115 H 121 H 123 H
[2021-01-21] MEDS ORDERED: PANTOPRAZOLE 40 MG TAB PO SCH (16:30)
== END 2021-01-21 18:40 | disposition home or self-care (01) | DRG 377 ==
LOC: ED 14:48 → 3A 21:34 → 4A 23:35 → OBSVTOIN 01-18 16:02 → 4A 01-18 22:40
PROVIDERS: ADMIT Internal Medicine Geriatric Medicine; ATTEND Hospitalist
PROC: 30233N1 Transfusion of Nonautologous Red Blood Cells into Peripheral Vein, Percutaneous Approach (ICD-10-PCS; 2021-01-18)
PROC: 0DJ08ZZ Inspection of Upper Intestinal Tract, Via Natural or Artificial Opening Endoscopic (ICD-10-PCS; principal; 2021-01-20)
PROC: 0DJD8ZZ Inspection of Lower Intestinal Tract, Via Natural or Artificial Opening Endoscopic (ICD-10-PCS; 2021-01-20)
DX: K29.71 Gastritis, unspecified, with bleeding (principal); I50.33 Acute on chronic diastolic (congestive) heart failure; D50.9 Iron deficiency anemia, unspecified; Z82.49 Family history of ischemic heart disease and other diseases of the circulatory system; Z20.822 Contact with and (suspected) exposure to COVID-19; D69.6 Thrombocytopenia, unspecified; K57.31 Diverticulosis of large intestine without perforation or abscess with bleeding; E78.5 Hyperlipidemia, unspecified; I11.0 Hypertensive heart disease with heart failure; E11.9 Type 2 diabetes mellitus without complications; K44.9 Diaphragmatic hernia without obstruction or gangrene; K64.8 Other hemorrhoids
CPT/HCPCS: 36415; 71046; 80048; 80053; 82550; 82962; 83735; 83880; 84484; 85025; 85610; 85730; 86850; 86900; 86901; 86920; 93005; 93306; 94760; G0378; C9113; J1940; J2704; J7030; J7040; P9016